=== PATIENT | male | born 1990 | race Two or more races ===

== ENCOUNTER 2016-08-14 03:39 | Emergency (ER) | payer BC, OTHER ==
[~2016-08-14 03:39] MED LIST: CLON0.5T3 PO; DOXY100T9 PO; EQUATE COUGH; HYDR-971 PO; IBUP200T43 PO; PRED20TA PO
[2016-08-14 03:51] VITALS: BP 153/74
[2016-08-14] MEDS ORDERED: ONDANSETRON ODT 4 MG TAB.RAPDIS PO ONE (04:00)
--- NOTE | 2016-08-14 04:08 | PHYS DOC ---
General Chief Complaint: ABDOMINAL PAIN Stated Complaint: PAIN IN LOWER ABDOMEN,NAUSEA Time Seen by MD: 03:42 Source: patient, old records Exam Limitations: no limitations Problems: History of Present Illness Initial Comments Pt is 25/M to ED c/o abdominal pain. Pt states that immediately prior to arrival pt was awakened with low abdominal pain described as moderate/cramping. Symptoms were relieved with one loose watery (diarrhea) stool. He decided to come to ED, on the way says he became nauseous and remains nauseous with belching. No emesis in ED or at home, no travel/bad food exposure. No fever/chills/myalgias, appetite intact. Pt states his appendix was removed at [facility] about 6 weeks ago. He's had his post-op appointments has been healing well no further f/u with surgery necessary. No prearrival treatment, no bloating, no blood in stool. Pt has 2 year history of abdominal pain with numerous ED visits [facility], [facility], [facility], [facility], [facility] known. Repeated negative workups, pt had been referred to GI and refused to go. ED VS: 97.9, 62, 20, 153/74, 100% RA Timing/Duration: 1/2 hour Severity: moderate Modifying Factors: worse with eating, improves with other Associated Symptoms: nausea/vomiting, other Allergies: Coded Allergies: amoxicillin (Unverified Allergy, Intermediate, rash, 03/31/16) rocephin ok clavulanic acid (Unverified Allergy, Intermediate, 02/24/14) Past Medical History Medical History: other (anxiety, GERD, noncompliance, tachycardia, leukocytosis , chronic abdominal pain) Surgical History: no surgical history, appendectomy Family History Significant Family History: no pertinent family hx Social History Smoker: cigarettes Alcohol: occasionally Drugs: none Review of Systems Constitutional: denies chills, denies diaphoresis, denies fever, denies malaise Respiratory: denies cough, denies shortness of breath, denies wheezing Cardiovascular: denies chest pain, denies palpitations Gastrointestinal: see HPI Genitourinary: denies dysuria, denies frequency, denies hematuria Musculoskeletal: denies back pain, denies joint swelling, denies neck pain Psychiatric/Neurological: denies headache, denies numbness, denies paresthesia Physical Exam General Appearance: WD/WN, no apparent distress Ear, Nose, Throat: hearing grossly normal, normal ENT inspection, normal pharynx Neck: non-tender, supple Respiratory: normal breath sounds, no respiratory distress Cardiovascular: normal peripheral pulses, regular rate, rhythm Gastrointestinal: normal bowel sounds, soft (ND, mild suprapubic TTP no r/g/ mass, healing scars c/w history) Rectal: deferred Back: no CVA tenderness, no vertebral tenderness Extremities: non-tender, normal inspection 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 Departure Time of Disposition: 04:53 Disposition: 01 HOME, SELF-CARE Diagnosis: gastroenteritis, hypokalemia Condition: GOOD Patient Instructions: Hypokalemia-Brief, Viral Gastroenteritis, [id number] Additional Instructions: Activity as tolerated. Clear liquids, advance to bland diet as tolerated. Aggressive hydration with gatorade, water. Eat one banana twice daily until follow up appointment. Rx: zofran odt, dicyclomine Follow up with your doctor in 3 days for recheck of symptoms and potassium. Return to ED with new or changing symptoms. ALYCIA MARTINEZ DO Aug 14, 2016 04:08
[2016-08-14 04:24] LABS: BILIRUBIN,URINE NEG (NEG); CLARITY,URINE CLEAR; COLOR,URINE YELLOW; GLUCOSE,URINE NEG (NEG); UROBILINOGEN,URINE 0.2 mg/dL (0.2 mg/dL)
[2016-08-14 04:25] LABS: BACTERIA,URINE 0 /HPF (0-FEW); NITRITE,URINE NEG (NEG); RBC,URINE OCC /HPF (0-2); WBC,URINE RARE /HPF (0-4)
[2016-08-14] MEDS ORDERED: SIMETHICONE 80 MG TAB.CHEW PO PRN (04:30)
[2016-08-14 04:45] LABS: BASO # 0.1 x10^3/uL (0.0-0.2); BASO % 1 % (0-3); EOS # 0.3 x10^3/uL (0.0-0.7); EOS % 2 % (0-3); HEMATOCRIT 44.9 % (39.0-53.0); HEMOGLOBIN 14.8 g/dL (13.0-17.5); LYMPH # 4.2 x10^3/uL (1.0-4.8); LYMPH % 35 % (24-48); MEAN CORPUSCULAR HEMOGLOBIN 28 pg (25-35); MEAN CORPUSCULAR HGB CONC 33 g/dL (31-37); MEAN CORPUSCULAR VOLUME 86 fL (79-100); MONO # 1.3 x10^3/uL (0.0-1.1); MONO % 11 % (0-9); NEUT % 51 % (31-73); PLATELET COUNT 276 x10^3/uL (140-400); RED BLOOD COUNT 5.22 x10^6/uL (4.30-5.70); RED CELL DISTRIBUTION WIDTH 13.4 % (11.5-14.5); WHITE BLOOD COUNT 11.8 x10^3/uL (4.0-11.0)
[2016-08-14 04:48] LABS: CALCIUM 8.5 mg/dL (8.5-10.1); POTASSIUM 3.3 mmol/L (3.5-5.1)
[2016-08-14] MEDS ORDERED: DICY20TA3 PO (04:57)
[2016-08-14] MEDS ORDERED: ONDA4TAB10 PO (04:57)
[2016-08-14] MEDS ORDERED: POTASSIUM CHLORIDE 20 MEQ TABLET.ER. PO ONE (05:00)
--- NOTE | 2016-08-14 07:15 | RAD ---
Abdomen radiograph History: Lower abdominal pain with diarrhea and nausea today. Comparison: 06/28/2016. Findings: AP supine and upright views of the abdomen. Bowel gas pattern is nonspecific, without evidence of obstruction. No convincing nephrolithiasis is seen. Suture material is seen in the right lower quadrant, compatible with appendectomy. Impression: Nonspecific bowel gas pattern.
== END 2016-08-14 05:10 | disposition home or self-care (01) ==
LOC: ER 03:39
DX: K52.9 Noninfective gastroenteritis and colitis, unspecified (principal); E87.6 Hypokalemia; F17.210 Nicotine dependence, cigarettes, uncomplicated; K21.9 Gastro-esophageal reflux disease without esophagitis; G89.29 Other chronic pain; Z88.1 Allergy status to other antibiotic agents
CPT/HCPCS: 36415; 74020; 80048; 81001; 85027; 99285; Q0162

== ENCOUNTER 2016-12-02 21:36 | Emergency (ER) | payer BC ==
[~2016-12-02] VITALS: Ht 175.3 cm; Wt 103.6 kg
[~2016-12-02 21:36] MED LIST changes: +DICY20TA3 PO; +ONDA4TAB10 PO
[2016-12-02 21:43] VITALS: BP 153/85
--- NOTE | 2016-12-02 23:37 | ED.ADGEN ---
Past History Past Medical History: Anxiety Additional Past Medical Histor: Tachycardia for 3 years Past Surgical History: Appendectomy Smoking: Cigarettes Alcohol Use: None Drug Use: None Adult General Chief Complaint Chief Complaint anxiety HPI HPI long hx of anxiety. started getting anxious tonight while watching TV. went outside to get air but couldn't calm down. He states he has had holter monitors before that were normal. he takes clonazepam. he did not take an extra one tonight. he is calmer now. Review of Systems Review of Systems Constitutional: Denies fever or chills [] Eyes: Denies change in visual acuity, redness, or eye pain [] HENT: Denies nasal congestion or sore throat [] Respiratory: Denies cough or shortness of breath [] Cardiovascular: No additional information not addressed in HPI [] GI: Denies abdominal pain, nausea, vomiting, bloody stools or diarrhea [] : Denies dysuria or hematuria [] Musculoskeletal: Denies back pain or joint pain [] Integument: Denies rash or skin lesions [] Neurologic: Denies headache, focal weakness or sensory changes [] Endocrine: Denies polyuria or polydipsia [] Current Medications Current Medications Current Medications Medications (Trade) Dose Ordered Sig/Lionel Start Time Stop Time Status Last Admin Dose Admin Clonazepam (KlonoPIN) 0.5 mg 1X ONCE 12/02/16 23:45 12/02/16 23:46 DC 12/02/16 23:45 0.5 MG Famotidine (Pepcid) 20 mg 1X ONCE 12/03/16 00:00 12/03/16 00:00 DC 12/02/16 23:48 20 MG Allergies Allergies Allergies Coded Allergies Type Severity Reaction Last Updated Verified amoxicillin Allergy Intermediate rash 03/31/16 No clavulanic acid Allergy Intermediate 02/24/14 No Physical Exam Physical Exam Constitutional: Well developed, well nourished, no acute distress, non-toxic appearance, not anxious now. [] HENT: Normocephalic, atraumatic, bilateral external ears normal, oropharynx moist, no oral exudates, nose normal. [] Eyes: PERRLA, EOMI, conjunctiva normal, no discharge. [] Neck: Normal range of motion, no tenderness, supple, no stridor. [] Cardiovascular:Heart rate regular rhythm, no murmur [] Lungs & Thorax: Bilateral breath sounds clear to auscultation [] Abdomen: Bowel sounds normal, soft, no tenderness, no masses, no pulsatile masses. [] Skin: Warm, dry, no erythema, no rash. [] Back: No tenderness, no CVA tenderness. [] Extremities: No tenderness, no cyanosis, no clubbing, ROM intact, no edema. [] Neurologic: Alert and oriented X 3, normal motor function, normal sensory function, no focal deficits noted. [] Psychologic: Affect normal, judgement normal, mood normal. [] Current Patient Data Vital Signs Vital Signs Date Time Temp Pulse Resp B/P (MAP) Pulse Ox O2 Delivery O2 Flow Rate FiO2 12/02/16 21:43 98.8 80 16 96 Room Air EKG EKG [] Radiology/Procedures Radiology/Procedures [] Course & Med Decision Making Course & Med Decision Making pt with significant, uncontrolled anxiety. he has not seen counselor to learn coping skills. I tried to express the importance of counseling. he is to call pcp to discuss other meds and go to guidance center for counseling Final Impression Final Impression anxiety[] Problems: Dragon Disclaimer Dragon Disclaimer This electronic medical record was generated, in whole or in part, using a voice recognition dictation system. ALEM PEREZ MD Dec 02, 2016 23:37
[2016-12-02] MEDS ORDERED: clonazePAM 1 MG TABLET PO ONE (23:45)
[2016-12-03] MEDS ORDERED: FAMOTIDINE 20 MG TABLET PO ONE
== END 2016-12-02 23:50 | disposition home or self-care (01) ==
LOC: ER 21:36
DX: F41.9 Anxiety disorder, unspecified (principal); F17.210 Nicotine dependence, cigarettes, uncomplicated; Z88.1 Allergy status to other antibiotic agents
CPT/HCPCS: 99284

== ENCOUNTER 2016-12-15 02:34 | Emergency (ER) | payer BC ==
[~2016-12-15] VITALS: Ht 175.3 cm; Wt 103.6 kg
[2016-12-15 02:56] VITALS: BP 142/83
--- NOTE | 2016-12-15 03:00 | PHYS DOC ---
Past History Past Medical History: Anxiety Additional Past Medical Histor: Tachycardia for 3 years Past Surgical History: Appendectomy Smoking: Cigarettes Alcohol Use: None Drug Use: None Adult General Chief Complaint Chief Complaint: NAUSEA/VOMITING/DIARRHEA HPI HPI Patient is a 26 year old male who presents with abdominal pain. He has had pain like this before he states. This episode awakened him from sleep approx one hour ago. Nausea but no vomiting. No ethanol use. No fever. Has been constipation; no blood in stool. Pain is "all over" and cramping. No travel. Review of Systems Review of Systems Constitutional: Denies fever or chills Eyes: Denies change in visual acuity, redness, or eye pain HENT: Denies nasal congestion or sore throat Respiratory: Denies cough or shortness of breath Cardiovascular: No chest pain GI: Denies abdominal pain, nausea, vomiting, bloody stools or diarrhea : Denies dysuria or hematuria Musculoskeletal: Denies back pain or joint pain Integument: Denies rash or skin lesions Neurologic: Denies headache, focal weakness or sensory changes Allergies Allergies Allergies Coded Allergies Type Severity Reaction Last Updated Verified amoxicillin Allergy Intermediate rash 03/31/16 No clavulanic acid Allergy Intermediate 02/24/14 No Physical Exam Physical Exam Constitutional: Well developed, well nourished, no acute distress, non-toxic appearance. HENT: Normocephalic, atraumatic, bilateral external ears normal, oropharynx moist, no oral exudates, nose normal. Eyes: PERRLA, EOMI, conjunctiva normal, no discharge. Neck: Normal range of motion, no tenderness, supple, no stridor. Cardiovascular:Heart rate regular rhythm, no murmur Lungs & Thorax: Bilateral breath sounds clear to auscultation Abdomen: Bowel sounds normal, soft, tenderness mid abdomen but no rebound or guarding, no masses, no pulsatile masses. Skin: Warm, dry, no erythema, no rash. Multiple tattoos. Back: No tenderness, no CVA tenderness. Extremities: No tenderness, no cyanosis, no clubbing, ROM intact, no edema. Neurologic: Alert and oriented X 3, normal motor function, normal sensory function, no focal deficits noted. Psychologic: Affect normal, judgement normal, mood normal. Current Patient Data Vital Signs Vital Signs Date Time Temp Pulse Resp B/P (MAP) Pulse Ox O2 Delivery O2 Flow Rate FiO2 8/7/17 02:56 97.8 66 20 99 Room Air Lab Results Laboratory Tests Test 12/15/16 03:10 White Blood Count 10.8 x10^3/uL Red Blood Count 5.10 x10^6/uL Hemoglobin 14.9 g/dL Hematocrit 44.5 % Mean Corpuscular Volume 87 fL Mean Corpuscular Hemoglobin 29 pg Mean Corpuscular Hemoglobin Concent 33 g/dL Red Cell Distribution Width 13.7 % Platelet Count 269 x10^3/uL Neutrophils (%) (Auto) 53 % Lymphocytes (%) (Auto) 35 % Monocytes (%) (Auto) 8 % Eosinophils (%) (Auto) 3 % Basophils (%) (Auto) 1 % Neutrophils # (Auto) 5.8 x10^3uL Lymphocytes # (Auto) 3.7 x10^3/uL Monocytes # (Auto) 0.9 x10^3/uL Eosinophils # (Auto) 0.3 x10^3/uL Basophils # (Auto) 0.1 x10^3/uL Sodium Level 142 mmol/L Potassium Level 4.4 mmol/L Chloride Level 107 mmol/L Carbon Dioxide Level 31 mmol/L Anion Gap 4 Blood Urea Nitrogen 12 mg/dL Creatinine 1.0 mg/dL Estimated GFR (Cockcroft-Gault) 90.3 BUN/Creatinine Ratio 12 Glucose Level 97 mg/dL Calcium Level 8.2 mg/dL Total Bilirubin 0.3 mg/dL Aspartate Amino Transf (AST/SGOT) 15 U/L Alanine Aminotransferase (ALT/SGPT) 24 U/L Alkaline Phosphatase 82 U/L Total Protein 6.7 g/dL Albumin 3.7 g/dL Albumin/Globulin Ratio 1.2 Amylase Level 41 U/L Lipase 112 U/L Current Medications Medications (Trade) Dose Ordered Sig/Lionel Route PRN Reason Start Time Stop Time Status Last Admin Dose Admin Ondansetron HCl (Zofran) 4 mg 1X ONCE IV 12/15/16 03:30 12/15/16 03:31 DC 12/15/16 03:13 Sodium Chloride 100 ml @ 200 mls/hr 1X ONCE IV 12/15/16 03:30 12/15/16 03:59 Cancel Sodium Chloride 1,000 ml @ 1,000 mls/hr Q1H IV 12/15/16 03:15 12/15/16 04:14 DC 12/15/16 03:13 Course & Med Decision Making Course & Med Decision Making Evaluated patient. Lab is normal. No evidence of acute surgical abdomen. Home w rx zofran and bentyl and referral for f/u Dragon Disclaimer Dragon Disclaimer This chart was dictated in whole or in part using Voice Recognition software in a busy, high-work load, and often noisy Emergency Department environment. It may contain unintended and wholly unrecognized errors or omissions. Departure Departure: Impression: Primary Impression: Abdominal pain Disposition: HOME, SELF-CARE Condition: GOOD Referrals: CHELSEA OLSON MD (PCP) Patient Instructions: Abdominal Pain Scripts Ondansetron (ZOFRAN ODT) 8 Mg Tab.rapdis 8 MG PO PRN Q6-8HRS Y for NAUSEA, #10 Prov: CHRISSIE CASTAÑEDA MD 12/15/16 Dicyclomine Hcl (BENTYL) 10 Mg Capsule 1 CAP PO TID, #20 CAP 1 Refill Prov: CHRISSIE CASTAÑEDA MD 12/15/16 CHRISSIE CASTAÑEDA MD Dec 15, 2016 03:00
[2016-12-15] MEDS ORDERED: IV NORMAL SALINE 1,000ML 1,000 ML IV SCH (03:15)
[2016-12-15] MEDS ORDERED: ONDANSETRON PF 4 MG/2 ML VIAL. IV ONE (03:30)
[2016-12-15] MEDS ORDERED: IV NORMAL SALINE 100ML 100 ML IV ONE (03:30)
[2016-12-15 03:34] LABS: BASO # 0.1 x10^3/uL (0.0-0.2); BASO % 1 % (0-3); EOS # 0.3 x10^3/uL (0.0-0.7); EOS % 3 % (0-3); HEMATOCRIT 44.5 % (39.0-53.0); HEMOGLOBIN 14.9 g/dL (13.0-17.5); LYMPH # 3.7 x10^3/uL (1.0-4.8); LYMPH % 35 % (24-48); MEAN CORPUSCULAR HEMOGLOBIN 29 pg (25-35); MEAN CORPUSCULAR HGB CONC 33 g/dL (31-37); MEAN CORPUSCULAR VOLUME 87 fL (79-100); MONO # 0.9 x10^3/uL (0.0-1.1); MONO % 8 % (0-9); NEUT # 5.8 x10^3uL (1.8-7.7); NEUT % 53 % (31-73); PLATELET COUNT 269 x10^3/uL (140-400); RED CELL DISTRIBUTION WIDTH 13.7 % (11.5-14.5); WHITE BLOOD COUNT 10.8 x10^3/uL (4.0-11.0)
[2016-12-15 03:44] LABS: ALBUMIN 3.7 g/dL (3.4-5.0); ALBUMIN/GLOBULIN RATIO 1.2 (1.0-1.7); CALCIUM 8.2 mg/dL (8.5-10.1); GFR 90.3; TOTAL BILIRUBIN 0.3 mg/dL (0.2-1.0); TOTAL PROTEIN 6.7 g/dL (6.4-8.2)
[2016-12-15 04:22] LABS: POTASSIUM 4.4 mmol/L (3.5-5.1)
[2016-12-15] MEDS ORDERED: DICY10CA53 PO (04:30)
[2016-12-15] MEDS ORDERED: ONDA8TAB12 PO (04:30)
== END 2016-12-15 04:38 | disposition home or self-care (01) ==
LOC: ER 02:34
DX: R10.9 Unspecified abdominal pain (principal); K59.00 Constipation, unspecified; R11.0 Nausea; F17.210 Nicotine dependence, cigarettes, uncomplicated; Z90.49 Acquired absence of other specified parts of digestive tract; Z88.1 Allergy status to other antibiotic agents
CPT/HCPCS: 36415; 80053; 82150; 83690; 85027; 96361; 96374; 99284; J2405; J7030

== ENCOUNTER 2016-12-21 07:32 | Emergency (ER) | payer BC ==
[~2016-12-21 07:32] MED LIST changes: +DICY10CA53 PO; +ONDA8TAB12 PO
[2016-12-21 07:41] VITALS: BP 143/86
--- NOTE | 2016-12-21 08:02 | PHYS DOC ---
General Chief Complaint: SKIN PROBLEM Stated Complaint: INSECT BITE Time Seen by MD: 07:43 Source: patient, old records Exam Limitations: no limitations Problems: History of Present Illness Initial Comments Pt is 26/M to ED c/o possible bug bite. Pt states today he noticed what he thought may have been an ingrown hair or a spider bite. Patient hasn't seen any spiders nor has he seen any ticks. Patient has had MRSA lesions in the past as well. Patient says he was undressing earlier and noticed a bump on his medial right thigh. It was itching slightly and tender when touched and he says there was some purulent discharge at the time which has since stopped. Throughout the day some mild redness has increased around the bump and he felt like he should be seen so he came to the facility for evaluation. Patient's symptoms are limited to the skin of his medial right thigh, he's had no fever chills or lethargy myalgias or arthralgias fatigue nausea or vomiting. No pre-arrival treatment symptoms are described as very mild and are only noticed when he bumped up against the skin lesion. He denies any cough wheeze lump in throat or dyspnea on exertion and states that his tetanus is up-to-date. Timing/Duration: 1-3 hours Severity: mild Modifying Factors: worse with movement, improves with rest Associated Symptoms: rash Allergies: Coded Allergies: amoxicillin (Unverified Allergy, Intermediate, rash, 03/31/16) rocephin ok clavulanic acid (Unverified Allergy, Intermediate, 02/24/14) Past Medical History Medical History: other Surgical History: no surgical history, appendectomy Psychosocial History: anxiety Family History Significant Family History: no pertinent family hx Social History Smoker: cigarettes Alcohol: occasionally Drugs: none Review of Systems Constitutional: denies chills, denies diaphoresis, denies fever, denies malaise EENTM: denies throat swelling, denies mouth swelling Respiratory: denies cough, denies shortness of breath, denies wheezing Cardiovascular: denies chest pain, denies palpitations, denies syncope Gastrointestinal: denies diarrhea, denies nausea, denies vomiting Musculoskeletal: denies back pain, denies joint pain, denies joint swelling, denies neck pain Skin: see HPI Psychiatric/Neurological: denies headache, denies numbness, denies paresthesia Physical Exam General Appearance: no apparent distress Neck: non-tender, supple Respiratory: normal breath sounds, no respiratory distress Cardiovascular: normal peripheral pulses, regular rate, rhythm Gastrointestinal: non tender, soft Extremities: other (at the medial aspect of the right thigh running along the lower border of the elastic band of his brief there is a 1 cm tender red bump with a scab to darkened center no discharge. The area is mildly tender and there is a surrounding halo of erythema approximately 1.5 cm. There is no induration there is no fluctuance there is no inguinal lymphadenopathy a few small what appear to be satellite lesions are evident adjacent. 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 I discussed the likelihood that it was an MRSA lesion although also discussed sometimes early spider bites can be difficult to distinguish. I discussed treatment as MRSA lesion with oral and topical antibiotics and close PCP follow- up. Wound dressing and care was discussed the patient was advised to stop smoking to promote wound healing and optimal health. He expressed agreement and understanding with this treatment plan. Departure Time of Disposition: 07:59 Disposition: 01 HOME, SELF-CARE Diagnosis: cellulitis right thigh, tobaccoism, Condition: GOOD Patient Instructions: MRSA Overview, Smoking Cessation, Tips For Success Additional Instructions: Stop smoking, seek medical assistance if necessary. Warm compresses 4x/day. OTC tylenol as needed. Rx: doxycycline, bactroban Follow up with your doctor in 3-5 days. Return to ED with new or changing symptoms. ALYCIA MARTINEZ DO Dec 21, 2016 08:01
[2016-12-21] MEDS ORDERED: DOXY100T PO (08:04)
[2016-12-21] MEDS ORDERED: MUPI15CR TP (08:04)
== END 2016-12-21 08:08 | disposition home or self-care (01) ==
LOC: ER 07:32
DX: L03.115 Cellulitis of right lower limb (principal); F17.210 Nicotine dependence, cigarettes, uncomplicated; Z88.1 Allergy status to other antibiotic agents
CPT/HCPCS: 99283

== ENCOUNTER 2017-01-25 19:16 | Emergency (ER) | payer BC ==
[~2017-01-25] VITALS: Ht 177.8 cm; Wt 99.9 kg
[~2017-01-25 19:16] MED LIST changes: +DOXY100T PO; +MUPI15CR TP
--- NOTE | 2017-01-25 20:06 | PHYS DOC ---
Past History Past Medical History: Anxiety Additional Past Medical Histor: Tachycardia for 3 years Past Surgical History: No Surgical History Smoking: Cigarettes Alcohol Use: Occasionally Drug Use: None Adult General Chief Complaint Chief Complaint: SORE THROAT [facility] HPI Patient is a pleasant 26 showed male who presents with sore throat, nonproductive cough and chest pain for last 2 weeks. Patient says the chest pain will last 1-2 hours and center chest after a coughing spell it does not radiate to his back, arms or shoulders, does not radiate any shortness of breath. Pain is worse when he takes a deep breath in. This describes as dull achy with sharp stabbing features as well. Patient has had a sore throat with no change in voice, some anterior neck pain but no localized swelling or stiffness. Patient has had runny nose with production of green and brown mucus. He denies any ear pain, ear drainage, or tinnitus. He denies any fevers, chills or other symptoms. He's had no sick contacts, no travel outside the country no recent antibiotics. Patient was advised by his primary care doctor, to the emergency room since he cannot get him in to the clinic for another week and half. Review of Systems Review of Systems Constitutional: Denies fever or chills [] Eyes: Denies change in visual acuity, redness, or eye pain [] HENT: He does complain of nasal congestion or sore throat Respiratory: He does complain of a cough Cardiovascular: No additional information not addressed in HPI [] GI: Denies abdominal pain, nausea, vomiting, bloody stools or diarrhea [] : Denies dysuria or hematuria [] Musculoskeletal: Denies back pain or joint pain [] Integument: Denies rash or skin lesions [] Neurologic: Denies headache, focal weakness or sensory changes [] Endocrine: Denies polyuria or polydipsia [] Allergies Allergies Allergies Coded Allergies Type Severity Reaction Last Updated Verified amoxicillin Allergy Intermediate rash 03/31/16 No clavulanic acid Allergy Intermediate 02/24/14 No Physical Exam Physical Exam Constitutional: Well developed, well nourished, no acute distress, non-toxic appearance. [] HENT: Normocephalic, atraumatic, bilateral external ears normal, oropharynx demonstrates tonsillar hypertrophy with marked exudates +2, Eyes: PERRLA, EOMI, conjunctiva normal, no discharge. [] Neck: Normal range of motion, no tenderness, supple, no stridor. She has some anterior cervical chain lymphadenopathy Cardiovascular:Heart rate regular rhythm, no murmur patient is some chest wall tenderness is reproducible and percussion. In the center of his chest service sternum. Lungs & Thorax: Bilateral breath sounds clear to auscultation [] Abdomen: Bowel sounds normal, soft, no tenderness, no masses, no pulsatile masses. [] Skin: Warm, dry, no erythema, no rash. [] Extremities: No tenderness,. [] Neurologic: Alert and oriented X 3, normal motor function, normal sensory function, no focal deficits noted. [] Psychologic: Seems somewhat anxious Current Patient Data Lab Results His rapid strep test is negative, EKG EKG []EKG timed 8:06 PM 01/25/2017 demonstrates normal sinus rhythm with a heart rate of 88 GA interval of 138 which is normal QRS width of 94 which is normal QTC was 47 which is normal this is an otherwise normal looking EKG with no asymmetry with changes consistent with acute coronary event or ischemia. He does have some nonspecific T-wave flattening only in lead [address] Zhang Radiology/Procedures Radiology/Procedures []Two-view chest x-ray read by me time to 8:13 PM 01/25/2017 demonstrates increased perihilar markings but no clear pulmonary M, no hyperinflation, no cardiomegaly, no pleural effusion or specific infiltrate. Course & Med Decision Making Course & Med Decision Making Pertinent Labs and Imaging studies reviewed. (See chart for details) she presents with sore throat, productive cough, and chest pain that is likely most the skull in nature. Patient's EKG and chest x-ray are really unremarkable. Given his duration of symptoms I'll place him on some azithromycin ankle cough suppressant was am going to treat his sore throat besides of Decadron. Patient been warned quit smoking a second to contribute to his symptoms. Patient asked to follow-up with his primary care doctor. Differential diagnosis for chest pain: Pericarditis, myocarditis, endocarditis, pneumothorax, pneumonia, aortic dissection, esophageal spasm, esophagitis, peptic ulcer disease, acute coronary syndrome, mediastinitis, Boerhaave syndrome , musculoskeletal chest wall pain, costochondritis, intercostal strain, rib fracture, pulmonary contusion, pneumonitis, pleural effusion, pericardial effusion, pericardial tamponode, and pleurisy. Was considered upon arrival given patient's age, risk factors and negative EKG and chest x-ray believe he is low risk and can follow-up with his primary care doctor. [] Dragon Disclaimer Dragon Disclaimer This chart was dictated in whole or in part using Voice Recognition software in a busy, high-work load, and often noisy Emergency Department environment. It may contain unintended and wholly unrecognized errors or omissions. Departure Departure: Impression: Primary Impression: Anxiety Additional Impressions: Pharyngitis Chest pain Disposition: HOME, SELF-CARE Condition: IMPROVED Referrals: CHELSEA OLSON MD (PCP) Patient Instructions: Chest Pain (Nonspecific), Chest Wall Pain, Viral and Bacterial Pharyngitis Additional Instructions: My discharge plan Follow up: In addition patient is asked to followup with their primary doctor, within a week for followup examination and to address patient's ongoing medical conditions. Patient is advised that in the Emergency Department primary complaints are addressed and only in light of known signs and symptoms. Patient should return immediately to the emergency department if new signs and symptoms develop or patient's condition worsens in any way. At time of discharge patient was in stable condition and had verbalized understanding of the discharge instructions. Scripts Benzonatate (TESSALON PERLE) 100 Mg Capsule 1 CAP PO TID, #21 CAP Prov: DANNY ZHANG MD 01/25/17 Guaifenesin/Dextromethorphan (MUCINEX DM ER 1,200-60 MG TAB) 1 Each Tbmp.12hr 1 TAB PO BID, #20 TAB 1 Refill Prov: DANNY ZHANG MD 01/25/17 Azithromycin (AZITHROMYCIN TABLET) 250 Mg Tablet 250 MG PO DAILY for ANTI-BIOTIC for 5 Days, #6 TAB 0 Refills Please take 2 times the first day Please take one tablet day 2 through 5. Prov: DANNY ZHANG MD 01/25/17 Albuterol Sulfate (PROVENTIL HFA INHALER) 6.7 Gm Hfa.aer.ad 1-2 PUFF IH PRN Q4HRS Y for WHEEZING for 7 Days, INHALER 0 Refills Please dispense inhaler with a spacer Prov: DANNY ZHANG MD 01/25/17 Problem Qualifiers DANNY ZHANG MD Jan 25, 2017 20:06
[2017-01-25] MEDS ORDERED: DEXAMETHASONE SOD PHOS 10 MG/ML VIAL PO ONE (20:15)
[2017-01-25] MEDS ORDERED: GUAI1TBM10 PO (20:23)
[2017-01-25] MEDS ORDERED: BENZ100C PO (20:23)
[2017-01-25] MEDS ORDERED: ALBU6.7H IH (20:23)
[2017-01-25] MEDS ORDERED: AZIT250T6 PO (20:23)
[2017-01-25 23:30] VITALS: BP 138/68
--- NOTE | 2017-01-26 08:19 | RAD ---
Chest, 2 views, 01/25/2017: History: Chest pain and fever The heart size and pulmonary vascularity are normal. No pulmonary infiltrates are seen. There is no evidence of pleural fluid. IMPRESSION: No acute cardiopulmonary abnormality is detected.
--- NOTE | 2017-01-27 19:01 | EKG ---
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
== END 2017-01-25 20:36 | disposition home or self-care (01) ==
LOC: ER 19:16
DX: J02.9 Acute pharyngitis, unspecified (principal); F41.9 Anxiety disorder, unspecified; R07.89 Other chest pain; F17.210 Nicotine dependence, cigarettes, uncomplicated; Z88.1 Allergy status to other antibiotic agents; Z88.8 Allergy status to other drugs, medicaments and biological substances
CPT/HCPCS: 71020; 87070; 87880; 93005; 99285; J1100

== ENCOUNTER 2017-04-14 00:04 | Emergency (ER) | payer BC ==
[~2017-04-14] VITALS: Ht 177.8 cm; Wt 99.9 kg
[~2017-04-14 00:04] MED LIST changes: +ALBU6.7H IH; +AZIT250T6 PO; +BENZ100C PO; +GUAI1TBM10 PO
[2017-04-14] MEDS ORDERED: FAMOTIDINE 20 MG/2 ML VIAL IVP ONE (00:15)
[2017-04-14] MEDS ORDERED: methylPREDNISolone SOD SUCC PF 125 MG/2 ML VIAL. IV ONE (00:15)
[2017-04-14] MEDS ORDERED: diphenhydrAMINE 50 MG/ML VIAL IV ONE (00:15)
[2017-04-14] MEDS ORDERED: ONDANSETRON PF 4 MG/2 ML VIAL. ONE (00:29)
--- NOTE | 2017-04-14 00:56 | PHYS DOC ---
General Chief Complaint: ALLERGIC REACTION Stated Complaint: ALLERGIC REACTION Time Seen by MD: 00:15 Source: patient Exam Limitations: no limitations Problems: History of Present Illness Initial Comments Age and is a 26-year-old male who comes to the ED complaining of possible allergic reaction. Patient states that yesterday he had a left axillary abscess I&D at [facility]. He states that he was prescribed Bactrim DS and took his first tablet this evening approximately one hour prior to arrival. He states shortly after taking it he began itching in his skin felt as if it were "pins and needles." He states his mouth and eyes became very dry and he became concerned, he looked on google and determined he was having an allergic reaction. He took a Klonopin prior to coming because he began to get anxious and on arrival denies any face or throat swelling no cough hoarseness or dyspnea on exertion no wheezing. He is obviously anxious and his heart rate is 102 bpm otherwise vital signs are stable. Timing/Duration: 1 hour Severity: mild Modifying Factors: worse with medication Associated Symptoms: rash, other Allergies: Coded Allergies: amoxicillin (Unverified Allergy, Intermediate, rash, 03/31/16) rocephin ok clavulanic acid (Unverified Allergy, Intermediate, 02/24/14) Penicillins (Verified Allergy, Unknown, 04/14/17) sulfamethoxazole (Verified Allergy, Unknown, 04/14/17) trimethoprim (Verified Allergy, Unknown, 04/14/17) Past Medical History Medical History: other Surgical History: no surgical history, appendectomy Psychosocial History: anxiety Family History Significant Family History: no pertinent family hx Social History Smoker: cigarettes Alcohol: occasionally Drugs: none Review of Systems Constitutional: denies chills, denies diaphoresis, denies fever, denies malaise EENTM: denies eye pain, denies ear pain, denies nose pain, denies throat pain, denies throat swelling, denies mouth swelling Respiratory: denies cough, denies shortness of breath, denies wheezing Cardiovascular: denies chest pain, denies palpitations, denies syncope Gastrointestinal: denies abdominal pain, nausea, denies vomiting Genitourinary: denies dysuria, denies frequency, denies hematuria Musculoskeletal: denies back pain, denies joint swelling, denies neck pain Skin: see HPI Psychiatric/Neurological: see HPI Physical Exam General Appearance: WD/WN, mild distress Eyes: bilateral eye normal inspection, bilateral eye PERRL, bilateral eye EOMI Ear, Nose, Throat: hearing grossly normal, normal ENT inspection, normal pharynx (no oropharyngeal swelling airway is patent) Neck: non-tender, supple Respiratory: normal breath sounds, no respiratory distress Cardiovascular: normal peripheral pulses, regular rate, rhythm Gastrointestinal: non tender, soft Back: no CVA tenderness, no vertebral tenderness Extremities: non-tender, normal inspection Neurologic/Psychiatric: surgical oncologist II-XII nml as tested, no motor/sensory deficits, alert, oriented x 3, other (anxious) Skin: normal color, warm/dry (no rash noted) Orders, Labs, Meds Although no obvious physical exam signs of allergic reaction empiric treatment: Solu-Medrol, Benadryl, and Pepcid intravenously. 0134: Patient rechecked, he is sleeping maintained normal vital signs. He has no new or progressive symptoms his airway remains patent without any soft tissue swelling and there is no obvious rash. When he is awakened he still complains of anxiety however he does fall right back asleep. I discussed discharge and further treatment with his significant other who is at bedside and will drive him home. Signs and symptoms to monitor as well as indications for urgent return to the department were discussed and I discussed over-the- counter and prescription medications. I discussed close follow-up with Dr. Lucia fuentes today and a work excuse. Patient and significant other expressed agreement and understanding with the treatment plan and he was advised to stop smoking. Departure Time of Disposition: 01:25 Disposition: HOME, SELF-CARE Diagnosis: allergic reaction Condition: IMPROVED Patient Instructions: Drug Allergy Additional Instructions: As discussed based upon the reported symptoms moving forward I would consider all sulfonamides contraindicated due to allergic or adverse reaction. Work excuse for April 14. No driving or operating machinery while sedated with medications. [id number] Pepcid and Benadryl while taking prednisone. Prescription: Prednisone Follow-up with Dr. Lucia fuentes today for recheck. Return to ED with new or changing symptoms. ALYCIA MARTINEZ DO Apr 14, 2017 00:56
[2017-04-14] MEDS ORDERED: PRED20TA PO (01:25)
[2017-04-14] MEDS ORDERED: predniSONE 20 MG TABLET PO ONE (01:30)
[2017-04-14 01:40] VITALS: BP 132/78
== END 2017-04-14 01:40 | disposition home or self-care (01) ==
LOC: ER 00:04
DX: T37.0X5A Adverse effect of sulfonamides, initial encounter (principal); F17.210 Nicotine dependence, cigarettes, uncomplicated; F41.9 Anxiety disorder, unspecified; Z88.1 Allergy status to other antibiotic agents; Z88.0 Allergy status to penicillin; Y92.89 Other specified places as the place of occurrence of the external cause
CPT/HCPCS: 96374; 96375; 99284; J1200; J2930; J7512; S0028

== ENCOUNTER 2017-04-14 13:49 | Emergency (ER) | payer BC ==
[~2017-04-14] VITALS: Ht 175.3 cm; Wt 102.1 kg
[~2017-04-14 13:49] MED LIST changes: -IBUP200T43 PO; +IBUP200T44 PO
[2017-04-14] MEDS ORDERED: IV NORMAL SALINE 1,000ML 1,000 ML IV ONE (14:30)
[2017-04-14 14:58] LABS: BASO % 0 % (0-3); EOS % 0 % (0-3); HEMATOCRIT 45.1 % (39.0-53.0); LYMPH # 0.9 x10^3/uL (1.0-4.8); LYMPH % 8 % (24-48); MEAN CORPUSCULAR HEMOGLOBIN 29 pg (25-35); MEAN CORPUSCULAR HGB CONC 33 g/dL (31-37); MEAN CORPUSCULAR VOLUME 88 fL (79-100); MONO # 0.4 x10^3/uL (0.0-1.1); MONO % 3 % (0-9); NEUT # 10.8 x10^3uL (1.8-7.7); NEUT % 89 % (31-73); PLATELET COUNT 329 x10^3/uL (140-400); RED BLOOD COUNT 5.13 x10^6/uL (4.30-5.70); RED CELL DISTRIBUTION WIDTH 13.9 % (11.5-14.5); WHITE BLOOD COUNT 12.2 x10^3/uL (4.0-11.0)
[2017-04-14 15:05] LABS: ALBUMIN 3.9 g/dL (3.4-5.0); CREATININE 1.2 mg/dL (0.7-1.3); GFR 73.2; POTASSIUM 3.9 mmol/L (3.5-5.1); TOTAL BILIRUBIN 0.2 mg/dL (0.2-1.0); TOTAL PROTEIN 7.7 g/dL (6.4-8.2)
[2017-04-14 15:28] LABS: BARBITURATES NEG (NEG); BENZODIAZEPINES NEG (NEG); CANNABINOIDS NEG (NEG); COCAINE NEG (NEG); METHADONE NEG (NEG); OPIATES NEG (NEG); PHENCYCLIDINE NEG (NEG)
[2017-04-14 15:31] LABS: AMPHETAMINE/METHAMPHETAMINE NEG (NEG)
--- NOTE | 2017-04-14 15:51 | PHYS DOC ---
Past History Past Medical History: Anxiety Additional Past Medical Histor: Tachycardia for 3 years Past Surgical History: Appendectomy Smoking: Cigarettes, Less than 1pk/day Alcohol Use: Occasionally Drug Use: None Adult General Chief Complaint Chief Complaint: RAPID HEART RATE HPI HPI 26-year-old male patient complaining of palpitation that started about an hour prior to arrival as a constant feeling in his left side of chest without chest pain, shortness of breath, dizziness, fever and chills. Patient states he feels a little bit nauseous. She states she had history of anxiety with palpitation but today his palpitation is different than his usual and complaining of some pain in left upper quadrant associated with the palpitation. Patient had left axillary abscess that was drained 2 days ago and was started on Bactrim and had an allergic reaction and was seen in this emergency room last night and treated with IV fluid and Solu-Medrol and activity was changed to doxycycline patient did not start his medication yet. Patient was in by his primary care physician today related to his abscess. Review of Systems Review of Systems Constitutional: Denies fever or chills [] Eyes: Denies change in visual acuity, redness, or eye pain [] HENT: Denies nasal congestion or sore throat [] Respiratory: Denies cough or shortness of breath [] Cardiovascular: No additional information not addressed in HPI [] GI: Denies abdominal pain, nausea, vomiting, bloody stools or diarrhea [] : Denies dysuria or hematuria [] Musculoskeletal: Denies back pain or joint pain [] Integument: Denies rash or skin lesions, [] Neurologic: Denies headache, focal weakness or sensory changes [] Endocrine: Denies polyuria or polydipsia [] All other systems were reviewed and found to be within normal limits, except as documented in this note. Current Medications Current Medications Current Medications Medications (Trade) Dose Ordered Sig/Lionel Start Time Stop Time Status Last Admin Dose Admin Ceftriaxone Sodium 1 gm/ Sodium Chloride 50 ml @ 100 mls/hr 1X ONCE 04/14/17 15:45 04/14/17 16:14 Sodium Chloride 1,000 ml @ 1,000 mls/hr 1X ONCE 04/14/17 14:30 04/14/17 15:30 DC 04/14/17 14:38 1,000 MLS/HR Allergies Allergies Allergies Coded Allergies Type Severity Reaction Last Updated Verified amoxicillin Allergy Intermediate rash 03/31/16 No clavulanic acid Allergy Intermediate 02/24/14 No Penicillins Allergy Unknown 04/14/17 Yes sulfamethoxazole Allergy Unknown 04/14/17 Yes trimethoprim Allergy Unknown 04/14/17 Yes Physical Exam Physical Exam Constitutional: Well developed, well nourished, mild distress, non-toxic appearance. [] HENT: Normocephalic, atraumatic, bilateral external ears normal, oropharynx moist, no oral exudates, nose normal. [] Eyes: PERRLA, EOMI, conjunctiva normal, no discharge. [] Neck: Normal range of motion, no tenderness, supple, no stridor. [] Cardiovascular: Sinus tachycardia, no murmur [] Lungs & Thorax: Bilateral breath sounds clear to auscultation [] Abdomen: Bowel sounds normal, soft, no tenderness, no masses, no pulsatile masses. [] Skin: Warm, dry, no erythema, no rash, left subaxillary area with area of mild erythema and hardness without fluctuation or draining pus Back: No tenderness, no CVA tenderness. [] Extremities: No tenderness, no cyanosis, no clubbing, ROM intact, no edema. [] Neurologic: Alert and oriented X 3, normal motor function, normal sensory function, no focal deficits noted. [] Psychologic: Affect normal, judgement normal, mood normal. [] Current Patient Data Vital Signs Vital Signs Date Time Temp Pulse Resp B/P (MAP) Pulse Ox O2 Delivery O2 Flow Rate FiO2 04/14/17 13:50 99.1 117 22 100 Room Air Lab Results Laboratory Tests Test 04/14/17 14:15 04/14/17 14:30 Urine Opiates Screen Neg (NEG) Urine Methadone Screen Neg (NEG) Urine Barbiturates Neg (NEG) Urine Phencyclidine Screen Neg (NEG) Urine Amphetamine/Methamphetamine Neg (NEG) Urine Benzodiazepines Screen Neg (NEG) Urine Cocaine Screen Neg (NEG) Urine Cannabinoids Screen Neg (NEG) Urine Ethyl Alcohol Neg (NEG) White Blood Count 12.2 x10^3/uL (4.0-11.0) H Red Blood Count 5.13 x10^6/uL (4.30-5.70) Hemoglobin 15.0 g/dL (13.0-17.5) Hematocrit 45.1 % (39.0-53.0) Mean Corpuscular Volume 88 fL (79-100) Mean Corpuscular Hemoglobin 29 pg (25-35) Mean Corpuscular Hemoglobin Concent 33 g/dL (31-37) Red Cell Distribution Width 13.9 % (11.5-14.5) Platelet Count 329 x10^3/uL (140-400) Neutrophils (%) (Auto) 89 % (31-73) H Lymphocytes (%) (Auto) 8 % (24-48) L Monocytes (%) (Auto) 3 % (0-9) Eosinophils (%) (Auto) 0 % (0-3) Basophils (%) (Auto) 0 % (0-3) Neutrophils # (Auto) 10.8 x10^3uL (1.8-7.7) H Lymphocytes # (Auto) 0.9 x10^3/uL (1.0-4.8) L Monocytes # (Auto) 0.4 x10^3/uL (0.0-1.1) Eosinophils # (Auto) 0.0 x10^3/uL (0.0-0.7) Basophils # (Auto) 0.0 x10^3/uL (0.0-0.2) Sodium Level 143 mmol/L (136-145) Potassium Level 3.9 mmol/L (3.5-5.1) Chloride Level 106 mmol/L (98-107) Carbon Dioxide Level 26 mmol/L (21-32) Anion Gap 11 (6-14) Blood Urea Nitrogen 14 mg/dL (8-26) Creatinine 1.2 mg/dL (0.7-1.3) Estimated GFR (Cockcroft-Gault) 73.2 BUN/Creatinine Ratio 12 (6-20) Glucose Level 202 mg/dL (70-99) H Lactic Acid Level 1.9 mmol/L (0.4-2.0) Calcium Level 9.0 mg/dL (8.5-10.1) Total Bilirubin 0.2 mg/dL (0.2-1.0) Aspartate Amino Transferase (AST) 15 U/L (15-37) Alanine Aminotransferase (ALT) 32 U/L (16-63) Alkaline Phosphatase 81 U/L (46-116) Troponin I Quantitative < 0.017 ng/mL (0-0.055) Total Protein 7.7 g/dL (6.4-8.2) Albumin 3.9 g/dL (3.4-5.0) Albumin/Globulin Ratio 1.0 (1.0-1.7) EKG EKG EKG interpreted by me. EKG at 1403 showed heart rate of 119 with sinus tachycardia, left atrial abnormality, no ST and T wave abnormality[] Radiology/Procedures Radiology/Procedures [] Course & Med Decision Making Course & Med Decision Making Pertinent Labs reviewed. (See chart for details) Evaluation of patient in ER showed 26-year-old male patient presented to ER with complaining of palpitations without chest pain. Patient was afebrile and had heart rate of 120s at arrival to ER that gradually improved with IV fluids to 90s. Patient had negative lactic acid with white count of 12,000 and had dose of Solu-Medrol last night in this emergency room. Patient had blood sugar of 202 without history of diabetes and instructed to record his blood sugar and follow up with his primary care physician. Patient had the drain abscess in the axillary area 2 days ago without any opening incision or draining pus with 2 x 4 cm area of fibrotic pattern is to follow-up with his primary care physician regarding the size of that area. Patient treated with 1 g of Rocephin and instructed to start his doxycycline not taking Medrol dose pack. Dragon Disclaimer Dragon Disclaimer This electronic medical record was generated, in whole or in part, using a voice recognition dictation system. Departure Departure: Impression: Primary Impression: Palpitation Additional Impressions: Hyperglycemia Tobacco abuse counseling Cutaneous abscess of axilla Disposition: HOME, SELF-CARE (At 1625) Condition: IMPROVED Referrals: CHELSEA OLSON MD (PCP) Follow-up with your primary care physician in 2-3 days for evaluation of abscess and elevation of blood sugar Patient Instructions: Palpitations Additional Instructions: Continue doxycycline and apply moist warm pad on abscess area Check her blood sugar and follow with your primary care physician in 2 or 3 days Problem Qualifiers MOR ANGELES MD Apr 14, 2017 15:51
[2017-04-14] MEDS ORDERED: cefTRIAXone SODIUM 1 GM VIAL IV ONE (16:03)
[2017-04-14] MEDS ORDERED: IV NORMAL SALINE 50ML 50 ML ONE (16:03)
[2017-04-14 16:45] VITALS: BP 121/55
--- NOTE | 2017-04-14 16:46 | EKG ---
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
== END 2017-04-14 17:01 | disposition home or self-care (01) ==
LOC: ER 13:49
DX: R00.2 Palpitations (principal); R73.9 Hyperglycemia, unspecified; L02.412 Cutaneous abscess of left axilla; F41.9 Anxiety disorder, unspecified; F17.210 Nicotine dependence, cigarettes, uncomplicated; Z71.6 Tobacco abuse counseling; Z88.0 Allergy status to penicillin; Z88.1 Allergy status to other antibiotic agents
CPT/HCPCS: 36415; 80053; 80307; 83605; 84484; 85025; 93005; 96361; 96365; 99285; J0696; G0479; J7030

== ENCOUNTER 2017-11-03 22:30 | Emergency (ER) | payer BC ==
[~2017-11-03] VITALS: Ht 175.3 cm; Wt 106.6 kg
[2017-11-03 22:30] VITALS: BP 121/55
[~2017-11-03 22:30] MED LIST changes: +CLON0.5T11 PO; -CLON0.5T3 PO
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
[2017-11-03] MEDS ORDERED: FLUORESCEIN 1MG EYE STRIP. ONE (22:44)
[2017-11-03] MEDS ORDERED: TETRACAINE 0.5% OPHTH SOLUTION 4ML BOTTLE. ONE (22:44)
[2017-11-03] MEDS ORDERED: HYDROcodon/IBUPROFEN 7.5/200MG 1 TAB TABLET PO ONE (23:15)
[2017-11-03] MEDS ORDERED: FLUORESCEIN 1MG EYE STRIP. OD ONE (23:15)
[2017-11-03] MEDS ORDERED: TETRACAINE 0.5% OPHTH SOLUTION 4ML BOTTLE. OD ONE (23:15)
[2017-11-03] MEDS ORDERED: CYCLOPENTOLATE 1% OPTH SOLUTION 2ML BOTTLE. OD ONE (23:15)
[2017-11-03] MEDS ORDERED: OXYC-323 PO (23:34)
[2017-11-03] MEDS ORDERED: KETOROLAC TROMETHAMINE 0.5% OPHTH SOLUTION 3ML BOTTLE. OD ONE (23:45)
== END 2017-11-03 23:55 | disposition home or self-care (01) ==
LOC: ER 22:30
DX: H10.9 Unspecified conjunctivitis (principal); F41.9 Anxiety disorder, unspecified; F17.210 Nicotine dependence, cigarettes, uncomplicated; Z88.1 Allergy status to other antibiotic agents; Z88.0 Allergy status to penicillin
CPT/HCPCS: 99284

== ENCOUNTER 2017-12-06 23:12 | Emergency (ER) | payer OTHER, BC ==
[~2017-12-06] VITALS: Ht 175.3 cm; Wt 110.2 kg
[~2017-12-06 23:12] MED LIST changes: +OXYC-323 PO
[2017-12-06] MEDS ORDERED: PRED20TA PO (23:28)
[2017-12-06] MEDS ORDERED: DIPH25CA58 PO (23:28)
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
[2017-12-06] MEDS ORDERED: DEXAMETHASONE 4 MG TABLET PO ONE (23:30)
[2017-12-06] MEDS ORDERED: diphenhydrAMINE HCL 25 MG CAPSULE PO ONE (23:30)
[2017-12-06 23:34] VITALS: BP 136/80
== END 2017-12-06 23:35 | disposition home or self-care (01) ==
LOC: ER 23:12
DX: L29.9 Pruritus, unspecified (principal); J45.909 Unspecified asthma, uncomplicated; F41.9 Anxiety disorder, unspecified; F17.210 Nicotine dependence, cigarettes, uncomplicated; Z88.1 Allergy status to other antibiotic agents; Z88.0 Allergy status to penicillin; Z88.2 Allergy status to sulfonamides; V47.5XXA Car driver injured in collision with fixed or stationary object in traffic accident, initial encounter; Y93.I9 Activity, other involving external motion; Y92.488 Other paved roadways as the place of occurrence of the external cause; Y99.8 Other external cause status
CPT/HCPCS: 99283

== ENCOUNTER 2017-12-25 15:29 | Emergency (ER) | payer BC, OTHER ==
[~2017-12-25] VITALS: Ht 175.3 cm; Wt 104.3 kg
[~2017-12-25 15:29] MED LIST changes: +DIPH25CA58 PO
--- NOTE | 2017-12-25 15:54 | PHYS DOC ---
Past History Past Medical History: Anxiety Additional Past Medical Histor: Tachycardia for 3 years Past Surgical History: Appendectomy Smoking: Cigarettes, Less than 1pk/day Alcohol Use: None Drug Use: None Adult General Chief Complaint Chief Complaint: ABDOMINAL PAIN [facility] HPI 27-year-old male patient complaining of nausea and dry heaves with eating spicy and greasy foods for the last 6 months and right upper quadrant intermittent aching pain for the last 2 months that getting worse for the last 1 week. Patient complaining of intermittent episodes of diarrhea and constipation and states he gained weight. Patient states he did not follow up with his primary care physician for this pain but he thinks he has gallbladder problem because his girlfriend had the same symptoms with diagnose of gallstone. Patient denies using drugs and alcohol. Review of Systems Review of Systems Constitutional: Denies fever or chills [] Eyes: Denies change in visual acuity, redness, or eye pain [] HENT: Denies nasal congestion or sore throat [] Respiratory: Denies cough or shortness of breath [] Cardiovascular: No additional information not addressed in HPI [] GI: Reports abdominal pain, nausea, constipation and diarrhea [] : Denies dysuria or hematuria [] Musculoskeletal: Denies back pain or joint pain [] Integument: Denies rash or skin lesions [] Neurologic: Denies headache, focal weakness or sensory changes [] Endocrine: Denies polyuria or polydipsia [] All other systems were reviewed and found to be within normal limits, except as documented in this note. Allergies Allergies Allergies Coded Allergies Type Severity Reaction Last Updated Verified doxycycline Allergy Severe Hives 11/03/17 Yes amoxicillin Allergy Intermediate rash 03/31/16 No clavulanic acid Allergy Intermediate 02/24/14 No Penicillins Allergy Unknown 04/14/17 Yes sulfamethoxazole Allergy Unknown 04/14/17 Yes trimethoprim Allergy Unknown 04/14/17 Yes Physical Exam Physical Exam Constitutional: Well developed, well nourished, no acute distress, non-toxic appearance. [] HENT: Normocephalic, atraumatic, oropharynx moist, no oral exudates, nose normal. [] Eyes: PERRLA, EOMI, conjunctiva normal, no discharge. [] Neck: Normal range of motion, no tenderness, supple, no stridor. [] Cardiovascular:Heart rate regular rhythm, no murmur [] Lungs & Thorax: Bilateral breath sounds clear to auscultation [] Abdomen: Bowel sounds normal, soft, no tenderness, no masses, no pulsatile masses. [] Skin: Warm, dry, no erythema, no rash. [] Back: No tenderness, no CVA tenderness. [] Extremities: No tenderness, no cyanosis, no clubbing, ROM intact, no edema. [] Neurologic: Alert and oriented X 3, normal motor function, normal sensory function, no focal deficits noted. [] Psychologic: Affect anxious, judgement normal, mood normal. [] Current Patient Data Vital Signs Vital Signs Date Time Temp Pulse Resp B/P (MAP) Pulse Ox O2 Delivery O2 Flow Rate FiO2 12/25/17 15:37 98.5 92 18 98 Room Air EKG EKG [] Radiology/Procedures Radiology/Procedures [] Course & Med Decision Making Course & Med Decision Making Pertinent Labs reviewed. (See chart for details) Evaluation of patient in ER showed 27-year-old patient with frequent emergency room visits and complaining of chronic abdominal pain and nausea. Patient had unremarkable physical exam except for anxiety. Labs was unremarkable except for white count of 12,000. Patient had history of leukocytosis with white count of 22,000 2014 that gradually improved. Patient instructed to follow-up with his primary care physician regarding chronic problem evaluation. [] Dragon Disclaimer Dragon Disclaimer This electronic medical record was generated, in whole or in part, using a voice recognition dictation system. Departure Departure: Impression: Primary Impression: Abdominal pain Additional Impressions: Leukocytosis Anxiety Disposition: HOME, SELF-CARE (at 1645) Condition: STABLE Referrals: CHELSEA OLSON MD (PCP) Patient Instructions: Abdominal Pain Additional Instructions: Take [id number] Zantac or Prilosec Follow-up with your primary care physician in 3-5 days Return to ER if not getting better Problem Qualifiers MOR ANGELES MD Dec 25, 2017 15:54
[2017-12-25 16:17] LABS: BASO % 0 % (0-3); EOS # 0.5 x10^3/uL (0.0-0.7); EOS % 4 % (0-3); HEMATOCRIT 43.1 % (39.0-53.0); HEMOGLOBIN 14.2 g/dL (13.0-17.5); LYMPH # 3.9 x10^3/uL (1.0-4.8); LYMPH % 32 % (24-48); MEAN CORPUSCULAR HEMOGLOBIN 29 pg (25-35); MEAN CORPUSCULAR HGB CONC 33 g/dL (31-37); MEAN CORPUSCULAR VOLUME 88 fL (79-100); MONO % 8 % (0-9); NEUT # 6.6 x10^3uL (1.8-7.7); NEUT % 55 % (31-73); PLATELET COUNT 311 x10^3/uL (140-400); RED BLOOD COUNT 4.91 x10^6/uL (4.30-5.70); RED CELL DISTRIBUTION WIDTH 13.3 % (11.5-14.5)
[2017-12-25 16:27] LABS: BILIRUBIN,URINE NEG (NEG); CLARITY,URINE HAZY; COLOR,URINE YELLOW; GLUCOSE,URINE NEG (NEG); NITRITE,URINE NEG (NEG); UROBILINOGEN,URINE 0.2 mg/dL (0.2 mg/dL)
[2017-12-25 16:28] LABS: BACTERIA,URINE 0 /HPF (0-FEW); RBC,URINE OCC /HPF (0-2); SQUAMOUS EPITHELIAL CELL,UR FEW /LPF; WBC,URINE OCC /HPF (0-4)
[2017-12-25 16:31] LABS: BARBITURATES NEG (NEG); BENZODIAZEPINES NEG (NEG); CANNABINOIDS NEG (NEG); COCAINE NEG (NEG); METHADONE NEG (NEG); OPIATES NEG (NEG); PHENCYCLIDINE NEG (NEG)
[2017-12-25 16:32] LABS: ALBUMIN 3.8 g/dL (3.4-5.0); ALBUMIN/GLOBULIN RATIO 1.2 (1.0-1.7); CALCIUM 8.5 mg/dL (8.5-10.1); CREATININE 1.1 mg/dL (0.7-1.3); GFR 80.3; POTASSIUM 3.9 mmol/L (3.5-5.1); TOTAL BILIRUBIN 0.2 mg/dL (0.2-1.0)
[2017-12-25 16:32] LABS: AMPHETAMINE/METHAMPHETAMINE NEG (NEG)
[2017-12-25 16:56] VITALS: BP 126/64
== END 2017-12-25 16:57 | disposition home or self-care (01) ==
LOC: ER 15:29
DX: R10.11 Right upper quadrant pain (principal); G89.29 Other chronic pain; D72.829 Elevated white blood cell count, unspecified; F41.9 Anxiety disorder, unspecified; F17.210 Nicotine dependence, cigarettes, uncomplicated; K59.00 Constipation, unspecified; Z90.89 Acquired absence of other organs; Z88.1 Allergy status to other antibiotic agents; Z88.0 Allergy status to penicillin
CPT/HCPCS: 36415; 80053; 80307; 81001; 83690; 85025; 99284; G0479

== ENCOUNTER 2018-03-08 20:45 | Emergency (ER) | payer BC ==
[~2018-03-08] VITALS: Ht 175.3 cm; Wt 113.0 kg
--- NOTE | 2018-03-08 20:47 | ED.ADGEN ---
Past History Past Medical History: Anxiety Additional Past Medical Histor: Tachycardia for 3 years Past Surgical History: Appendectomy Smoking: Cigarettes, Less than 1pk/day Alcohol Use: None Drug Use: None Adult General Chief Complaint Chief Complaint ".. I ve been cough up green and ovalles.. and now brown stuff.. and had this sinus stuff... my girl friend has it too.. I been sick for over a week now..." HPI HPI Patient is a 27 year old male who presents with above hx and complaints chest pain with productive cough. Pt. is been exposed to girlfriend has similar type complaints. Patient does smoke. No recent travel. No history of immunosuppression. Patient states his chest rocha with deep cough. Patient also complaining of wheezing. Has not had a flu vaccination. Patient does have a history of multiple allergies to medications. Patient has taken his Zithromax in the past. Review of Systems Review of Systems Constitutional: Subjective history of fever or chills [] Eyes: Denies change in visual acuity, redness, or eye pain [] HENT: History of nasal congestion or sore throat [] Respiratory: History of cough and wheezing[] Cardiovascular: No additional information not addressed in HPI [] GI: Denies abdominal pain, nausea, vomiting, bloody stools or diarrhea [] : Denies dysuria or hematuria [] Musculoskeletal: Denies back pain or joint pain [] Integument: Denies rash or skin lesions [] Neurologic: Denies headache, focal weakness or sensory changes [] Endocrine: Denies polyuria or polydipsia [] All other systems were reviewed and found to be within normal limits, except as documented in this note. Family History Family History Noncontributory Current Medications Current Medications Current Medications Medications (Trade) Dose Ordered Sig/Lionel Start Time Stop Time Status Last Admin Dose Admin Albuterol Sulfate (Ventolin Hfa Inhaler) 2 puff 1X ONCE 03/08/18 21:30 03/08/18 21:31 DC 03/08/18 21:26 2 PUFF Prednisone (Prednisone) 50 mg 1X ONCE 03/08/18 21:30 03/08/18 21:31 DC 03/08/18 21:26 50 MG Allergies Allergies Allergies Coded Allergies Type Severity Reaction Last Updated Verified doxycycline Allergy Severe Hives 11/03/17 Yes amoxicillin Allergy Intermediate rash 11/21/16 No clavulanic acid Allergy Intermediate 02/24/14 No Penicillins Allergy Unknown 04/14/17 Yes sulfamethoxazole Allergy Unknown 04/14/17 Yes trimethoprim Allergy Unknown 04/14/17 Yes Physical Exam Physical Exam Constitutional: Well developed, well nourished, moderately acute distress, non- toxic appearance. [] HENT: Normocephalic, atraumatic, bilateral external ears normal, oropharynx injected moist, injected pharynx no oral exudates, nose swollen turbinates and tender sinuses with rhinorrhea.[] Eyes: PERRLA, EOMI, conjunctiva normal, no discharge. [] Neck: Normal range of motion, no tenderness, supple, no stridor. [] Cardiovascular:Heart rate regular rhythm, no murmur [] Lungs & Thorax: Bilateral breath sounds equal apex with scattered wheezing throughout on auscultation [] Abdomen: Bowel sounds normal, soft, no tenderness, no masses, no pulsatile masses. [] Skin: Warm, dry, no erythema, no rash. [] Back: No tenderness, no CVA tenderness. [] Extremities: No tenderness, no cyanosis, no clubbing, ROM intact, no edema. No cording noted. Neurologic: Alert and oriented X 3, normal motor function, normal sensory function, no focal deficits noted. [] Psychologic: Affect anxious, judgement normal, mood normal. [] Current Patient Data Vital Signs Vital Signs Date Time Temp Pulse Resp B/P (MAP) Pulse Ox O2 Delivery O2 Flow Rate FiO2 03/08/18 22:15 78 18 138/70 (92) 98 Room Air 03/08/18 20:59 99.3 Lab Results Laboratory Tests Test 03/08/18 21:04 Influenza Type A (Rapid) Negative (NEGATIVE) Influenza Type B (Rapid) Negative (NEGATIVE) Group A Streptococcus Rapid Negative (NEGATIVE) EKG EKG [] Radiology/Procedures Radiology/Procedures [] Course & Med Decision Making Course & Med Decision Making Pertinent Labs and Imaging studies reviewed. (See chart for details) Must stop smoking. Take prednisone 50 and his Zithromax 250 daily for 5 days. Use MDI 2 puffs 4 times a day. Follow-up primary care. Take Tylenol and ibuprofen for discomfort. Return if any concerns. Get flu vaccination when over this acute episode. Return must follow-up. [] Final Impression Final Impression 1. Upper respiratory infection 2. Bronchitis [] Dragon Disclaimer Dragon Disclaimer This electronic medical record was generated, in whole or in part, using a voice recognition dictation system. SHABANA TINSLEY MD Mar 08, 2018 20:47
[2018-03-08] MEDS ORDERED: predniSONE 10 MG TABLET PO ONE (21:30)
[2018-03-08] MEDS ORDERED: ALBUTEROL SULFATE 8GM INHALER. INH ONE (21:30)
[2018-03-08 21:41] LABS: INFLUENZA A PATIENT NEGATIVE (NEGATIVE); INFLUENZA B PATIENT NEGATIVE (NEGATIVE)
[2018-03-08] MEDS ORDERED: AZIT250T PO (22:05)
[2018-03-08] MEDS ORDERED: PRED50TA PO (22:05)
[2018-03-08 22:15] VITALS: BP 138/70
== END 2018-03-08 22:16 | disposition home or self-care (01) ==
LOC: ER 20:45
DX: J06.9 Acute upper respiratory infection, unspecified (principal); J40 Bronchitis, not specified as acute or chronic; F41.9 Anxiety disorder, unspecified; F17.210 Nicotine dependence, cigarettes, uncomplicated; Z88.1 Allergy status to other antibiotic agents; Z88.0 Allergy status to penicillin; Z88.2 Allergy status to sulfonamides
CPT/HCPCS: 87070; 87804; 87880; 94640; 99284; J7512; J7613

== ENCOUNTER 2019-02-23 21:18 | Emergency (ER) | payer BC ==
[~2019-02-23] VITALS: Ht 175.3 cm; Wt 113.0 kg
[~2019-02-23 21:18] MED LIST changes: +ALBU2.5V8 IH; -ALBU6.7H IH; +AZIT250T PO; -CLON0.5T11 PO; +CLON0.5T4 PO; +DOXY-96 PO; -DOXY100T9 PO; +HYDR-3165 PO; -HYDR-971 PO; -OXYC-323 PO; +OXYC1TAB15 PO; +PRED50TA PO
[2019-02-23] MEDS ORDERED: IV NORMAL SALINE 1,000ML 1,000 ML IV ONE (21:45)
[2019-02-23 22:03] LABS: BARBITURATES NEG (NEG); BENZODIAZEPINES NEG (NEG); CANNABINOIDS NEG (NEG); COCAINE NEG (NEG); METHADONE NEG (NEG); OPIATES NEG (NEG); PHENCYCLIDINE NEG (NEG)
[2019-02-23 22:04] LABS: AMPHETAMINE/METHAMPHETAMINE NEG (NEG)
[2019-02-23 22:05] LABS: BASO # 0.1 x10^3/uL (0.0-0.2); BASO % 1 % (0-3); EOS # 0.5 x10^3/uL (0.0-0.7); EOS % 3 % (0-3); HEMATOCRIT 42.8 % (39.0-53.0); HEMOGLOBIN 14.1 g/dL (13.0-17.5); LYMPH # 4.8 x10^3/uL (1.0-4.8); LYMPH % 34 % (24-48); MEAN CORPUSCULAR HEMOGLOBIN 29 pg (25-35); MEAN CORPUSCULAR HGB CONC 33 g/dL (31-37); MEAN CORPUSCULAR VOLUME 88 fL (79-100); MONO # 1.2 x10^3/uL (0.0-1.1); MONO % 9 % (0-9); NEUT # 7.4 x10^3uL (1.8-7.7); NEUT % 53 % (31-73); PLATELET COUNT 321 x10^3/uL (140-400); RED BLOOD COUNT 4.86 x10^6/uL (4.30-5.70); RED CELL DISTRIBUTION WIDTH 13.5 % (11.5-14.5)
[2019-02-23 22:09] LABS: BILIRUBIN,URINE NEG (NEG); CLARITY,URINE CLEAR; COLOR,URINE YELLOW; GLUCOSE,URINE NEG (NEG); NITRITE,URINE NEG (NEG); RBC,URINE RARE /HPF (0-2); UROBILINOGEN,URINE 0.2 mg/dL (0.2 mg/dL); WBC,URINE RARE /HPF (0-4)
--- NOTE | 2019-02-23 22:11 | PHYS DOC ---
Past History Past Medical History: Anxiety, Other Additional Past Medical Histor: Tachycardia for 3 years Past Surgical History: Appendectomy Smoking: Cigarettes, Less than 1pk/day Alcohol Use: None Drug Use: None Adult General Chief Complaint Chief Complaint: ABDOMINAL PAIN [facility] HPI 28-year-old male presents with lower abdominal pain. The patient started to have a cramping abdominal pain around 5 AM when he was getting ready for work. He went to work and the pain went away most of the day. After he got home in the evening, the pain came back worse than before. It starts in the right lower quadrant radiates across his lower abdomen. He admits to having increased uri nary frequency, but denies dysuria. He denies urethral discharge. The pain is moderate in intensity. He denies fever or chills. He's had no nausea, vomiting, or diarrhea. No history of hernias, but the patient does lift heavy objects every day for work. Review of Systems Review of Systems Constitutional: Denies fever or chills [] Eyes: Denies change in visual acuity, redness, or eye pain [] HENT: Denies nasal congestion or sore throat [] Respiratory: Denies cough or shortness of breath [] Cardiovascular: No additional information not addressed in HPI [] GI: Lower abdominal pain. Denies nausea, vomiting, bloody stools or diarrhea [] : Increased urinary frequency[] Musculoskeletal: Denies back pain or joint pain [] Integument: Denies rash or skin lesions [] Neurologic: Denies headache, focal weakness or sensory changes [] Endocrine: Denies polyuria or polydipsia [] All other systems were reviewed and found to be within normal limits, except as documented in this note. Current Medications Current Medications Current Medications Medications (Trade) Dose Ordered Sig/Lionel Start Time Stop Time Status Last Admin Dose Admin Sodium Chloride 1,000 ml @ 1,000 mls/hr 1X ONCE 02/23/19 21:45 02/23/19 22:44 02/23/19 21:54 1,000 MLS/HR Allergies Allergies Allergies Coded Allergies Type Severity Reaction Last Updated Verified doxycycline Allergy Severe Hives 11/03/17 Yes amoxicillin Allergy Intermediate rash 03/31/16 No clavulanic acid Allergy Intermediate 02/24/14 No Penicillins Allergy Unknown 04/14/17 Yes sulfamethoxazole Allergy Unknown 04/14/17 Yes trimethoprim Allergy Unknown 04/14/17 Yes Physical Exam Physical Exam Constitutional: Well developed, well nourished, no acute distress, non-toxic appearance. [] HENT: Normocephalic, atraumatic, bilateral external ears normal, oropharynx moist, no oral exudates, nose normal. [] Eyes: PERRLA, EOMI, conjunctiva normal, no discharge. [] Neck: Normal range of motion, no tenderness, supple, no stridor. [] Cardiovascular:Heart rate regular rhythm, no murmur [] Lungs & Thorax: Bilateral breath sounds clear to auscultation [] Abdomen: Bowel sounds normal, soft, right lower quadrant tenderness, no masses, no pulsatile masses. [] Skin: Warm, dry, no erythema, no rash. [] Back: No tenderness, no CVA tenderness. [] Extremities: No tenderness, no cyanosis, no clubbing, ROM intact, no edema. [] Neurologic: Alert and oriented X 3, normal motor function, normal sensory function, no focal deficits noted. [] Psychologic: Affect normal, judgement normal, mood normal. [] Current Patient Data Vital Signs Vital Signs Date Time Temp Pulse Resp B/P (MAP) Pulse Ox O2 Delivery O2 Flow Rate FiO2 02/23/19 21:25 99.2 73 18 100 Room Air Lab Results Laboratory Tests Test 02/23/19 21:25 02/23/19 21:50 Urine Opiates Screen Neg (NEG) Urine Methadone Screen Neg (NEG) Urine Barbiturates Neg (NEG) Urine Phencyclidine Screen Neg (NEG) Urine Amphetamine/Methamphetamine Neg (NEG) Urine Benzodiazepines Screen Neg (NEG) Urine Cocaine Screen Neg (NEG) Urine Cannabinoids Screen Neg (NEG) Urine Ethyl Alcohol Neg (NEG) White Blood Count 14.0 x10^3/uL (4.0-11.0) H Red Blood Count 4.86 x10^6/uL (4.30-5.70) Hemoglobin 14.1 g/dL (13.0-17.5) Hematocrit 42.8 % (39.0-53.0) Mean Corpuscular Volume 88 fL (79-100) Mean Corpuscular Hemoglobin 29 pg (25-35) Mean Corpuscular Hemoglobin Concent 33 g/dL (31-37) Red Cell Distribution Width 13.5 % (11.5-14.5) Platelet Count 321 x10^3/uL (140-400) Neutrophils (%) (Auto) 53 % (31-73) Lymphocytes (%) (Auto) 34 % (24-48) Monocytes (%) (Auto) 9 % (0-9) Eosinophils (%) (Auto) 3 % (0-3) Basophils (%) (Auto) 1 % (0-3) Neutrophils # (Auto) 7.4 x10^3uL (1.8-7.7) Lymphocytes # (Auto) 4.8 x10^3/uL (1.0-4.8) Monocytes # (Auto) 1.2 x10^3/uL (0.0-1.1) H Eosinophils # (Auto) 0.5 x10^3/uL (0.0-0.7) Basophils # (Auto) 0.1 x10^3/uL (0.0-0.2) EKG EKG [] Radiology/Procedures Radiology/Procedures [] Impressions: CT abdomen and pelvis with contrast PQRS statement: CT scans at this facility use dose reduction including either automated exposure control, iterative reconstructions, and /or weight based radiation dosing via mA and kV modification when appropriate to reduce radiation dose to as low as reasonably achievable. HISTORY: Right lower quadrant abdominal pain, nausea, vomiting. History of appendectomy. COMPARISON: CT abdomen and pelvis July 29, 2014. TECHNIQUE: Helical multiplanar reconstructed CT imaging abdomen and pelvis was acquired with 100 mL Omnipaque 300 intravenous contrast. Abdomen findings: Liver, gallbladder, spleen, pancreas, kidneys and adrenal glands are unremarkable. No obstruction or inflammatory changes of the GI tract. Appendectomy. No abdominal fluid or adenopathy. Lung bases and bones are unremarkable. Pelvis findings: Bladder, prostate, rectum and bones are unremarkable. No fluid or adenopathy. IMPRESSION: No acute process. Appendectomy. Electronically signed by: Alejandro Monsalve MD (02/23/2019 11:13 PM) [facility] DICTATED AND SIGNED BY: ALEJANDRO MONSALVE MD DATE: 02/23/19 2315 CC: SILVESTRE BENAVIDES DO; CHELSEA OLSON MD ~ Course & Med Decision Making Course & Med Decision Making Pertinent Labs and Imaging studies reviewed. (See chart for details) The patient's labs are unremarkable except for slightly elevated white count of 14. His urinalysis is negative for infection. His urine drug screen is negative his CT of the abdomen and pelvis is unremarkable. I'm not sure what's causing patient's discomfort. He could be coming down with a viral illness. This could also be musculoskeletal even though he cannot remember a particular inciting injury. I have advised ibuprofen and rest to see if this improves. He is stable for discharge at this time. [] Dragon Disclaimer Dragon Disclaimer This electronic medical record was generated, in whole or in part, using a voice recognition dictation system. Departure Departure: Impression: Primary Impression: Abdominal pain Disposition: HOME, SELF-CARE Condition: STABLE Referrals: CHELSEA OLSON MD (PCP) Patient Instructions: Abdominal Pain, [id number] Problem Qualifiers Primary Impression: Abdominal pain Abdominal location: right lower quadrant Qualified Codes: R10.31 - Right lower quadrant pain SILVESTRE BENAVIDES DO Feb 23, 2019 22:11
[2019-02-23] MEDS ORDERED: KETOROLAC 30 MG/ML VIAL. IVP ONE (22:15)
[2019-02-23 22:21] LABS: ALBUMIN 3.8 g/dL (3.4-5.0); ALBUMIN/GLOBULIN RATIO 1.1 (1.0-1.7); CALCIUM 8.5 mg/dL (8.5-10.1); CREATININE 0.9 mg/dL (0.7-1.3); GFR 100.5; POTASSIUM 3.8 mmol/L (3.5-5.1); TOTAL BILIRUBIN 0.2 mg/dL (0.2-1.0); TOTAL PROTEIN 7.2 g/dL (6.4-8.2)
[2019-02-23 22:25] LABS: BACTERIA,URINE 0 /HPF (0-FEW)
[2019-02-23] MEDS ORDERED: IOHEXOL 300 MG/ML 75 ML VIAL. IV ONE (22:45)
[2019-02-23] MEDS: clonazePAM 0.5 MG TABLET PO STA (23:04)
[2019-02-23] MEDS ORDERED: clonazePAM 1 MG TABLET ONE (23:05)
--- NOTE | 2019-02-23 23:16 | RAD ---
CT abdomen and pelvis with contrast PQRS statement: CT scans at this facility use dose reduction including either automated exposure control, iterative reconstructions, and /or weight based radiation dosing via mA and kV modification when appropriate to reduce radiation dose to as low as reasonably achievable. HISTORY: Right lower quadrant abdominal pain, nausea, vomiting. History of appendectomy. COMPARISON: CT abdomen and pelvis July 29, 2014. TECHNIQUE: Helical multiplanar reconstructed CT imaging abdomen and pelvis was acquired with 100 mL Omnipaque 300 intravenous contrast. Abdomen findings: Liver, gallbladder, spleen, pancreas, kidneys and adrenal glands are unremarkable. No obstruction or inflammatory changes of the GI tract. Appendectomy. No abdominal fluid or adenopathy. Lung bases and bones are unremarkable. Pelvis findings: Bladder, prostate, rectum and bones are unremarkable. No fluid or adenopathy. IMPRESSION: No acute process. Appendectomy. Electronically signed by: Lee Monsalve MD (02/23/2019 11:13 PM) [facility]
[2019-02-23 23:25] VITALS: BP 130/67
[2019-02-23] MEDS ORDERED: clonazePAM 1 MG TABLET PO PRN (23:30)
[2019-02-23] MEDS ORDERED: clonazePAM 1 MG TABLET PO ONE (23:45)
== END 2019-02-23 23:56 | disposition home or self-care (01) ==
LOC: ER 21:18
DX: R10.31 Right lower quadrant pain (principal); R35.0 Frequency of micturition; F17.210 Nicotine dependence, cigarettes, uncomplicated; Z90.89 Acquired absence of other organs; Z88.1 Allergy status to other antibiotic agents; Z88.0 Allergy status to penicillin; Z88.2 Allergy status to sulfonamides
CPT/HCPCS: 36415; 74177; 80053; 80307; 81001; 83690; 85025; 96374; 99285; J1885; Q9967; J7030

== ENCOUNTER 2019-08-21 05:34 | Emergency (ER) | payer SELFPAY ==
[~2019-08-21] VITALS: Ht 175.3 cm; Wt 119.6 kg
--- NOTE | 2019-08-21 06:08 | PHYS DOC ---
Past History Past Medical History: Anxiety, GERD, Other Additional Past Medical Histor: Tachycardia for 3 years (SHABANA TINSLEY MD) Past Surgical History: Appendectomy (SHABANA TINSLEY MD) Smoking: Cigarettes, Less than 1pk/day Alcohol Use: Rarely Drug Use: None (SHABANA TINSLEY MD) General Adult EDM: Chief Complaint: NAUSEA/VOMITING/DIARRHEA HPI: HPI: ".. I woke up with this really bad chest . and upper abd. pain.... I ve had so many work up for it... and been in the emergency a lot of times.. maybe it some bad grilled meat I had yesterday.. but I feel really weak and shake y... "..." Nausea.. vomiting.. and diarrhea. " Patient is a 28 year old male who presents with, epigastric and chest pain, reflux, weakness, and arthralgia. Pain mainly in right upper quadrant and epigastric area. Patient reportedly has been in emergency department multiple occasions for similar type presentations. Patient denies any injury while working at [employer]. Patient denies any recent travel outside of the [facility]. Patient any specific ill contacts. Patient did get a flu vaccination this season. Patient normally follows with Dr. Olson. Patient last evaluated emergency department on 03/27/2019 for abdomen pain. Pt. has had multiple ED visits for variety of complaints. Patient does smoke. (SHABANA TINSLEY MD) Review of Systems: Review of Systems: Constitutional: Subjective complaints fever or chills Eyes: Denies change in visual acuity HENT: Denies nasal congestion or sore throat Respiratory: Denies cough or shortness of breath Cardiovascular: Complains of epigastric and chest pain GI: Complains of epigastric abdominal pain, nausea,. Denies vomiting, bloody stools or diarrhea denies tarry stools. : Denies dysuria Musculoskeletal: Complains of left flank back pain. Complains of generalized myalgia arthralgia and malaise Integument: Denies rash Neurologic: Denies headache, focal weakness or sensory changes Endocrine: Denies polyuria or polydipsia Lymphatic: Denies swollen glands Psychiatric: Denies depression or anxiety (SHABANA TINSLEY MD) Heart Score: HEART Score for Chest Pain: HEART Score for Chest Pain Response (Comments) Value ECG Nonspecific Repolarizatio 1 Age < 45 0 Risk Factors 1 or 2 Risk Factors 1 Total 2 Risk Factors: Risk Factors: DM, Current or recent (<one month) smoker, HTN, HLP, family history of CAD, obesity. Risk Scores: Score 0 - 3: 2.5% MACE over next 6 weeks - Discharge Home Score 4 - 6: 20.3% MACE over next 6 weeks - Admit for Clinical Observation Score 7 - 10: 72.7% MACE over next 6 weeks - Early Invasive Strategies (SHABANA TINSLEY MD) Family History: Family History: Noncontributory to current presentation (SHABANA TINSLEY MD) Current Medications: Current Meds: See nursing for home meds (SHABANA TINSLEY MD) Allergies: Allergies: Allergies Coded Allergies Type Severity Reaction Last Updated Verified doxycycline Allergy Severe Hives 11/03/17 Yes amoxicillin Allergy Intermediate rash 03/31/16 No clavulanic acid Allergy Intermediate 02/24/14 No Penicillins Allergy Unknown 04/14/17 Yes sulfamethoxazole Allergy Unknown 04/14/17 Yes trimethoprim Allergy Unknown 04/14/17 Yes (SHABANA TINSLEY MD) Physical Exam: PE: Constitutional: Moderate acute distress, non-toxic appearance. [] HENT: Normocephalic, atraumatic, bilateral external ears normal, oropharynx moist, no oral exudates, nose normal. [] Eyes: PERRLA, EOMI, conjunctiva normal, no discharge. [] Neck: Normal range of motion, no tenderness, supple, no stridor. [] Cardiovascular: Tachycardia heart rate regular rhythm, no murmur [] Lungs & Thorax: Bilateral breath sounds equal apex on auscultation [] Abdomen: Bowel sounds normal, soft, epigastric and right upper quadrant t enderness, no masses, no pulsatile masses. Rebound to right upper quadrant. Patient declines rectal exam at this time. No history of tarry stools. Morbidly obese. Skin: Warm, dry, no erythema, no rash. Multiple tattoos. Back: No tenderness, no CVA tenderness. [] Extremities: No tenderness, no cyanosis, no clubbing, ROM intact, no edema. [] No appreciable cording in the legs Neurologic: Alert and oriented X 3, normal motor function, normal sensory function, no focal deficits noted. [] Psychologic: Affect anxious, judgement normal, mood normal. [] (SHABANA TINSLEY MD) Current Patient Data: Vital Signs: Vital Signs Date Time Temp Pulse Resp B/P (MAP) Pulse Ox O2 Delivery O2 Flow Rate FiO2 08/21/19 05:49 98.1 95 18 154/83 (106) 98 Room Air (SHABANA TINSLEY MD) EKG: EKG: My interpretation EKG shows a sinus rhythm at 92 bpm. Does have some bimodal P waves. Some nonspecific anterior lateral changes. But no findings of acute S JAH with contralateral changes. [] (SHABANA TINSLEY MD) Radiology/Procedures: Radiology/Procedures: [] (SHABANA TINSLEY MD) Impressions: EXAM: Frontal view of the chest, AP views of the abdomen in upright and supine positions. CLINICAL INDICATION: Abdominal pain COMPARISON: None. FINDINGS and IMPRESSION: The heart is not enlarged. Mediastinal and hilar contours are normal. No focal parenchymal airspace opacity. No pleural effusion or pneumothorax. No abnormal small or large bowel dilatation. Moderate colonic stool content. No abnormal soft tissue mass effect. No suspicious calcifications are seen. No free intraperitoneal gas. Electronically signed by: Bayron Rushing MD (08/21/2019 6:30 AM) [facility] DICTATED AND SIGNED BY: BAYRON RUSHING MD DATE: 08/21/19 06 CC: SILVESTRE BENAVIDES DO; SHABANA TINSLEY MD; CHELSEA OLSON MD ~ (SILVESTRE BENAVIDES DO) Course & Med Decision Making: Course & Med Decision Making Pertinent Labs and Imaging studies reviewed. (See chart for details) Labs and x-rays pending at shift change. Patient endorsed to Dr. Benavides at shift change. He will make disposition of patient. Impression: 1. Abdomen Pain [] (SHABANA TINSLEY MD) Course & Med Decision Making The patient is acute abdominal series shows moderate stool burden, but no other significant findings. His CBC showed a slightly elevated white count, but this appears to be typical for the patient based on his previous records. The patient has been feeling anxious I ordered 1 mg of Ativan p.o. His labs are unremarkable. He has had no further vomiting in the ED. He is stable for discharge at this time. (SILVESTRE BENAVIDES DO) Dragon Disclaimer: Dragon Disclaimer: This electronic medical record was generated, in whole or in part, using a voice recognition dictation system. (SHABANA TINSLEY MD) Departure Departure: Impression: Primary Impression: Nausea & vomiting Qualified Codes: R11.2 - Nausea with vomiting, unspecified Disposition: 01 HOME, SELF-CARE Condition: STABLE Referrals: CHELSEA OLSON MD (PCP) Patient Instructions: Nausea and Vomiting, [id number] Dragon Disclaimer This chart was dictated in whole or in part using Voice Recognition software in a busy, high-work load, and often noisy Emergency Department environment. It may contain unintended and wholly unrecognized errors or omissions. (SHABANA TINSLEY MD) SHABANA TINSLEY MD Aug 21, 2019 06:08 SILVESTRE BENAVIDES DO Aug 21, 2019 06:54
[2019-08-21 06:28] LABS: BASO # 0.1 x10^3/uL (0.0-0.2); BASO % 1 % (0-3); EOS # 0.5 x10^3/uL (0.0-0.7); EOS % 4 % (0-3); HEMATOCRIT 43.9 % (39.0-53.0); HEMOGLOBIN 14.6 g/dL (13.0-17.5); LYMPH # 5.7 x10^3/uL (1.0-4.8); LYMPH % 42 % (24-48); MEAN CORPUSCULAR HEMOGLOBIN 29 pg (25-35); MEAN CORPUSCULAR HGB CONC 33 g/dL (31-37); MEAN CORPUSCULAR VOLUME 87 fL (79-100); MONO # 1.4 x10^3/uL (0.0-1.1); MONO % 10 % (0-9); NEUT # 6.1 x10^3uL (1.8-7.7); NEUT % 44 % (31-73); PLATELET COUNT 343 x10^3/uL (140-400); RED BLOOD COUNT 5.04 x10^6/uL (4.30-5.70); RED CELL DISTRIBUTION WIDTH 13.5 % (11.5-14.5); WHITE BLOOD COUNT 13.8 x10^3/uL (4.0-11.0)
[2019-08-21] MEDS ORDERED: SUCRALFATE 1 GM TABLET. PO ONE (06:30)
[2019-08-21] MEDS ORDERED: MAGNESIUM HYDROXIDE 2,400 MG/30 ML ORAL.SUSP. PO ONE (06:30)
[2019-08-21] MEDS ORDERED: ACETAMINOPHEN 500 MG TABLET PO ONE (06:30)
[2019-08-21] MEDS ORDERED: IV RINGERS SOLUTION,LACTATED 1,000 ML IV SCH (06:30)
[2019-08-21] MEDS ORDERED: FAMOTIDINE 20 MG/2 ML VIAL IVP ONE (06:30)
[2019-08-21 06:31] LABS: ANION GAP 11 (6-14); BLOOD UREA NITROGEN 15 mg/dL (8-26); CALCIUM 8.3 mg/dL (8.5-10.1); CARBON DIOXIDE 27 mmol/L (21-32); CHLORIDE 102 mmol/L (98-107); GLUCOSE 118 mg/dL (70-99); POTASSIUM 3.5 mmol/L (3.5-5.1); SODIUM 140 mmol/L (136-145)
--- NOTE | 2019-08-21 06:32 | RAD ---
EXAM: Frontal view of the chest, AP views of the abdomen in upright and supine positions. CLINICAL INDICATION: Abdominal pain COMPARISON: None. FINDINGS and IMPRESSION: The heart is not enlarged. Mediastinal and hilar contours are normal. No focal parenchymal airspace opacity. No pleural effusion or pneumothorax. No abnormal small or large bowel dilatation. Moderate colonic stool content. No abnormal soft tissue mass effect. No suspicious calcifications are seen. No free intraperitoneal gas. Electronically signed by: Bayron Gold MD (08/21/2019 6:30 AM) RONLAD
[2019-08-21 06:38] LABS: CLARITY,URINE CLEAR; COLOR,URINE YELLOW
[2019-08-21 06:39] LABS: BACTERIA,URINE 0 /HPF (0-FEW); BILIRUBIN,URINE NEG (NEG); GLUCOSE,URINE NEG (NEG); NITRITE,URINE NEG (NEG); RBC,URINE OCC /HPF (0-2); SQUAMOUS EPITHELIAL CELL,UR OCC /LPF; UROBILINOGEN,URINE 0.2 mg/dL (0.2 mg/dL); WBC,URINE OCC /HPF (0-4)
[2019-08-21 06:43] LABS: ALBUMIN 3.9 g/dL (3.4-5.0); ALK PHOS 96 U/L (46-116); ALT (SGPT) 29 U/L (16-63); AMYLASE 48 U/L (25-115); AST (SGOT) 17 U/L (15-37); LIPASE 126 U/L (73-393); MAGNESIUM 2.1 mg/dL (1.8-2.4); TOTAL BILIRUBIN 0.1 mg/dL (0.2-1.0); TOTAL PROTEIN 7.4 g/dL (6.4-8.2)
[2019-08-21 06:44] VITALS: BP 121/62
[2019-08-21 06:49] LABS: INFLUENZA A PATIENT NEGATIVE (NEGATIVE); INFLUENZA B PATIENT NEGATIVE (NEGATIVE)
[2019-08-21 06:51] LABS: DIRECT BILIRUBIN < 0.1 mg/dL (0.0-0.2)
[2019-08-21] MEDS ORDERED: LORazepam 1 MG TABLET PO ONE (07:00)
[2019-08-21 07:03] LABS: BARBITURATES NEG (NEG); BENZODIAZEPINES NEG (NEG); CANNABINOIDS POS (NEG); COCAINE NEG (NEG); METHADONE NEG (NEG); OPIATES NEG (NEG); PHENCYCLIDINE NEG (NEG)
[2019-08-21 07:04] LABS: AMPHETAMINE/METHAMPHETAMINE NEG (NEG)
[2019-08-21 10:54] LABS: THYROID STIM HORMONE (TSH) 0.886 uIU/mL (0.358-3.740)
--- NOTE | 2019-08-21 13:57 | EKG ---
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
== END 2019-08-21 07:32 | disposition home or self-care (01) ==
LOC: ER 05:34
DX: R10.13 Epigastric pain (principal); R11.2 Nausea with vomiting, unspecified; D72.829 Elevated white blood cell count, unspecified; F41.9 Anxiety disorder, unspecified; K21.9 Gastro-esophageal reflux disease without esophagitis; F17.210 Nicotine dependence, cigarettes, uncomplicated; Z90.89 Acquired absence of other organs; Z88.0 Allergy status to penicillin; Z88.1 Allergy status to other antibiotic agents
CPT/HCPCS: 36415; 74022; 80048; 80061; 80076; 80307; 81001; 82150; 82550; 83690; 83735; 83880; 84443; 84484; 85025; 85379; 85610; 85730; 86705; 86709; 86803; 87070; 87340; 87804; 87880; 93005; 96361; 96374; 99285; J3490; J7120

== ENCOUNTER 2019-10-15 21:50 | Emergency (ER) | payer OTHER ==
[~2019-10-15] VITALS: Ht 175.3 cm; Wt 115.8 kg
--- NOTE | 2019-10-15 22:00 | PHYS DOC ---
Past History Past Medical History: Anxiety, Bronchitis, GERD, Other Additional Past Medical Histor: Tachycardia for 3 years Past Surgical History: Appendectomy Smoking: Cigarettes, Less than 1pk/day Alcohol Use: Rarely Drug Use: None General Adult EDM: Chief Complaint: CHEST PAIN HPI: HPI: "..I ve been having chest pain constant the last three days... it just right here..it is worse with deep breath and cough... I get worried about it...and getting COVID...' I get anxiety.. and I feel odd at times..." Patient is a 28 year old male who presents with above hx and complaints of chest pain. Is a 1 cm area just left of sternal border at anterior inter rib space four. Pain is reproducible on palpation. Pain is reproducible deep breaths and cough. Patient denies any productive sputum. 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 Patient does not smoke tobacco but does vape. No history of trauma or injury. Patient does have travel weekly to [facility]. No specific ill contacts. Patient does not do flu vaccination. There is family history of pulmonary nodule with his mother and his father has diabetes and a stroke at age 62. Patient normally follows with Dr. Olson. Pt. does have hx of anxiety and episodes of tachycardia. Pt. does snore when he sleeps. Review of Systems: Review of Systems: Constitutional: Denies fever or chills Eyes: Denies change in visual acuity HENT: Denies nasal congestion or sore throat Respiratory: Denies cough or shortness of breath Cardiovascular: Complaints of chest wall pain GI: Denies abdominal pain, nausea, vomiting, bloody stools or diarrhea : Denies dysuria Musculoskeletal: Denies back pain or joint pain Integument: Denies rash Neurologic: Denies headache, focal weakness or sensory changes Endocrine: Denies polyuria or polydipsia Lymphatic: Denies swollen glands Psychiatric: Denies depression or anxiety Heart Score: HEART Score for Chest Pain: HEART Score for Chest Pain Response (Comments) Value History Slighlty/Non-Suspicious 0 ECG Normal 0 Age < 45 0 Risk Factors 1 or 2 Risk Factors 1 Troponin < Normal Limit 0 Total 1 Risk Factors: Risk Factors: DM, Current or recent (<one month) smoker, HTN, HLP, family history of CAD, obesity. Risk Scores: Score 0 - 3: 2.5% MACE over next 6 weeks - Discharge Home Score 4 - 6: 20.3% MACE over next 6 weeks - Admit for Clinical Observation Score 7 - 10: 72.7% MACE over next 6 weeks - Early Invasive Strategies Family History: Family History: Diabetes with father and CVA age 62, mother has a pulmonary nodule Current Medications: Current Meds: See nursing for home meds Allergies: Allergies: Allergies Coded Allergies Type Severity Reaction Last Updated Verified doxycycline Allergy Severe Hives 11/03/17 Yes amoxicillin Allergy Intermediate rash 03/31/16 No clavulanic acid Allergy Intermediate 02/24/14 No Penicillins Allergy Unknown 04/14/17 Yes sulfamethoxazole Allergy Unknown 04/14/17 Yes trimethoprim Allergy Unknown 04/14/17 Yes Physical Exam: PE: Constitutional: , no acute distress, non-toxic appearance. [] HENT: Normocephalic, atraumatic, bilateral external ears normal, oropharynx moist, no oral exudates, nose normal. [] [place]. Eyes: PERRLA, EOMI, conjunctiva normal, no discharge. [] Neck: Normal range of motion, no tenderness, supple, no stridor. [] Neck size more than 17 inches circumference Cardiovascular:Heart rate regular rhythm, no murmur [] Lungs & Thorax: Bilateral breath sounds equal at apex with few scattered wheezes on auscultation []. Point chest wall tenderness at left sternal border Abdomen: Bowel sounds normal, soft, no tenderness, no masses, no pulsatile masses. Obese. Old surgery scars-appendectomy Skin: Warm, dry, no erythema, no rash. Multiple tattoos. Back: No tenderness, no CVA tenderness. [] Extremities: No tenderness, no cyanosis, no clubbing, ROM intact, no edema. No cording appreciated in the legs Neurologic: Alert and oriented X 3, normal motor function, normal sensory function, no focal deficits noted. [] Psychologic: Affect anxious, judgement normal, mood normal. [] EKG: EKG: My interpretation EKG shows a sinus rhythm at 80 bpm. No findings acute STEMI or other morphology [] Radiology/Procedures: Radiology/Procedures: [][address] [address] IMAGING REPORT Signed PATIENT: NACHO JEROME ACCOUNT: [id number] : 1990 LOCATION: ER AGE: 28 SEX: M EXAM STATUS: REG ER ORD. PHYSICIAN: SHABANA TINSLEY MD REASON: CHEST PAIN X 3 DAYS, WORSE X 1 HOUR. PROCEDURE: CHEST PA & LATERAL Exam: Chest 2 views INDICATION: Chest pain for 3 days TECHNIQUE: Frontal and lateral views the chest Comparisons: 01/25/2017 FINDINGS: The cardiomediastinal silhouette and pulmonary vessels are within normal limits. The lung and pleural spaces are clear. IMPRESSION: No acute cardiopulmonary process. Electronically signed by: Shar Hernandez MD (10/15/2019 10:44 PM) [id number] DICTATED AND SIGNED BY: SHAR HERNANDEZ MD DATE: 10/15/19 2244 CC: SHABANA TINSLEY MD; CHELSEA OLSON MD ~ Course & Med Decision Making: Course & Med Decision Making Pertinent Labs and Imaging studies reviewed. (See chart for details) Patient is to not smoke or vape. Patient take Tylenol and ibuprofen for pain. Patient follow-up primary care. Patient return if any concerns. Consider outpatient stress testing if continued discomfort. 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 Pt. to consider out pt. sleep apnea. [] Impression: 1,Chest Wall Pain 2.Hx. Anxiety Disorder 3. Mild Leukocytosis- 15.4- Viral Syndrome Graham 10 4. Elevation CK= 355 5. Normal Trop 0.017, Normal D-dimer 0.19 Dragon Disclaimer: Dragon Disclaimer: This electronic medical record was generated, in whole or in part, using a voice recognition dictation system. Departure Departure: Disposition: HOME/RESIDENCE PRIOR TO ADM Condition: STABLE Referrals: CHELSEA OLSON MD (PCP) Justification of Admission: Justification of Admission: Justification of Admission Dx: N/A Dragon Disclaimer This chart was dictated in whole or in part using Voice Recognition software in a busy, high-work load, and often noisy Emergency Department environment. It may contain unintended and wholly unrecognized errors or omissions. Dragon Disclaimer This chart was dictated in whole or in part using Voice Recognition software in a busy, high-work load, and often noisy Emergency Department environment. It may contain unintended and wholly unrecognized errors or omissions. SHABANA TINSLEY MD Oct 15, 2019 22:00
[2019-10-15] MEDS ORDERED: KETOROLAC 60 MG/2 ML VIAL. IM ONE (22:30)
[2019-10-15] MEDS ORDERED: IV RINGERS SOLUTION,LACTATED 1,000 ML IV SCH (22:30)
[2019-10-15] MEDS ORDERED: ASPIRIN CHEWABLE 81 MG TABLET. PO ONE (22:30)
[2019-10-15 22:42] LABS: BASO # 0.1 x10^3/uL (0.0-0.2); BASO % 1 % (0-3); EOS # 0.2 x10^3/uL (0.0-0.7); EOS % 1 % (0-3); HEMATOCRIT 41.6 % (39.0-53.0); HEMOGLOBIN 13.7 g/dL (13.0-17.5); LYMPH # 4.6 x10^3/uL (1.0-4.8); LYMPH % 31 % (24-48); MEAN CORPUSCULAR HEMOGLOBIN 29 pg (25-35); MEAN CORPUSCULAR HGB CONC 33 g/dL (31-37); MEAN CORPUSCULAR VOLUME 89 fL (79-100); MONO # 1.5 x10^3/uL (0.0-1.1); MONO % 10 % (0-9); NEUT # 8.6 x10^3uL (1.8-7.7); NEUT % 57 % (31-73); PLATELET COUNT 294 x10^3/uL (140-400); RED CELL DISTRIBUTION WIDTH 13.6 % (11.5-14.5)
[2019-10-15 22:47] LABS: BILIRUBIN,URINE NEG (NEG); CLARITY,URINE CLEAR; COLOR,URINE YELLOW; GLUCOSE,URINE NEG (NEG)
--- NOTE | 2019-10-15 22:47 | RAD ---
Exam: Chest 2 views INDICATION: Chest pain for 3 days TECHNIQUE: Frontal and lateral views the chest Comparisons: 01/25/2017 FINDINGS: The cardiomediastinal silhouette and pulmonary vessels are within normal limits. The lung and pleural spaces are clear. IMPRESSION: No acute cardiopulmonary process. Electronically signed by: Shar López MD (10/15/2019 10:44 PM) [id number]
[2019-10-15 22:48] LABS: NITRITE,URINE NEG (NEG); UROBILINOGEN,URINE 0.2 mg/dL (0.2 mg/dL)
[2019-10-15 22:49] LABS: BARBITURATES NEG (NEG); BENZODIAZEPINES NEG (NEG); CANNABINOIDS NEG (NEG); COCAINE NEG (NEG); METHADONE NEG (NEG); OPIATES NEG (NEG); PHENCYCLIDINE NEG (NEG)
[2019-10-15 22:50] LABS: CALCIUM 8.6 mg/dL (8.5-10.1); CREATININE 1.1 mg/dL (0.7-1.3); GFR 79.7; POTASSIUM 3.6 mmol/L (3.5-5.1)
[2019-10-15 22:50] LABS: WBC,URINE 0 /HPF (0-4)
[2019-10-15 22:51] LABS: BACTERIA,URINE FEW /HPF (0-FEW); SQUAMOUS EPITHELIAL CELL,UR FEW /LPF
[2019-10-15 23:03] LABS: DIRECT BILIRUBIN 0.1 mg/dL (0.0-0.2); MAGNESIUM 2.1 mg/dL (1.8-2.4); TOTAL BILIRUBIN 0.3 mg/dL (0.2-1.0); TOTAL PROTEIN 7.5 g/dL (6.4-8.2)
[2019-10-15 23:11] LABS: AMPHETAMINE/METHAMPHETAMINE NEG (NEG)
[2019-10-16 02:30] VITALS: BP 135/51
[2019-10-16 10:47] LABS: THYROID STIM HORMONE (TSH) 1.57 uIU/mL (0.358-3.740)
--- NOTE | 2019-10-17 07:19 | EKG ---
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
== END 2019-10-16 02:35 | disposition home or self-care (01) ==
LOC: ER 21:50
DX: R07.89 Other chest pain (principal); F41.9 Anxiety disorder, unspecified; D72.829 Elevated white blood cell count, unspecified; B34.9 Viral infection, unspecified; R79.89 Other specified abnormal findings of blood chemistry; R79.1 Abnormal coagulation profile; K21.9 Gastro-esophageal reflux disease without esophagitis; F17.210 Nicotine dependence, cigarettes, uncomplicated; Z88.1 Allergy status to other antibiotic agents; Z88.2 Allergy status to sulfonamides; Z88.8 Allergy status to other drugs, medicaments and biological substances
CPT/HCPCS: 36415; 71046; 80048; 80061; 80076; 80307; 81001; 82550; 83690; 83735; 83880; 84443; 84484; 85025; 85379; 85610; 85730; 93005; 96372; 99285; J1885; J7120

== ENCOUNTER 2020-01-23 19:43 | Emergency (ER) | payer OTHER ==
[~2020-01-23] VITALS: Ht 175.3 cm; Wt 115.8 kg
[2020-01-23 19:55] VITALS: BP 155/90
[2020-01-23] MEDS ORDERED: FLUT9.9S NS (20:42)
[2020-01-23] MEDS ORDERED: FEXO180T81 PO (20:42)
--- NOTE | 2020-01-23 20:43 | PHYS DOC ---
Past History Past Medical History: Anxiety, Bronchitis, GERD, Other Additional Past Medical Histor: Tachycardia for 3 years Past Surgical History: Appendectomy Smoking: Cigarettes, Less than 1pk/day Alcohol Use: None Drug Use: None General Adult EDM: Chief Complaint: COUGH HPI: HPI: The history was obtained from the patient. Patient is a 29-year-old male with PMH anxiety who presents with a chief complaint of congestion. Patient states he has had intermittent nasal congestion over the past year. He states he is had intermittent sneezing as well. He notes recently has had worsening congestion with a mild sore throat. Denies cough. States he checked his temper ature earlier today because he felt warm and noted to be 100.1. He has not tried medicine prior to arrival for his fever. He states he has tried Griselda with minimal relief. He notes today they noticed in his bedroom that he had mold surrounding his air conditioner. He is concerned regarding his mold exposure. Denies any chest pain or shortness of breath. Denies objective fev ers. Denies known exposure to coronavirus. Denies syncope. No other complaints. Review of Systems: Review of Systems: Constitutional: Denies fever or chills Eyes: Denies change in visual acuity HENT: Positive for nasal congestion and sore throat Respiratory: Denies cough or shortness of breath Cardiovascular: Denies chest pain or edema GI: Denies abdominal pain, nausea, vomiting, bloody stools or diarrhea : Denies dysuria Musculoskeletal: Denies back pain or joint pain Integument: Denies rash Neurologic: Denies headache, focal weakness or sensory changes Endocrine: Denies polyuria or polydipsia Lymphatic: Denies swollen glands Psychiatric: Denies depression or anxiety Heart Score: Risk Factors: Risk Factors: DM, Current or recent (<one month) smoker, HTN, HLP, family history of CAD, obesity. Risk Scores: Score 0 - 3: 2.5% MACE over next 6 weeks - Discharge Home Score 4 - 6: 20.3% MACE over next 6 weeks - Admit for Clinical Observation Score 7 - 10: 72.7% MACE over next 6 weeks - Early Invasive Strategies Allergies: Allergies: Allergies Coded Allergies Type Severity Reaction Last Updated Verified doxycycline Allergy Severe Hives 11/03/17 Yes amoxicillin Allergy Intermediate rash 03/31/16 No clavulanic acid Allergy Intermediate 02/24/14 No Penicillins Allergy Unknown 04/14/17 Yes sulfamethoxazole Allergy Unknown 04/14/17 Yes trimethoprim Allergy Unknown 04/14/17 Yes Physical Exam: PE: Constitutional: Well developed, well nourished, no acute distress, non-toxic appearance. [] HENT: Normocephalic, atraumatic, bilateral external ears normal, oropharynx moist, no oral exudates, nose normal. [] Eyes: PERRLA, EOMI, conjunctiva normal, no discharge. [] Neck: Normal range of motion, no tenderness, supple, no stridor. [] Cardiovascular:Heart rate regular rhythm, no murmur [] Lungs & Thorax: Bilateral breath sounds clear to auscultation [] Abdomen: Bowel sounds normal, soft, no tenderness, no masses, no pulsatile masses. [] Skin: Warm, dry, no erythema, no rash. [] Back: No tenderness, no CVA tenderness. [] Extremities: No tenderness, no cyanosis, no clubbing, ROM intact, no edema. [] Neurologic: Alert and oriented X 3, normal motor function, normal sensory function, no focal deficits noted. [] Psychologic: Affect normal, judgement normal, mood normal. [] EKG: EKG: [] Radiology/Procedures: Radiology/Procedures: [] Course & Med Decision Making: Course & Med Decision Making Pertinent Labs and Imaging studies reviewed. (See chart for details) [] Patient is well-appearing 29-year-old male who presents with chief complaint of congestion over the past year and sore throat with sneezing. Initial vital signs unremarkable. COVID swab obtained and pending. Patient is declining chest x-ray. His lungs are clear overall I feel this is reasonable. He is well-appearing and appropriate for discharge home. He will be discharged home with Griselda and Flonase. Return precautions discussed and understood. Instructed to follow-up with his primary care physician. Stable for discharge home. COVID-19 CRITERIA: The patient was evaluated during the global COVID-19 pandemic, and that diagnosis was suspected/considered upon their initial presentation. Their evaluation, treatment and testing was consistent with current guidelines for patients who present with complaints or symptoms that may be related to COVID-19. Dragon Disclaimer: Dragon Disclaimer: This electronic medical record was generated, in whole or in part, using a voice recognition dictation system. Departure Departure: Impression: Primary Impression: Nasal congestion Additional Impression: Sore throat Disposition: 01 HOME/RESIDENCE PRIOR TO ADM Condition: STABLE Referrals: CHELSEA OLSON MD (PCP) Additional Instructions: You have been tested for or diagnosed with COVID-19. It is an infection caused by a new type of coronavirus. COVID-19 will cause cold-like or mild flu symptoms in most. It can cause more severe symptoms like problems breathing in some. There is no treatment for COVID-19. The body will clear the infection over time. Self-care will help to ease discomfort. Steps to Take: Self-Care Rest as needed. Healthy habits may help you feel better. Steps include: Choose healthy foods including fruits and vegetables. Drink water throughout the day. Get plenty of sleep each night. If you smoke, try to quit. It may ease breathing. Avoid alcohol. Keep Others Healthy The virus can spread to others. Droplets are released every time you sneeze or cough. The droplets can get into the mouth, nose, or eyes of people near you and lead to infection. To lower the chances of spreading COVID-19 to others: Stay at home until your doctor has said it is safe to leave. If you tested positive this will mean staying isolated until both of the following are true: At least 7 days have passed since the start of illness. You are free of fever for at least 72 hours without the use of medicine. During this time: - Avoid public areas, events, or transportation. Do not return to work or school until your doctor has said it is safe to do so. - Call ahead if you need to go to a medical center. Let them know you may have COVID-19. It will help them guide you where to go. They may also ask you to wear a facemask when you come to the office. - If you call for emergency medical services, let them know you may have COVID- 19. While at home: - Try to avoid close contact with others. Stay about 6 feet away. - If possible, spend most of your time in a separate room from others. - Use a face mask if you will be in close contact with others such as sharing a room or vehicle. - Have someone wipe down common surfaces in the home. Use household general [employer] farm every day on areas like doorknobs, counters, or sinks. - Cough or sneeze into a tissue. Throw the tissue away right after use. If a tissue is not available, cough or sneeze into your elbow. - Wash your hands often. Wash them after sneezing or coughing. Use soap and water and wash for at least 20 seconds. Alcohol based hand spinneret cleaner can be used if soap and water is not available. - Do not prepare food for others. Avoid sharing personal items like forks, spoons, or toothbrushes. - Avoid close contact with pets while you are sick. There is no evidence of the virus passing to pets. This is a safety step until more is known about this virus. Isolation can be frustrating. Social interaction can help. Keep in touch with friends and family through phone and tech options. You can still interact with others in your home, just keep a safe distance of about 6 feet. Follow-up: Your doctors office will check in with you to see if there are any changes in your health. You may be asked to keep track of symptoms to share with them. They will also let you know when you are clear to be in public again. Problems to Look Out For: Contact your doctor if your recovery is not going as you expect. Get emergency care if you have problems such as: - Trouble breathing - Nonstop chest pain or pressure - Changes in awareness, confusion, or problems waking - Lips or face have bluish color - Worsening of symptoms If you think you have an emergency, call for emergency medical services right away. As taken from [facility] Fluticasone Propionate (Flonase Allergy Relief) 9.9 Ml [place].susp 2 SPRAYS NS DAILY for congestion for 30 Days, #1 BOTTLE Prov: BARRON BARRIGA DO 01/23/20 Fexofenadine Hcl (GRISELDA ALLERGY) 180 Mg Tablet 1 TAB PO DAILY for allergy symptoms for 14 Days, #14 TAB 0 Refills Prov: BARRON BARRIGA DO 01/23/20 Justification of Admission: Justification of Admission: Justification of Admission Dx: N/A BARRON BARRIGA DO Jan 23, 2020 20:42
--- NOTE | 2020-01-26 08:03 | NUR ---
IP: notified patient of COVID result, questions answered.
== END 2020-01-23 21:05 | disposition home or self-care (01) ==
LOC: ER 19:43
DX: R09.81 Nasal congestion (principal); J02.9 Acute pharyngitis, unspecified; K21.9 Gastro-esophageal reflux disease without esophagitis; F17.210 Nicotine dependence, cigarettes, uncomplicated; Z20.828 Contact with and (suspected) exposure to other viral communicable diseases; Z88.1 Allergy status to other antibiotic agents; Z88.0 Allergy status to penicillin; Z88.2 Allergy status to sulfonamides
CPT/HCPCS: 99283; U0003

== ENCOUNTER 2020-06-17 06:27 | Emergency (ER) | payer OTHER ==
[~2020-06-17] VITALS: Ht 175.3 cm; Wt 115.8 kg
[~2020-06-17 06:27] MED LIST changes: +FEXO180T81 PO; +FLUT9.9S NS
[2020-06-17] MEDS ORDERED: KETOROLAC 15 MG/ML VIAL. IVP ONE (06:45)
--- NOTE | 2020-06-17 06:45 | PHYS DOC ---
Past History Past Medical History: Anxiety, Bronchitis, GERD, Other Additional Past Medical Histor: Tachycardia for 3 years Past Surgical History: Appendectomy Smoking: Cigarettes, Less than 1pk/day Alcohol Use: None Drug Use: None General Adult EDM: Chief Complaint: ABDOMINAL PAIN HPI: HPI: Patient is a 20-year-old male coming in for 2-3 hours of right upper quadrant phan pain. Says the pain woke him from sleep. Patient "made" himself have 2 bowel movements did not improve the pain. No vomiting or diarrhea, no constipation. Not had this pain before. Described as a pressure-like it comes and goes. Denies he has tried has helped. Has a history of appendectomy 4 years ago. Has family history of gallbladder problems. Denies any changes with urination such as blood or frequency. Past medical history of anxiety and is taking clonazepam. No other past surgical history. No known sick contacts. Last ate [place] food about 12 hours prior to arrival. Review of Systems: Review of Systems: All other systems within normal limits except for as noted in the HPI Allergies: Allergies: Allergies Coded Allergies Type Severity Reaction Last Updated Verified doxycycline Allergy Severe Hives 11/03/17 Yes amoxicillin Allergy Intermediate rash 03/31/16 No clavulanic acid Allergy Intermediate 02/24/14 No Penicillins Allergy Unknown 04/14/17 Yes sulfamethoxazole Allergy Unknown 04/14/17 Yes trimethoprim Allergy Unknown 04/14/17 Yes Physical Exam: PE: Constitutional: Well developed, well nourished, no acute distress, non-toxic ap pearance. [] HENT: Normocephalic, atraumatic, bilateral external ears normal, nose normal. [] Eyes: PERRLA, conjunctiva normal, no discharge. [] Neck: No rigidity, supple, no stridor. [] Cardiovascular: Regular rate and rhythm, brisk cap refill [] Lungs & Thorax: Non labored symmetric respirations, no tachypnea or respiratory distress [] Abdomen: Soft, nondistended, positive Bulter sign, no guarding or rebound. Skin: Warm, dry, no erythema, no rash. [] Back: Unremarkable Extremities: No deformities, range of motion grossly intact, no lower extremity edema [] Neurologic: Alert and oriented X 3, no focal deficits noted. [] Psychologic: Affect normal, judgement normal, mood normal. [] EKG: EKG: [] Radiology/Procedures: Radiology/Procedures: PATIENT: NACHO JEROME ACCOUNT: [id number] : 1990 LOCATION: ER AGE: 29 SEX: M EXAM STATUS: REG ER ORD. PHYSICIAN: DANY SMITH MD REASON: RUQ pain PROCEDURE: CT ABD PELV W/ IV CONTRST ONLY Exam: CT abdomen/pelvis with intravenous contrast Indication: Right upper quadrant abdominal pain Comparison: CT abdomen pelvis 02/23/2019 Technique: Helical CT imaging performed of the abdomen and pelvis after the intravenous administration of intravenous contrast. Sagittal and coronal reformats were obtained. One or more of the following individualized dose reduction techniques were utilized for this examination: 1. Automated exposure control 2. Adjustment of the mA and/or kV according to patient size 3. Use of iterative reconstruction technique. Findings: Lower chest: Lung bases are clear. Heart is normal in size. Liver: Normal. . Gallbladder/Biliary Tree: Normal.No radiopaque cholelithiasis Pancreas: Normal. Spleen: Normal. Adrenal Glands: Normal. Kidneys/Ureters/Bladder: Normal. Reproductive Organs: Normal. Stomach, small bowel, and colon: Stomach, small bowel, colon are normal. The appendix is not well visualized. Vasculature: Abdominal aorta and inferior vena cava are normal. Lymph Nodes: No lymphadenopathy. Peritoneum and retroperitoneum: No free fluid or free air Bones: No acute abnormality. Impression: No acute abnormality in the abdomen or pelvis.[] Heart Score: Risk Factors: Risk Factors: DM, Current or recent (<one month) smoker, HTN, HLP, family history of CAD, obesity. Risk Scores: Score 0 - 3: 2.5% MACE over next 6 weeks - Discharge Home Score 4 - 6: 20.3% MACE over next 6 weeks - Admit for Clinical Observation Score 7 - 10: 72.7% MACE over next 6 weeks - Early Invasive Strategies Course & Med Decision Making: Course & Med Decision Making Pertinent Labs and Imaging studies reviewed. (See chart for details) [] Dragon Disclaimer: Dragon Disclaimer: This electronic medical record was generated, in whole or in part, using a voice recognition dictation system. Departure Departure: Impression: Primary Impression: Abdominal pain Disposition: 01 DC HOME SELF CARE/HOMELESS Condition: STABLE Referrals: CHELSEA OLSON MD (PCP) Patient Instructions: Diet for Gastroesophageal Reflux Disease, Adult DANY SMITH MD Jun 17, 2020 06:45
[2020-06-17] MEDS ORDERED: ONDANSETRON PF 4 MG/2 ML VIAL. ONE (06:56)
[2020-06-17] MEDS ORDERED: ONDANSETRON PF 4 MG/2 ML VIAL. IVP ONE (07:00)
[2020-06-17 07:03] LABS: BASO % 0 % (0-3); EOS # 0.2 x10^3/uL (0.0-0.7); EOS % 2 % (0-3); HEMATOCRIT 43.2 % (39.0-53.0); HEMOGLOBIN 14.1 g/dL (13.0-17.5); LYMPH # 3.3 x10^3/uL (1.0-4.8); LYMPH % 33 % (24-48); MEAN CORPUSCULAR HEMOGLOBIN 28 pg (25-35); MEAN CORPUSCULAR HGB CONC 33 g/dL (31-37); MEAN CORPUSCULAR VOLUME 87 fL (79-100); MONO # 0.9 x10^3/uL (0.0-1.1); MONO % 9 % (0-9); NEUT # 5.6 x10^3uL (1.8-7.7); NEUT % 55 % (31-73); PLATELET COUNT 331 x10^3/uL (140-400); RED BLOOD COUNT 4.97 x10^6/uL (4.30-5.70); RED CELL DISTRIBUTION WIDTH 13.4 % (11.5-14.5); WHITE BLOOD COUNT 10.1 x10^3/uL (4.0-11.0)
[2020-06-17 07:09] LABS: CALCIUM 8.3 mg/dL (8.5-10.1); GFR 88.3; POTASSIUM 3.9 mmol/L (3.5-5.1)
[2020-06-17 07:15] LABS: ALBUMIN 3.8 g/dL (3.4-5.0); ALBUMIN/GLOBULIN RATIO 1.1 (1.0-1.7); TOTAL BILIRUBIN 0.4 mg/dL (0.2-1.0); TOTAL PROTEIN 7.4 g/dL (6.4-8.2)
[2020-06-17 07:38] LABS: CLARITY,URINE CLEAR; COLOR,URINE YELLOW
[2020-06-17 07:39] LABS: BACTERIA,URINE 0 /HPF (0-FEW); BILIRUBIN,URINE NEG (NEG); GLUCOSE,URINE NEG (NEG); NITRITE,URINE NEG (NEG); SQUAMOUS EPITHELIAL CELL,UR OCC /LPF; UROBILINOGEN,URINE 0.2 mg/dL (0.2 mg/dL)
[2020-06-17] MEDS ORDERED: IOHEXOL 300 MG/ML 75 ML VIAL. IV ONE (08:00)
--- NOTE | 2020-06-17 08:23 | RAD ---
Exam: CT abdomen/pelvis with intravenous contrast Indication: Right upper quadrant abdominal pain Comparison: CT abdomen pelvis 02/23/2019 Technique: Helical CT imaging performed of the abdomen and pelvis after the intravenous administratio n of intravenous contrast. Sagittal and coronal reformats were obtained. One or more of the following individualized dose reduction techniques were utilized for this examinat ion: 1. Automated exposure control 2. Adjustment of the mA and/or kV according to patient size 3. Use of iterative reconstruction technique. Findings: Lower chest: Lung bases are clear. Heart is normal in size. Liver: Normal. . Gallbladder/Biliary Tree: Normal.No radiopaque cholelithiasis Pancreas: Normal. Spleen: Normal. Adrenal Glands: Normal. Kidneys/Ureters/Bladder: Normal. Reproductive Organs: Normal. Stomach, small bowel, and colon: Stomach, small bowel, colon are normal. The appendix is not well vis ualized. Vasculature: Abdominal aorta and inferior vena cava are normal. Lymph Nodes: No lymphadenopathy. Peritoneum and retroperitoneum: No free fluid or free air Bones: No acute abnormality. Impression: No acute abnormality in the abdomen or pelvis. Electronically signed by: Selina Fox MD (06/17/2020 8:20 AM) [id number]
== END 2020-06-17 08:43 | disposition home or self-care (01) ==
LOC: ER 06:27
DX: R10.11 Right upper quadrant pain (principal); K21.9 Gastro-esophageal reflux disease without esophagitis; F17.210 Nicotine dependence, cigarettes, uncomplicated; Z90.89 Acquired absence of other organs; Z88.1 Allergy status to other antibiotic agents; Z88.0 Allergy status to penicillin; Z88.2 Allergy status to sulfonamides
CPT/HCPCS: 36415; 74177; 80053; 81001; 83690; 85025; 96374; 96375; 99284; J1885; J2405; Q9967

== ENCOUNTER 2020-07-13 01:44 | Emergency (ER) | payer OTHER ==
[~2020-07-13] VITALS: Ht 175.3 cm; Wt 115.8 kg
--- NOTE | 2020-07-13 01:46 | PHYS DOC ---
Past History Past Medical History: Anxiety, Bronchitis, GERD, Other Additional Past Medical Histor: Tachycardia for 3 years Past Surgical History: Appendectomy Smoking: Cigarettes, Less than 1pk/day Alcohol Use: None Drug Use: None General Adult HPI: HPI: ". I dropped a battery on my Lt. foot.. it hurts really bad...." Patient is a 29 year old male who presents with above hx and complaints of contusion injury to Lt. foot. Pt. complaints localized more Lt. lst toe. . Patient did drive himself here. Patient distal capillary refill refill less than 2 seconds. Does have swelling, erythema and pain in left first toe. Patient states his pain is severe he rates it 9 out of 10. Movement and weightb earing exacerbates pain. Patient denies any recent travel or severe ill contacts. Patient denies any immunosuppression. Patient does have a past medical history of anxiety, bronchitis, and obesity. Review of Systems: Review of Systems: Constitutional: Denies fever or chills Eyes: Denies change in visual acuity HENT: Denies nasal congestion or sore throat Respiratory: Denies cough or shortness of breath Cardiovascular: Denies chest pain or edema GI: Denies abdominal pain, nausea, vomiting, bloody stools or diarrhea : Denies dysuria Musculoskeletal: Complaints of left first toe and foot injury Integument: Denies rash Neurologic: Denies headache, focal weakness or sensory changes Endocrine: Denies polyuria or polydipsia Lymphatic: Denies swollen glands Psychiatric: Denies depression or anxiety Family History: Family History: Noncontributory to presentation Current Medications: Current Meds: See nursing for home meds Allergies: Allergies: Allergies Coded Allergies Type Severity Reaction Last Updated Verified doxycycline Allergy Severe Hives 11/03/17 Yes amoxicillin Allergy Intermediate rash 03/31/16 No clavulanic acid Allergy Intermediate 02/24/14 No Penicillins Allergy Unknown 04/14/17 Yes sulfamethoxazole Allergy Unknown 04/14/17 Yes trimethoprim Allergy Unknown 04/14/17 Yes Physical Exam: PE: Constitutional: in acute distress, non-toxic appearance. [] HENT: Normocephalic, atraumatic, bilateral external ears normal, oropharynx moist, no oral exudates, nose normal. [] Eyes: PERRLA, EOMI, conjunctiva normal, no discharge. [] Neck: Normal range of motion, no tenderness, supple, no stridor. [] Cardiovascular:Heart rate regular rhythm, no murmur [] Lungs & Thorax: Bilateral breath sounds equal apex with scattered wheezes on auscultation [] Abdomen: Bowel sounds normal, soft, no tenderness, no masses, no pulsatile masses. [] Skin: Warm, dry, no erythema, no rash. [] Back: No tenderness, no CVA tenderness. [] Extremities: No tenderness, no cyanosis, no clubbing, ROM intact, no edema. Except findings in left first toe as per HPI PI. Neurologic: Alert and oriented X 3, normal motor function, normal sensory function, no focal deficits noted. [] Psychologic: Affect normal, judgement normal, mood normal. [] EKG: EKG: [] Radiology/Procedures: Radiology/Procedures: [][id number] IMAGING REPORT Signed PATIENT: NACHO JEROME ACCOUNT: [id number] : 1990 LOCATION: ER AGE: 29 SEX: M EXAM STATUS: DEP ER ORD. PHYSICIAN: SHABANA TINSLEY MD REASON: pain, drop battery PROCEDURE: FOOT LEFT 3V EXAM: LEFT FOOT 3 VIEWS. HISTORY: Pain after crush injury COMPARISON: None. FINDINGS: Three views of the left foot are obtained. No fractures are identified. Alignment is normal. Joint spaces are maintained. IMPRESSION: 1. No fracture. Electronically signed by: Sina Stokes MD (07/13/2020 4:21 AM) [facility] DICTATED AND SIGNED BY: EPHRAIM STOKES MD DATE: 07/13/20 0420 CC: SHABANA TINSLEY MD; [facility] Heart Score: Risk Factors: Risk Factors: DM, Current or recent (<one month) smoker, HTN, HLP, family history of CAD, obesity. Risk Scores: Score 0 - 3: 2.5% MACE over next 6 weeks - Discharge Home Score 4 - 6: 20.3% MACE over next 6 weeks - Admit for Clinical Observation Score 7 - 10: 72.7% MACE over next 6 weeks - Early Invasive Strategies Course & Med Decision Making: Course & Med Decision Making Pertinent Labs and Imaging studies reviewed. (See chart for details) Patient use ice packs as needed. Patient elevate foot. Patient follow-up primary care. Patient take Tylenol and ibuprofen for pain. If continued pain consider libby-ray in 2 weeks. Return if any concerns. For marked pain may take Vicoprofen up to every 6 hours. Impression: 1. Crush injury first toe left [] Dragon Disclaimer: Dragon Disclaimer: This electronic medical record was generated, in whole or in part, using a voice recognition dictation system. Departure Departure: Referrals: CHELSEA OLSON MD (PCP) Scripts Hydrocodone/Ibuprofen (HYDROCODONE-IBUPROFEN 7.5-200 ) 1 Each Tablet 1 TAB PO PRN Q6HRS PRN for PAIN, #30 TAB 0 Refills Prov: SHABANA TINSLEY MD 07/13/20 Rosey Disclaimer This chart was dictated in whole or in part using Voice Recognition software in a busy, high-work load, and often noisy Emergency Department environment. It may contain unintended and wholly unrecognized errors or omissions. SHABANA TINSLEY MD Jul 13, 2020 01:46
[2020-07-13 01:56] VITALS: BP 138/83
[2020-07-13] MEDS ORDERED: KETOROLAC 60 MG/2 ML VIAL. IM ONE (02:00)
[2020-07-13] MEDS ORDERED: KETOROLAC 30 MG/ML VIAL. ONE (02:10)
[2020-07-13] MEDS ORDERED: MAGNESIUM HYDROXIDE 2,400 MG/30 ML ORAL.SUSP. PO ONE (03:00)
[2020-07-13] MEDS ORDERED: HYDR-1179 PO (03:09)
--- NOTE | 2020-07-13 04:23 | RAD ---
EXAM: LEFT FOOT 3 VIEWS. HISTORY: Pain after crush injury COMPARISON: None. FINDINGS: Three views of the left foot are obtained. No fractures are identified. Alignment is normal. Joint spaces are maintained. IMPRESSION: 1. No fracture. Electronically signed by: Sina Stokes MD (07/13/2020 4:21 AM) [facility]
== END 2020-07-13 03:39 | disposition home or self-care (01) ==
LOC: ER 01:44
DX: S90.112A Contusion of left great toe without damage to nail, initial encounter (principal); R60.0 Localized edema; L53.9 Erythematous condition, unspecified; F41.9 Anxiety disorder, unspecified; K21.9 Gastro-esophageal reflux disease without esophagitis; J42 Unspecified chronic bronchitis; F17.210 Nicotine dependence, cigarettes, uncomplicated; Z90.89 Acquired absence of other organs; Z88.1 Allergy status to other antibiotic agents; Z88.0 Allergy status to penicillin; Z88.2 Allergy status to sulfonamides; Z88.8 Allergy status to other drugs, medicaments and biological substances; X58.XXXA Exposure to other specified factors, initial encounter; Y93.89 Activity, other specified; Y92.89 Other specified places as the place of occurrence of the external cause; Y99.8 Other external cause status
CPT/HCPCS: 73630; 96372; 99283; J1885; 99282

== ENCOUNTER 2020-07-15 20:50 | Emergency (ER) | payer OTHER ==
[~2020-07-15] VITALS: Ht 175.3 cm; Wt 115.8 kg
[~2020-07-15 20:50] MED LIST changes: +HYDR-1179 PO
[2020-07-15 21:02] VITALS: BP 134/89
--- NOTE | 2020-07-15 21:16 | PHYS DOC ---
Past History Past Medical History: Anxiety, Bronchitis, GERD, Other Additional Past Medical Histor: Tachycardia for 3 years (RATNA THAKUR APRN) Past Surgical History: Appendectomy (RATNA THAKUR APRN) Smoking: Cigarettes, Less than 1pk/day Alcohol Use: None Drug Use: None (RATNA THAKUR APRN) Adult General Chief Complaint Chief Complaint: FOOT INJURY PAIN HPI HPI Patient is a 29-year-old male presents emergency department complaining of blood underneath his left great toe with pressure feeling. Patient states he was seen here last Thursday after he dropped a battery on his left great toe, had an x-ray done that was read negative, was sent home with a prescription for Vicoprofen. Patient states that he noticed blood collecting underneath his great toenail and a lot of pressure with pain now a 9/10 on a 1-10 pain scale. Patient denies any other physical complaints or physical injuries. Patient denies any recent fever or chills, patient denies chest pain, shortness of breath, nausea, vomiting, diarrhea, numbness or tingling to his extremities, chest congestion or nasal congestion, denies rashes to his skin. (RATNA THAKUR APRN) Review of Systems Review of Systems 14 body systems of review of systems have been reviewed. See HPI for pertinent positives and negative responses, otherwise all other systems are negative, nonpertinent or noncontributory. (RATNA THAKUR APRN) Allergies Allergies Allergies Coded Allergies Type Severity Reaction Last Updated Verified doxycycline Allergy Severe Hives 07/13/20 Yes amoxicillin Allergy Intermediate rash 07/13/20 No clavulanic acid Allergy Intermediate 07/13/20 No Penicillins Allergy Unknown 07/13/20 Yes sulfamethoxazole Allergy Unknown 07/13/20 Yes trimethoprim Allergy Unknown 07/13/20 Yes (RATNA THAKUR APRN) Physical Exam Physical Exam Constitutional: Well developed, well nourished, no acute distress, non-toxic appearance. HENT: Normocephalic, atraumatic, bilateral external ears normal, oropharynx moist, no oral exudates, nose normal. Eyes: PERRLA, EOMI, conjunctiva normal, no discharge. Neck: Normal range of motion, no tenderness, supple, no stridor. Cardiovascular:Heart rate regular rhythm, no murmur, heart sounds S1-S2 aus cultation Lungs & Thorax: Bilateral breath sounds clear to auscultation all lung ackerman Abdomen: Bowel sounds normal, soft, no tenderness, no masses, no pulsatile masses. Skin: Warm, dry, no erythema, no rash. Back: No tenderness, no CVA tenderness. Extremities: No tenderness, no cyanosis, no clubbing, ROM intact, no edema. Except for left great toenail, has darkened blood collection underneath without purulent drainage or bloody drainage. Erythema around nailbed, most distal cap refill less than 2 seconds per patient able to tolerate passive range of motion of the great toe, however patient does say it does hurt to move it because of the pressure. Neurologic: Alert and oriented X 3, normal motor function, normal sensory function, no focal deficits noted. Psychologic: Affect normal, judgement normal, mood normal. (RATNA THAKUR APRN) Current Patient Data Vital Signs Vital Signs Date Time Temp Pulse Resp B/P (MAP) Pulse Ox O2 Delivery O2 Flow Rate FiO2 07/15/20 21:02 97.8 98 16 134/89 (104) 98 Room Air (RATNA THAKUR APRN) EKG EKG [] (RATNA THAKUR APRN) Radiology/Procedures Radiology/Procedures [] (RATNA THAKUR APRN) Heart Score C/O Chest Pain: No Risk Factors: Risk Factors: DM, Current or recent (<one month) smoker, HTN, HLP, family history of CAD, obesity. Risk Scores: Risk Factors: DM, Current or recent (<one month) smoker, HTN, HLP, family his tory of CAD, obesity. (RATNA THAKUR APRN) Course & Med Decision Making Course & Med Decision Making Pertinent Labs and Imaging studies reviewed. (See chart for details) 29-year-old male, vital signs reviewed, presents emergency department concerning of blood underneath his left great toenail with pressure. Physical examination was consistent with subungual hematoma. Discussed with patient need to obtain an access for blood to drain through top of toenail, either using drill, needle, or pen cautery. Patient gave verbal understanding of need for this procedure. Procedure note: Prepped left great toenail with Betadine solution. Used pen cautery to burn hole in center of left great toenail. Approximately 3 cc of dark blood drained from access hole. Patient tolerated procedure well. Considered antibiotic treatment for patient, however patient allergic to many broad-spectrum antibiotics. Will prescribe mupirocin ointment, discussed with patient soaking foot in warm soapy water 3 times a day, strict follow-up with his primary care physician tomorrow. Patient gave verbal understanding of discharge home instructions, follow-up tomorrow with primary care physician, soak foot in soapy water 3 times a day, use of mupirocin ointment prescription, return ER precautions or concerns, discharged home. (RATNA THAKUR APRN) Course & Med Decision Making Did not see or evaluate patient. Agree with YOU[employer]RECTIONS OFFICER's work-up and disposition per note. (NUHA GARCIA MD) Dragon Disclaimer Dragon Disclaimer This electronic medical record was generated, in whole or in part, using a voice recognition dictation system. (RATNA THAKUR APRN) Departure Departure: Impression: Primary Impression: Subungual hematoma of great toe of left foot Disposition: 01 DC HOME SELF CARE/HOMELESS Condition: GOOD Referrals: CHELSEA OLSON MD (PCP) Additional Instructions: Please use antibiotic ointment as we discussed, please soak your toe in soapy warm water as we discussed, follow-up with Dr. Olson tomorrow. Return to the emergency department for worsening symptoms or other concerns. EMERGENCY DEPARTMENT GENERAL DISCHARGE INSTRUCTIONS Thank you for coming to [facility] (ED) today and trusting us with you care. We trust that you had a positivie experience in our Emergency Department. If you wish to speak to the department management, you may call the director at [phone]. YOUR FOLLOW UP INSTRUCTIONS ARE FOLLOWS: 1. Do you have a private Doctor? If you do not have a private doctor, please ask for a resource list of physicians or clinics that may be able to assist you with follow up care. 2. The Emergency Physician has interpreted your x-rays. The X-Ray specialist will also review them. If there is a change in the findings, you will be notified in 48 hours when at all possible. 3. A lab test or culture has been done, your results will be reviewed and you will be notified if you need a change in treatment. ADDITIONAL INSTRUCTIONS AND INFORMATION: 1. Your care today has been supervised by a physician who is specially trained in emergency care. Many problems require more than one evaluation for a complete diagnosis and treatment. We recommend that you schedule your follow up appointment as recommended to ensure complete treatment of you illness or injury. If you are unable to obtain follow up care and continue to have a problem, or if your condition worsens, we recommend that you return to the ED. 2. We are not able to safely determine your condition over the phone nor are we able to give sound medical advice over the phone. For these safety reasons, if you call for medical advice we will ask you to come to the ED for further evaluation. 3. If you have any questions regarding these discharge instructions please call the ED at [phone]. SAFETY INFORMATION: In the interest of safety, wellness, and injury prevention; we encourage you to wear your sealbelt, if you smoke; quite smoking, and we encourage family to use a protective helmet for bicycling and other sporting events that present an increased risk for head injury. IF YOUR SYMPTOMS WORSEN OR NEW SYMPTOMS DEVELOP, OR YOU HAVE CONCERNS ABOUT YOUR CONDITION; OR IF YOUR CONDITION WORSENS WHILE YOU ARE WAITING FOR YOUR FOLLOW UP APPOINTMENT; EITHER CONTACT YOUR PRIMARY CARE DOCTOR, THE PHYSICIAN WHOSE NAME AND NUMBER YOU WERE GIVEN, OR RETURN TO THE ED IMMEDIATELY. Scripts Mupirocin (MUPIROCIN) 22 Gm Oint...g. 1 ESTEBAN TP TID for TOE INFECTION, #22 GM 0 Refills Prov: RATNA THAKUR APRN 07/15/20 Problem Qualifiers Primary Impression: Subungual hematoma of great toe of left foot Encounter type: initial encounter Qualified Codes: S90.212A - Contusion of left great toe with damage to nail, initial encounter RATNA THAKUR APRN Jul 15, 2020 21:16 NUHA GARCIA MD Jul 16, 2020 00:12
[2020-07-15] MEDS ORDERED: MUPI22OI2 TP (21:43)
== END 2020-07-15 21:48 | disposition home or self-care (01) ==
LOC: ER 20:50
DX: S90.212A Contusion of left great toe with damage to nail, initial encounter (principal); F41.9 Anxiety disorder, unspecified; K21.9 Gastro-esophageal reflux disease without esophagitis; F17.210 Nicotine dependence, cigarettes, uncomplicated; Z88.1 Allergy status to other antibiotic agents; Z88.0 Allergy status to penicillin; Z88.2 Allergy status to sulfonamides; W20.8XXA Other cause of strike by thrown, projected or falling object, initial encounter; Y93.89 Activity, other specified; Y92.89 Other specified places as the place of occurrence of the external cause; Y99.8 Other external cause status
CPT/HCPCS: 11730; 99283

== ENCOUNTER 2020-09-01 01:13 | Emergency (ER) | payer OTHER ==
[~2020-09-01] VITALS: Ht 175.3 cm; Wt 122.4 kg
[~2020-09-01 01:13] MED LIST changes: +MUPI22OI2 TP
[2020-09-01] MEDS ORDERED: OMEP20TA8 PO (01:43)
--- NOTE | 2020-09-01 01:43 | PHYS DOC ---
Past History Past Medical History: Anxiety, Bronchitis, GERD, Other Additional Past Medical Histor: Tachycardia for 3 years Past Surgical History: Appendectomy Smoking: Cigarettes, Less than 1pk/day Alcohol Use: None Drug Use: None Adult General Chief Complaint Chief Complaint: ABDOMINAL PAIN HPI HPI Patient is a 29-year-old male who presents with a chief complaint of heartburn. States he has been having heartburn over the last 3 to 4 weeks or so. States it is worse after he eats heavy or spicy foods and can feel it moving up from his stomach to his mouth. States that it leaves a bitter taste in his mouth. States it is worse at night when he lays down as well. States he does take Tums occasionally which does seem to help but has not been taking them consistently or daily. 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 States he does not drink any coffee or caffeinated beverages but does occasionally have alcohol. Does state that he has a really poor diet eating spicy foods, heavy foods and things with tomato sauce which really seem to set him off. Denies any recent travel, traumas, fevers, chest pain, shortness of breath, other abdominal pain, dysuria, hematuria, blood in the stool, nausea or vomiting. Review of Systems Review of Systems Review of systems otherwise unremarkable except noted in HPI Allergies Allergies Allergies Coded Allergies Type Severity Reaction Last Updated Verified doxycycline Allergy Severe Hives 07/13/20 Yes amoxicillin Allergy Intermediate rash 07/13/20 No clavulanic acid Allergy Intermediate 07/13/20 No Penicillins Allergy Unknown 07/13/20 Yes sulfamethoxazole Allergy Unknown 07/13/20 Yes trimethoprim Allergy Unknown 07/13/20 Yes Physical Exam Physical Exam Constitutional: Well developed, well nourished, no acute distress, non-toxic appearance. [] HENT: Normocephalic, atraumatic, bilateral external ears normal, oropharynx moist, no oral exudates, nose normal. [] Eyes: conjunctiva normal, no discharge. [] Neck: Normal range of motion, no tenderness, supple, no stridor. [] Cardiovascular:Heart rate regular rhythm, no murmur [] Lungs & Thorax: Bilateral breath sounds clear to auscultation [] Abdomen: soft, no tenderness, no masses, no pulsatile masses. [] Skin: Warm, dry, no erythema, no rash. [] Back: no CVA tenderness. [] Extremities: No tenderness, no cyanosis, no clubbing, ROM intact, no edema. [] Neurologic: Alert and oriented X 3, normal motor function, normal sensory func tion, no focal deficits noted. [] Psychologic: Affect normal, judgement normal, mood normal. [] EKG EKG [] Radiology/Procedures Radiology/Procedures [] Heart Score C/O Chest Pain: No Risk Factors: Risk Factors: DM, Current or recent (<one month) smoker, HTN, HLP, family history of CAD, obesity. Risk Scores: Risk Factors: DM, Current or recent (<one month) smoker, HTN, HLP, family history of CAD, obesity. Course & Med Decision Making Course & Med Decision Making Patient is a 29-year-old male who presents with a month of heartburn Vital signs notable for hypertension. Physical exam noted above. Given GI cocktail which did seem to help his symptoms. Discussed all findings with patient and discussed the need to get his heartburn/GERD under control. Advised on several strategies at home including beginning an [id number] PPI as well as Tums 3 times a day with meals. Advised on diet changes as well and given education. Advised to follow-up with primary care physician as soon as he can to discuss this matter and set up continued evaluation and treatment including an EGD. Gave strict return precautions to the ED. Patient grateful, verbalized understanding and agreed with plan of discharge. [] Dragon Disclaimer Dragon Disclaimer This electronic medical record was generated, in whole or in part, using a voice recognition dictation system. Departure Departure: Impression: Primary Impression: GERD (gastroesophageal reflux disease) Additional Impression: Heartburn Disposition: 01 HOME / SELF CARE / HOMELESS Condition: GOOD Referrals: CHELSEA OLSON MD (PCP) Patient Instructions: Diet for Gastroesophageal Reflux Disease, Adult, Gastroesophageal Reflux Disease, Adult, Gastroesophageal Reflux Scan Additional Instructions: Please read all of the information carefully especially the part about diet. Please change your diet accordingly as discussed and given in your education as soon as possible. Please begin an [id number] antiheartburn medicine such as omeprazole daily. Please also begin a Tums regimen daily with meals as indicated on the bottle. Please call your primary care physician first thing Thursday morning to discuss your ED visit and need for further evaluation and treatment of your GERD/heartburn including imaging such as an EGD, and continued diet and lifestyle management. Please come back to the ED with new or co ncerning symptoms. Scripts Omeprazole (OMEPRAZOLE) 20 Mg Tablet.dr 1 TAB PO DAILY for GERD for 30 Days, #30 TAB 1 Refill Prov: NUHA GARCIA MD 09/01/20 Problem Qualifiers NUHA GARCIA MD Sep 01, 2020 01:43
[2020-09-01] MEDS ORDERED: LIDO:MAALOX 1:1 20 ML SINGLE DOSE. PO ONE (02:00)
[2020-09-01] MEDS ORDERED: ONDANSETRON ODT 4 MG TAB.RAPDIS ONE (02:17)
[2020-09-01 02:20] VITALS: BP 159/97
[2020-09-01] MEDS ORDERED: ONDANSETRON ODT 4 MG TAB.RAPDIS PO ONE (02:30)
== END 2020-09-01 02:25 | disposition home or self-care (01) ==
LOC: ER 01:13
DX: K21.9 Gastro-esophageal reflux disease without esophagitis (principal); R12 Heartburn; F17.210 Nicotine dependence, cigarettes, uncomplicated; Z90.89 Acquired absence of other organs; Z88.0 Allergy status to penicillin; Z88.1 Allergy status to other antibiotic agents; Z88.2 Allergy status to sulfonamides; Z88.8 Allergy status to other drugs, medicaments and biological substances
CPT/HCPCS: 99283; Q0162

== ENCOUNTER 2020-09-04 11:02 | Emergency (ER) | payer OTHER ==
[~2020-09-04] VITALS: Ht 175.3 cm; Wt 122.4 kg
[~2020-09-04 11:02] MED LIST changes: +OMEP20TA8 PO
[2020-09-04 13:36] VITALS: BP 115/96
== END 2020-09-04 14:11 | disposition home or self-care (01) ==
LOC: ER 11:02
DX: F41.1 Generalized anxiety disorder (principal); R00.2 Palpitations; R20.0 Anesthesia of skin; F41.9 Anxiety disorder, unspecified; K21.9 Gastro-esophageal reflux disease without esophagitis; F17.210 Nicotine dependence, cigarettes, uncomplicated; Z88.1 Allergy status to other antibiotic agents; Z88.0 Allergy status to penicillin
CPT/HCPCS: 36415; 80048; 84484; 85025; 93005; 96361; 96374; 99283; J2060; J7030

== ENCOUNTER 2021-01-13 21:07 | Emergency (ER) | payer OTHER ==
[~2021-01-13] VITALS: Ht 177.8 cm; Wt 91.0 kg
[2021-01-13 21:18] VITALS: BP 145/88
[2021-01-13] MEDS ORDERED: CYCLOBENZAPRINE 10 MG TABLET. PO ONE (21:30)
[2021-01-13] MEDS ORDERED: HYDROcodone/APAP 5/325MG 1 TAB TABLET PO ONE (21:30)
[2021-01-13] MEDS ORDERED: CYCL-331 PO (21:31)
[2021-01-13] MEDS ORDERED: IBUP600T16 PO (21:31)
--- NOTE | 2021-01-13 21:33 | PHYS DOC ---
Past History Past Medical History: Anxiety, Bronchitis, GERD, Other Additional Past Medical Histor: Tachycardia for 3 years (RATNA THAKUR APRN) Past Surgical History: Appendectomy (RATNA THAKUR APRN) Smoking: Cigarettes, Less than 1pk/day Alcohol Use: None Drug Use: None (RATNA THAKUR APRN) Adult General Chief Complaint Chief Complaint: BACK PAIN - NO INJURY HPI HPI Patient is a 30-year-old male who presents to the emergency department chief complaint of wanting a COVID-19 test. Patient reports he sneezed yesterday and is concerned he might have the Covid virus. Patient also complains of mid back pain after sneezing. Patient reports it is worse if he is bending sideways otherwise reports a 7 out of 10 pain. Patient denies any numbness or tingling, chest congestion, chest pains, nasal congestion. Patient denies nausea, vomiting, diarrhea. Patient denies any other physical complaints or physical concerns. Patient reports completing the COVID-19 virus vaccination series on 2020, Moderna type. (RATNA THAKUR APRN) Review of Systems Review of Systems 14 body systems of review of systems have been reviewed. See HPI for pertinent positives and negative responses, otherwise all other systems are negative, nonpertinent or noncontributory. Constitutional: Negative except as outlined in HPI above. Skin: Negative except as outlined in HPI above. Eyes: Negative except as outlined in HPI above. HENT: Negative except as outlined in HPI above. Respiratory: Negative except as outlined in HPI above. Cardiovascular: Negative except as outlined in HPI above. GI: Negative except as outlined in HPI above. : Negative except as outlined in HPI above. Musculoskeletal: Negative except as outlined in HPI above. Integument: Negative except as outlined in HPI above. Neurologic: Negative except as outlined in HPI above. Endocrine: Negative except as outlined in HPI above. Lymphatic: Negative except as outlined in HPI above. Psychiatric: Negative except as outlined in HPI above. (RATNA THAKUR APRN) Allergies Allergies Allergies Coded Allergies Type Severity Reaction Last Updated Verified doxycycline Allergy Severe Hives 07/13/20 Yes amoxicillin Allergy Intermediate rash 07/13/20 No clavulanic acid Allergy Intermediate 07/13/20 No Penicillins Allergy Unknown 07/13/20 Yes sulfamethoxazole Allergy Unknown 07/13/20 Yes trimethoprim Allergy Unknown 07/13/20 Yes (RATNA THAKUR APRN) Physical Exam Physical Exam Constitutional: Well developed, well nourished, no acute distress, non-toxic appearance. 30-year-old male in no apparent distress. HENT: Normocephalic, atraumatic. Eyes: Conjunctiva normal, no discharge. Neck: Normal range of motion, no stridor. Cardiovascular: No cyanosis appreciated, distal cap refill less than 2 seconds. Lungs & Thorax: Patient is in no respiratory distress, no audible adventitious lung sounds appreciated. Lung sounds clear to auscultate all lung ackerman. Normal work of breathing. Abdomen: Nontender, no abnormalities noted. Skin: Warm, dry, no erythema, no rash. Back: No tenderness, no deformities. Extremities: No tenderness, no cyanosis, no clubbing, ROM intact, no edema. Neurologic: Alert and oriented X 3, normal motor function, normal sensory function, no focal deficits noted. Psychologic: Affect normal, judgement normal, mood normal. (RATNA THAKUR APRN) Current Patient Data Vital Signs Vital Signs Date Time Temp Pulse Resp B/P (MAP) Pulse Ox O2 Delivery O2 Flow Rate FiO2 01/13/21 21:18 99.0 102 16 145/88 100 Room Air (RANTA THAKUR APRN) EKG EKG [] (RATNA THAKUR APRN) Radiology/Procedures Radiology/Procedures [] (RATNA THAKUR APRN) Heart Score C/O Chest Pain: No Risk Factors: Risk Factors: DM, Current or recent (<one month) smoker, HTN, HLP, family history of CAD, obesity. Risk Scores: Risk Factors: DM, Current or recent (<one month) smoker, HTN, HLP, family history of CAD, obesity. (RATNA THAKUR APRN) Course & Med Decision Making Course & Med Decision Making Pertinent Labs and Imaging studies reviewed. (See chart for details) 30-year-old male, vital signs reviewed, presents emergency department requesting a COVID-19 virus test. Patient states he sneezed yesterday and now has some back pain. Physical examination insistent with paraspinal muscular back pain most likely exacerbated by sneezing spell yesterday. Ordered oral pain medication, muscle relaxer. Discussed findings with patient, will discharge to home, patient is amenable to ED discharge planning. Discussed with the patient all findings and diagnostic testing as well as the need to follow-up with their primary care provider for further evaluation and treatment or return to the ED if any new or worsening symptoms. Strict return precautions were also discussed at length, the patient voiced understanding and agreement with the discharge planning. The patient was nontoxic in appearance, in no apparent distress, and hemodynamically stable at the time of disposition. Patient reports he will go to [facility] tomorrow and obtain a rapid Covid test. (RATNA THAKUR APRN) Course & Med Decision Making Did not see or evaluate patient. Did not discussed patient with ASSISTANT PROFESSOR. Agree with ASSISTANT PROFESSOR's work-up and disposition per note. (NUHA GARCIA MD) Dragon Disclaimer Dragon Disclaimer This electronic medical record was generated, in whole or in part, using a voice recognition dictation system. (RATNA THAKUR APRN) Departure Departure: Impression: Primary Impression: Back pain Disposition: HOME / SELF CARE / HOMELESS Condition: GOOD Referrals: CHELSEA OLSON MD (PCP) Patient Instructions: Back Pain, Adult Additional Instructions: You were seen today in the emergency department for back pain after a sneezing spell you had yesterday. You were treated today with oral pain medication and a muscle relaxer. Please follow-up with your primary care physician for ongoing sneezing spells and back pains. Thank you for visiting our Emergency Department . It was a pleasure taking care of you today in the emergency department and we appreciate you trusting us with your care. If any additional problems come up don't hesitate to return to visit us. Please follow up with your primary care provider so they can plan additional care if needed and know about the problem that you had. If symptoms worsen come back to the Emergency Department. Any concerning symptoms that start such as chest pain, shortness of air, weakness or numbness on one side of the body, running high fevers or any other concerning symptoms return to the ER. Scripts Ibuprofen (IBUPROFEN) 600 Mg Tablet 600 MG PO Q6-8HRS PRN for PAIN, #30 TAB 0 Refills Prov: RATNA THAKUR APRN 01/13/21 Cyclobenzaprine Hcl (CYCLOBENZAPRINE HCL) 10 Mg Tablet 1 TAB PO TID PRN PRN for PAIN, #12 TAB 0 Refills Prov: RATNA THAKUR APRN 01/13/21 Problem Qualifiers Primary Impression: Back pain Back pain location: thoracic back pain Chronicity: acute Back pain laterality: bilateral Qualified Codes: M54.6 - Pain in thoracic spine RATNA THAKUR APRN Jan 13, 2021 21:33 NUHA GARCIA MD Jan 13, 2021 23:36
== END 2021-01-13 21:45 | disposition home or self-care (01) ==
LOC: ER 21:08
DX: M54.6 Pain in thoracic spine (principal); K21.9 Gastro-esophageal reflux disease without esophagitis; F17.210 Nicotine dependence, cigarettes, uncomplicated; Z88.1 Allergy status to other antibiotic agents; Z88.0 Allergy status to penicillin; Z88.2 Allergy status to sulfonamides
CPT/HCPCS: 99283

== ENCOUNTER 2021-01-22 21:38 | Emergency (ER) | payer OTHER ==
[~2021-01-22] VITALS: Ht 177.8 cm; Wt 91.0 kg
[2021-01-22 21:38] VITALS: BP 137/76
[~2021-01-22 21:38] MED LIST changes: +CYCL-331 PO; +IBUP600T16 PO
--- NOTE | 2021-01-22 22:16 | PHYS DOC ---
Past History Past Medical History: Anxiety, Bronchitis, GERD, Other Additional Past Medical Histor: Tachycardia for 3 years Past Surgical History: Appendectomy Smoking: Cigarettes, Less than 1pk/day Alcohol Use: None Drug Use: None General Adult EDM: Chief Complaint: COUGH HPI: HPI: 30-year-old male presents with cough, congestion, body aches. He went to see his primary care physician today and was negative for influenza. They did a rapid Covid which was negative. His PCR Covid is not back yet. He came in tonight because he keeps coughing and makes his throat hurt. He states that he has some chest discomfort but admits that is because he keeps coughing. He has been taking zdxj-owi-fogxzks medications for cough. He denies fever or chills. He has been checking his blood pressure and oxygen level every hour at home. His oxygen saturation has been greater than 97% all day. His blood pressure has been normal. He has no other specific complaints. Review of Systems: Review of Systems: Constitutional: Denies fever or chills. Body aches, fatigue. Eyes: Denies change in visual acuity HENT: Denies nasal congestion or sore throat Respiratory: Cough without shortness of breath Cardiovascular: Denies chest pain or edema GI: Denies abdominal pain, nausea, vomiting, bloody stools or diarrhea : Denies dysuria Musculoskeletal: Denies back pain or joint pain Integument: Denies rash Neurologic: Denies headache, focal weakness or sensory changes Endocrine: Denies polyuria or polydipsia Lymphatic: Denies swollen glands Psychiatric: Denies depression or anxiety Current Medications: Current Meds: Current Medications Medications (Trade) Dose Ordered Sig/Lionel Start Time Stop Time Status Last Admin Dose Admin Multi-Ingredient Mouthwash/Gargle (Gi Cocktail) 20 ml 1X ONCE 01/22/21 22:15 01/22/21 22:16 UNV Allergies: Allergies: Allergies Coded Allergies Type Severity Reaction Last Updated Verified doxycycline Allergy Severe Hives 07/13/20 Yes amoxicillin Allergy Intermediate rash 07/13/20 No clavulanic acid Allergy Intermediate 07/13/20 No Penicillins Allergy Unknown 07/13/20 Yes sulfamethoxazole Allergy Unknown 07/13/20 Yes trimethoprim Allergy Unknown 07/13/20 Yes Physical Exam: PE: Constitutional: Well developed, well nourished, no acute distress, non-toxic appearance. [] HENT: Normocephalic, atraumatic, bilateral external ears normal, oropharynx moist, no oral exudates, nose normal. [] Eyes: PERRLA, EOMI, conjunctiva normal, no discharge. [] Neck: Normal range of motion, no tenderness, supple, no stridor. [] Cardiovascular:Heart rate regular rhythm, no murmur [] Lungs & Thorax: Coughing. Bilateral breath sounds clear to auscultation [] Abdomen: Bowel sounds normal, soft, no tenderness, no masses, no pulsatile masses. [] Skin: Warm, dry, no erythema, no rash. [] Back: No tenderness, no CVA tenderness. [] Extremities: No tenderness, no cyanosis, no clubbing, ROM intact, no edema. [] Neurologic: Alert and oriented X 3, normal motor function, normal sensory function, no focal deficits noted. [] Psychologic: Affect normal, judgement normal, mood normal. [] EKG: EKG: Sinus rhythm, rate 92, normal axis, no ST elevation or depression. [] Radiology/Procedures: Radiology/Procedures: [] Heart Score: C/O Chest Pain: Yes HEART Score for Chest Pain: HEART Score for Chest Pain Response (Comments) Value History Slighlty/Non-Suspicious 0 ECG Normal 0 Age < 45 0 Risk Factors 1 or 2 Risk Factors 1 Troponin < Normal Limit 0 Total 1 Risk Factors: Risk Factors: DM, Current or recent (<one month) smoker, HTN, HLP, family history of CAD, obesity. Risk Scores: Score 0 - 3: 2.5% MACE over next 6 weeks - Discharge Home Score 4 - 6: 20.3% MACE over next 6 weeks - Admit for Clinical Observation Score 7 - 10: 72.7% MACE over next 6 weeks - Early Invasive Strategies Course & Med Decision Making: Course & Med Decision Making Pertinent Labs and Imaging studies reviewed. (See chart for details) I am not sure why the patient is in the emergency room. He already knows what his diagnosis is which is COVID-19 or another viral illness. He is already taking the expected medications. I will give him a GI cocktail to help soothe his throat pain. Chest x-ray is unremarkable. He was vaccinated against COVID- 19 so it is less likely he will have severe disease. I explained this to the patient but told him warning signs to look out for. He already checks his blood pressure and oxygen saturation regularly. He is stable for discharge at this time. [] [place] Disclaimer: Rosey Disclaimer: This electronic medical record was generated, in whole or in part, using a voice recognition dictation system. Departure Departure: Impression: Primary Impression: Sore throat Additional Impression: Viral URI with cough Disposition: HOME / SELF CARE / HOMELESS Condition: STABLE Referrals: CHELSEA OLSON MD (PCP) Patient Instructions: Upper Respiratory Infection, Adult, Vrna-qo-Ehpi SILVESTRE BENAVIDES DO Jan 22, 2021 22:16
[2021-01-22] MEDS ORDERED: LIDO:MAALOX 1:1 20 ML SINGLE DOSE. PO ONE (22:45)
--- NOTE | 2021-01-22 23:58 | RAD ---
EXAMINATION: Chest radiograph. VIEWS: Single AP view of the chest COMPARISON: 10/15/2019 INDICATION:30 years, Male, COVID, sore throat, cough, congestion. FINDINGS: Normal cardiomediastinal silhouette. No focal consolidation. No pleural effusion or pneumothorax. No acute osseous process. IMPRESSION: No acute cardiopulmonary process. Electronically signed by: Wilder Maza DO (01/22/2021 11:55 PM) [facility]
--- NOTE | 2021-01-23 07:27 | EKG ---
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
== END 2021-01-22 22:37 | disposition home or self-care (01) ==
LOC: ER 21:38
DX: J02.8 Acute pharyngitis due to other specified organisms (principal); R07.89 Other chest pain; K21.9 Gastro-esophageal reflux disease without esophagitis; F17.210 Nicotine dependence, cigarettes, uncomplicated; Z88.1 Allergy status to other antibiotic agents; Z88.0 Allergy status to penicillin; Z88.2 Allergy status to sulfonamides
CPT/HCPCS: 71045; 99283

== ENCOUNTER 2021-01-30 09:44 | Emergency (ER) | payer OTHER ==
[~2021-01-30] VITALS: Ht 177.8 cm; Wt 120.0 kg
[2021-01-30 10:02] VITALS: BP 129/72
[2021-01-30] MEDS ORDERED: IBUPROFEN 600 MG TABLET. PO ONE (10:30)
--- NOTE | 2021-01-30 10:40 | PHYS DOC ---
Past History Past Medical History: Anxiety, Bronchitis, GERD, Other Additional Past Medical Histor: Tachycardia for 3 years (BLAZE HERNÁNDEZ APRN) Past Surgical History: Appendectomy (BLAZE HERNÁNDEZ APRN) Smoking: Cigarettes, Less than 1pk/day Alcohol Use: None Drug Use: None (BLAZE HERNÁNDEZ APRN) General Adult EDM: Chief Complaint: COUGH HPI: HPI: Patient is a 30-year-old male who presents with cough and sore throat for 2 weeks. Patient states "I have been seen by my PCP who gave me an antibiotic and have also been to the ER 3 times for the same symptoms". "I feel like I am not getting any better". "I got my second shot for Covid at the end of December and since then I have had a tickle in my throat and cough". "They also gave me prednisone which I am extremely allergic to and it made my heart race". "I came in today because when I coughed I coughed so hard that I threw up" patient is currently on an antibiotic and has been taking 800 mg ibuprofen 1 time daily. Patient reports a history of anxiety and panic attacks. Denies fever. Denies chest pain or shortness of breath. denies nausea/vomiting/diarrhea. (BLAZE HERNÁNDEZ APRN) Review of Systems: Review of Systems: Constitutional: Denies fever or chills Eyes: Denies change in visual acuity HENT: Reports nasal congestion and sore throat Respiratory: Reports cough. Denies shortness of breath Cardiovascular: Denies chest pain or edema GI: Denies abdominal pain, nausea, vomiting, bloody stools or diarrhea : Denies dysuria Musculoskeletal: Denies back pain or joint pain Integument: Denies rash Neurologic: Denies headache, focal weakness or sensory changes Endocrine: Denies polyuria or polydipsia Lymphatic: Denies swollen glands Psychiatric: Reports history of depression anxiety (BLAZE HERNÁNDEZ APRN) Allergies: Allergies: Allergies Coded Allergies Type Severity Reaction Last Updated Verified doxycycline Allergy Severe Hives 07/13/20 Yes amoxicillin Allergy Intermediate rash 07/13/20 No clavulanic acid Allergy Intermediate 07/13/20 No Penicillins Allergy Unknown 07/13/20 Yes sulfamethoxazole Allergy Unknown 07/13/20 Yes trimethoprim Allergy Unknown 07/13/20 Yes (BLAZE HERNÁNDEZ APRN) Physical Exam: PE: Constitutional: Well developed, well nourished, no acute distress, non-toxic appearance. [] HENT: Normocephalic, atraumatic, bilateral external ears normal, oropharynx moist, no oral exudates, nose normal. [] Eyes: PERRLA, EOMI, conjunctiva normal, no discharge. [] Neck: Normal range of motion, no tenderness, supple, no stridor. [] Cardiovascular:Heart rate regular rhythm, no murmur [] Lungs & Thorax: Bilateral breath sounds clear to auscultation [] Abdomen: Bowel sounds normal, soft, no tenderness, no masses, no pulsatile masses. [] Skin: Warm, dry, no erythema, no rash. [] Back: No tenderness, no CVA tenderness. [] Extremities: No tenderness, no cyanosis, no clubbing, ROM intact, no edema. [] Neurologic: Alert and oriented X 3, normal motor function, normal sensory function, no focal deficits noted. [] Psychologic: Affect normal, judgement normal, mood normal. [] (BLAZE HERNÁNDEZ APRN) Current Patient Data: Vital Signs: Vital Signs Date Time Temp Pulse Resp B/P (MAP) Pulse Ox O2 Delivery O2 Flow Rate FiO2 01/30/21 10:02 98.6 88 16 129/72 (91) 99 (BLAZE HERNÁNDEZ APRN) EKG: EKG: [] (BLAZE HERNÁNDEZ APRN) Radiology/Procedures: Radiology/Procedures: []XR CHEST 1V CLINICAL INDICATIONS: Reason: COUGH / Spl. Instructions: / History: COMPARISON: January 22, 2021. Findings: No acute lung infiltrate or pleural effusion or pulmonary edema or lung mass or pneumothorax is seen. The heart size, pulmonary vasculature, mediastinum and both maurilio are unremarkable. IMPRESSION: No acute radiographic abnormality is seen. Electronically signed by: Bonilla Obrien MD (01/30/2021 10:37 AM) [id number] (BLAZE HERNÁNDEZ APRN) Heart Score: C/O Chest Pain: No Risk Factors: Risk Factors: DM, Current or recent (<one month) smoker, HTN, HLP, family history of CAD, obesity. Risk Scores: Score 0 - 3: 2.5% MACE over next 6 weeks - Discharge Home Score 4 - 6: 20.3% MACE over next 6 weeks - Admit for Clinical Observation Score 7 - 10: 72.7% MACE over next 6 weeks - Early Invasive Strategies (BLAZE HERNÁNDEZ APRN) Course & Med Decision Making: Course & Med Decision Making Pertinent Labs and Imaging studies reviewed. (See chart for details) [] 30-year-old male presents with cough and sore throat for 2 weeks. Patient is currently taking cefdinir and 800 mg ibuprofen 1 time daily. Patient is refusing steroids because he feels he has an allergy to them. Discussed with patient that cough may take a little longer to resolve and he most likely has a viral infection. Patient is requesting a chest x-ray which was unremarkable. Patient given 600 mg ibuprofen. Lung sounds clear throughout. No oral exudates noted. Patient's throat does appear irritated due to drainage and cough. Patient was tested for strep throat, Covid, flu 3 days ago on last visit to the emergency room. Patient given instructions for at-home treatment. Suggested warm salt water gargles. Throat lozenges. 600 mg ibuprofen every 8 hours to help with sore throat. Patient instructed to follow-up with PCP if symptoms do not resolve. Continue taking antibiotic as directed. (BLAZE HERNÁNDEZ APRN) Course & Med Decision Making I have reviewed and was available for consultation in the emergency department for this patient that was seen by midlevel provider. Agree with plan. Graham Raphael DO (GRAHAM RAPHAEL DO) Rosey Disclaimer: Rosey Disclaimer: This electronic medical record was generated, in whole or in part, using a voice recognition dictation system. (BLAZE HERNÁNDEZ APRN) Departure Departure: Impression: Primary Impression: Cough Additional Impression: Sore throat Disposition: HOME / SELF CARE / HOMELESS Condition: STABLE Referrals: CHELSEA OLSON MD (PCP) Patient Instructions: Cough, Adult, Dvai-az-Vhdt Additional Instructions: You were seen in the emergency room for a cough and sore throat. Your chest x- ray was unremarkable. You were also given 600 mg ibuprofen. as we discussed cough may take some time to resolve. Continue taking your antibiotic as directed by your PCP. Warm salt water gargles will help with your sore throat. Cough drops can also help with the tickle in your throat along with your cough. Take 600 mg ibuprofen every 8 hours to help with pain. Also important to stop smoking cigarettes which can be contributing to the cough as well. Please call your PCP make a follow-up appointment if symptoms do not resolve. Return to the emergency room if you have worsening symptoms or concerns. EMERGENCY DEPARTMENT GENERAL DISCHARGE INSTRUCTIONS Thank you for coming to [facility] (ED) today and trusting us with you care. We trust that you had a positivie experience in our Emergency Department. If you wish to speak to the department management, you may call the director at [phone]. YOUR FOLLOW UP INSTRUCTIONS ARE FOLLOWS: 1. Do you have a private Doctor? If you do not have a private doctor, please ask for a resource list of physicians or clinics that may be able to assist you with fol low up care. 2. The Emergency Physician has interpreted your x-rays. The X-Ray specialist will also review them. If there is a change in the findings, you will be notified in 48 hours when at all possible. 3. A lab test or culture has been done, your results will be reviewed and you will be notified if you need a change in treatment. ADDITIONAL INSTRUCTIONS AND INFORMATION: 1. Your care today has been supervised by a physician who is specially trained in emergency care. Many problems require more than one evaluation for a complete diagnosis and treatment. We recommend that you schedule your follow up appointment as r ecommended to ensure complete treatment of you illness or injury. If you are unable to obtain follow up care and continue to have a problem, or if your condition worsens, we recommend that you return to the ED. 2. We are not able to safely determine your condition over the phone nor are we able to give sound medical advice over the phone. For these safety reasons, if you call for medical advice we will ask you to come to the ED for further evaluation. 3. If you have any questions regarding these discharge instructions please call the ED at [phone]. SAFETY INFORMATION: In the interest of safety, wellness, and injury prevention; we encourage you to wear your sealbelt, if you smoke; quite smoking, and we encourage family to use a protective helmet for bicycling and other sporting events that present an increased risk for head injury. IF YOUR SYMPTOMS WORSEN OR NEW SYMPTOMS DEVELOP, OR YOU HAVE CONCERNS ABOUT YOUR CONDITION; OR IF YOUR CONDITION WORSENS WHILE YOU ARE WAITING FOR YOUR FOLLOW UP APPOINTMENT; EITHER CONTACT YOUR PRIMARY CARE DOCTOR, THE PHYSICIAN WHOSE NAME AND NUMBER YOU WERE GIVEN, OR RETURN TO THE ED IMMEDIATELY. BLAZE HERNÁNDEZ APRN Jan 30, 2021 10:40 GRAHAM RAPHAEL DO Jan 30, 2021 16:28
== END 2021-01-30 11:30 | disposition home or self-care (01) ==
LOC: ER 09:44
DX: J02.9 Acute pharyngitis, unspecified (principal); R09.81 Nasal congestion; R05 Cough; K21.9 Gastro-esophageal reflux disease without esophagitis; F17.210 Nicotine dependence, cigarettes, uncomplicated; F41.9 Anxiety disorder, unspecified; Z90.89 Acquired absence of other organs; Z88.1 Allergy status to other antibiotic agents; Z88.0 Allergy status to penicillin; Z88.2 Allergy status to sulfonamides
CPT/HCPCS: 71045; 99283

== ENCOUNTER 2021-02-03 20:56 | Emergency (ER) | payer OTHER ==
[~2021-02-03] VITALS: Ht 177.8 cm; Wt 116.0 kg
[2021-02-03 21:03] VITALS: BP 136/89
--- NOTE | 2021-02-03 21:25 | PHYS DOC ---
Past History Past Medical History: Anxiety, Bronchitis, GERD, Other Additional Past Medical Histor: Tachycardia for 3 years Past Surgical History: Appendectomy Smoking: Cigarettes, Less than 1pk/day Alcohol Use: None Drug Use: None General Adult EDM: Chief Complaint: Neck Pain HPI: HPI: ".. I ve been having some upper neck pain.. it sending shocks down my arm on the Lt. .. I ever think my Lt. leg is weak.. ".." I got bad anxiety..and when I ever get any strange symptoms .. I get anxious.. because my dad had an ischemic stroke....I have started smoking again.. " Patient is a 30 year old male who presents with above hx and complains of neck pain, Lt. arm and possible Lt. leg weakness. Patient states tonight he is having pain coming off his upper neck down his arm. Patient states this is happened before patient states he has had previous neck injury and back injury while working at [employer]. States he currently has a lawsuit with his previous employer. Patient states he did have a previous MRI of the neck at that time felt that surgery was not an approximate in the treatment plan.. Patient states symptoms started about 3 hours ago but has become more worried through the night. And felt he should come and get checked out. Patient denies any recent neck trauma. Has had previous neck problems and neck injury. Patient denies any problems with defecation or urination. Patient denies any fever or chills. Patient denies any history of IV drug use. Patient denies any history of cancer. Patient's discomfort appears to localize and to the trapezius and radiates down arm as an cervical neuropathy. Currently patient is symptom-free. Patient does advise a restarted smoking. Patient does have past mesh history of panic disorder and anxiety. Patient has history of GERD and bro nchitis. Patient has history of per periodic proximal super ventricular tachycardia. Patient normally follows with Dr. Olson. Patient has completed Moderna vaccination in August 2020. Patient was recently evaluated in the emergency department for bronchitis on 01/30. Review of Systems: Review of Systems: Constitutional: Denies fever or chills Eyes: Denies change in visual acuity HENT: Denies nasal congestion or sore throat. Complains of neck pain Respiratory: Denies cough or shortness of breath Cardiovascular: Denies chest pain or edema GI: Denies abdominal pain, nausea, vomiting, bloody stools or diarrhea : Denies dysuria Musculoskeletal: Denies back pain or joint pain Integument: Denies rash Neurologic: Denies headache, focal weakness or sensory changes Endocrine: Denies polyuria or polydipsia Lymphatic: Denies swollen glands Psychiatric: Hx. panic disorder and anxiety Family History: Family History: Father had a ischemic comic stroke in 2019 Current Medications: Current Meds: See nursing for home meds Allergies: Allergies: Allergies Coded Allergies Type Severity Reaction Last Updated Verified doxycycline Allergy Severe Hives 02/03/21 Yes Penicillins Allergy Intermediate 02/03/21 Yes amoxicillin Allergy Intermediate rash 02/03/21 No clavulanic acid Allergy Intermediate 02/03/21 No sulfamethoxazole Allergy Intermediate 02/03/21 Yes trimethoprim Allergy Intermediate 02/03/21 Yes Physical Exam: PE: Constitutional: Well developed, well nourished, no acute distress, non-toxic appearance. [] HENT: Normocephalic, atraumatic, bilateral external ears normal, oropharynx moist, no oral exudates, nose normal. Eyes: PERRLA, EOMI, conjunctiva normal, no discharge. [] Neck: Normal range of motion, mild left trapezius tenderness, supple, no stridor. [] No midline cervical tenderness Cardiovascular: Tachycardia heart rate regular rhythm, no murmur [] bedside monitor shows a sinus tachycardia with a ventricular rate of 100 to 110. Lungs & Thorax: Bilateral breath sounds equal apex with scattered wheezes on auscultation [] Abdomen: Bowel sounds normal, soft, no tenderness, no masses, no pulsatile masses. [] Surgical scars. Skin: Warm, dry, no erythema, no rash. [] Back: No tenderness, no CVA tenderness. [] Extremities: No tenderness, no cyanosis, no clubbing, ROM intact, no edema. [] Neurologic: Alert and oriented X 3, normal motor function, normal sensory function, no focal deficits noted. DTRs +2 patella and brachial. No drift. Cane Flume Watcher equal. Right-hand dominant. Ambulatory without problems. [] Psychologic: Affect anxious, judgement normal, mood normal. [] Current Patient Data: Vital Signs: Vital Signs Date Time Temp Pulse Resp B/P (MAP) Pulse Ox O2 Delivery O2 Flow Rate FiO2 02/03/21 21:03 99.9 111 18 136/89 (105 98 Room Air EKG: EKG: My interpretation EKG shows a sinus tachycardia 112 bpm. Other than tachycardia no acute pathology appreciated. [] Radiology/Procedures: Radiology/Procedures: [][address] [address] IMAGING REPORT Signed PATIENT: NACHO JEROME ACCOUNT: [id number] : 1990 LOCATION: ER AGE: 30 SEX: M EXAM STATUS: REG ER ORD. PHYSICIAN: SHABANA TINSLEY MD REASON: headache/neck pain x3 hours. left sided numbness PROCEDURE: CT HEAD AND CERVICAL SPINE WO EXAM: CT head and cervical spine without contrast INDICATION: Left-sided numbness. Had neck pain. COMPARISON: None TECHNIQUE: Axial CT imaging through the head and cervical spine without intr avenous contrast. Sagittal and coronal reformats were obtained. One or more of the following individualized dose reduction techniques were utilized for this examination: 1. Automated exposure control 2. Adjustment of the mA and/or kV according to patient size 3. Use of iterative reconstruction technique. FINDINGS: CT head: The ventricles and sulci are normal. [place]-white matter differentiation is maintained. There is no intracranial hemorrhage, acute infarct, or mass lesion. Basal cisterns are clear. No acute fracture. Old right medial orbital wall fracture. Globes are intact. Paranasal sinuses and mastoid air cells are clear. CT cervical spine: No acute fracture. Alignment is normal. There is straightening of lordosis. The craniocervical junction and atlantoaxial interval are maintained. Disc spaces and facet joints are normal. Prevertebral soft tissue is normal. IMPRESSION: 1. No acute intracranial abnormality. 2. No acute osseous abnormality of the cervical spine. Electronically signed by: Selina Fox MD (02/03/2021 10:43 PM) [facility] DICTATED AND SIGNED BY: SELINA FOX MD DATE: 02/03/212237 CC: SHABANA TINSLEY MD; CHELSEA OLSON MD ~MTH0 0 Heart Score: C/O Chest Pain: N/A HEART Score for Chest Pain: HEART Score for Chest Pain Response (Comments) Value History Slighlty/Non-Suspicious 0 ECG Normal 0 Age < 45 0 Risk Factors 1 or 2 Risk Factors 1 Total 1 Risk Factors: Risk Factors: DM, Current or recent (<one month) smoker, HTN, HLP, family history of CAD, obesity. Risk Scores: Score 0 - 3: 2.5% MACE over next 6 weeks - Discharge Home Score 4 - 6: 20.3% MACE over next 6 weeks - Admit for Clinical Observation Score 7 - 10: 72.7% MACE over next 6 weeks - Early Invasive Strategies Course & Med Decision Making: Course & Med Decision Making Pertinent Labs and Imaging studies reviewed. (See chart for details) Patient's symptoms resolved in the ER. Patient encouraged to stop smoking. Patient encouraged to follow-up with Dr. Olson. Patient have Dr. Olson review ED work-up. Patient consider repeat MRI. Recommend keep a record of previous MRI results as well as CT results today. Patient consider taking a daily half aspirin. Consider outpatient stress testing because of history of previous episodes of proximal supraventricular tachycardia. Patient return if any concerns. Take Tylenol and ibuprofen for pain. Impression: 1, Upper neck paint that radiates into Lt shoulder.-Cervical neuropathy 2. Tobacco use 3. History of supervision ventricular proximal tachycardia 4. History of cervical and low back injury while working at [employer] 5. History of anxiety and panic disorder [] Dragon Disclaimer: Dragon Disclaimer: This electronic medical record was generated, in whole or in part, using a voice recognition dictation system. Departure Departure: Referrals: CHELSEA OLSON MD (PCP) [place] Disclaimer This chart was dictated in whole or in part using Voice Recognition software in a busy, high-work load, and often noisy Emergency Department environment. It may contain unintended and wholly unrecognized errors or omissions. Dragon Disclaimer This chart was dictated in whole or in part using Voice Recognition software in a busy, high-work load, and often noisy Emergency Department environment. It may contain unintended and wholly unrecognized errors or omissions. SHABANA TINSLEY MD Feb 03, 2021 21:25
--- NOTE | 2021-02-03 21:32 | EKG ---
[address] [address] Test Date: 2021-02-03 Test Time: 21:16:30 Pat Name: NACHO JEROME Department: Room: Gender: M Mock Up Assembler: ANNA : 1990 Requested By: SHABANA TINSLEY Order Number: [id number] Reading MD: Measurements Intervals [place] Rate: 112 P: 5 ME: 110 QRS: 64 QRSD: 88 T: 40 QT: 326 QTc: 447 Interpretive Statements SINUS TACHYCARDIA OTHERWISE NORMAL ECG RI6.02 No previous ECG available for comparison
--- NOTE | 2021-02-03 22:45 | RAD ---
EXAM: CT head and cervical spine without contrast INDICATION: Left-sided numbness. Had neck pain. COMPARISON: None TECHNIQUE: Axial CT imaging through the head and cervical spine without intravenous contrast. Sagitta l and coronal reformats were obtained. One or more of the following individualized dose reduction techniques were utilized for this examinat ion: 1. Automated exposure control 2. Adjustment of the mA and/or kV according to patient size 3. Use of iterative reconstruction technique. FINDINGS: CT head: The ventricles and sulci are normal. [place]-white matter differentiation is maintained. There is no in tracranial hemorrhage, acute infarct, or mass lesion. Basal cisterns are clear. No acute fracture. Ol d right medial orbital wall fracture. Globes are intact. Paranasal sinuses and mastoid air cells are clear. CT cervical spine: No acute fracture. Alignment is normal. There is straightening of lordosis. The craniocervical juncti on and atlantoaxial interval are maintained. Disc spaces and facet joints are normal. Prevertebral so ft tissue is normal. IMPRESSION: 1. No acute intracranial abnormality. 2. No acute osseous abnormality of the cervical spine. Electronically signed by: Selina Fox MD (02/03/2021 10:43 PM) [facility]
[2021-02-03] MEDS ORDERED: ASPIRIN 325 MG TABLET PO ONE (23:30)
== END 2021-02-03 23:26 | disposition home or self-care (01) ==
LOC: ER 20:56
DX: G54.2 Cervical root disorders, not elsewhere classified (principal); F41.9 Anxiety disorder, unspecified; K21.9 Gastro-esophageal reflux disease without esophagitis; F17.210 Nicotine dependence, cigarettes, uncomplicated; Z88.1 Allergy status to other antibiotic agents; Z88.0 Allergy status to penicillin; Z88.2 Allergy status to sulfonamides
CPT/HCPCS: 70450; 72125; 93005; 99284-25

== ENCOUNTER 2021-02-10 06:39 | Emergency (ER) | payer OTHER ==
[~2021-02-10] VITALS: Ht 177.8 cm; Wt 116.0 kg
[2021-02-10] MEDS ORDERED: LIDO:MAALOX 1:1 20 ML SINGLE DOSE. PO ONE (07:00)
[2021-02-10] MEDS ORDERED: PANTOPRAZOLE IV 40 MG VIAL. IVP ONE (07:00)
[2021-02-10] MEDS ORDERED: FAMOTIDINE 20 MG/2 ML VIAL IVP ONE (07:00)
[2021-02-10] MEDS ORDERED: IV NORMAL SALINE 1,000ML 1,000 ML IV ONE (07:00)
--- NOTE | 2021-02-10 07:32 | RAD ---
AP chest x-ray HISTORY: Chest pain. COMPARISON: Chest x-ray January 2021 FINDINGS: Heart size normal. Mediastinal silhouette is normal. No pneumothorax, pulmonary opacities o r pleural effusions. The bones are unremarkable. IMPRESSION: No acute process. Electronically signed by: Lee Monsalve MD (02/10/2021 7:29 AM) [id number]
[2021-02-10 07:35] LABS: BASO # 0.1 x10^3/uL (0.0-0.2); BASO % 1 % (0-3); EOS # 0.2 x10^3/uL (0.0-0.7); EOS % 2 % (0-3); HEMATOCRIT 44.1 % (39.0-53.0); HEMOGLOBIN 14.6 g/dL (13.0-17.5); LYMPH # 3.8 x10^3/uL (1.0-4.8); LYMPH % 32 % (24-48); MEAN CORPUSCULAR HEMOGLOBIN 29 pg (25-35); MEAN CORPUSCULAR HGB CONC 33 g/dL (31-37); MEAN CORPUSCULAR VOLUME 87 fL (79-100); MONO # 0.9 x10^3/uL (0.0-1.1); MONO % 8 % (0-9); NEUT # 6.9 x10^3uL (1.8-7.7); NEUT % 57 % (31-73); PLATELET COUNT 352 x10^3/uL (140-400); RED BLOOD COUNT 5.09 x10^6/uL (4.30-5.70); RED CELL DISTRIBUTION WIDTH 13.7 % (11.5-14.5)
[2021-02-10 07:43] LABS: CALCIUM 8.5 mg/dL (8.5-10.1); GFR 87.7; POTASSIUM 3.8 mmol/L (3.5-5.1)
[2021-02-10 07:48] LABS: ALBUMIN 3.8 g/dL (3.4-5.0); ALBUMIN/GLOBULIN RATIO 1.1 (1.0-1.7); TOTAL BILIRUBIN 0.4 mg/dL (0.2-1.0); TOTAL PROTEIN 7.3 g/dL (6.4-8.2)
[2021-02-10 08:15] VITALS: BP 135/84
--- NOTE | 2021-02-10 08:15 | PHYS DOC ---
Past History Past Medical History: Anxiety, Bronchitis, GERD, Other Additional Past Medical Histor: Tachycardia for 3 years Past Surgical History: Appendectomy Smoking: Cigarettes, Less than 1pk/day Alcohol Use: None Drug Use: None General Adult EDM: Chief Complaint: HEARTBURN/GI DISTRESS HPI: HPI: 30-year-old male presents with chest pain. The patient had chest pains last night around 7 PM. This was after eating [place] food. After couple hours, the pain calm down so he did not come the emergency room. He woke up at 530 this morning with similar pain. He describes it as a cramping sensation. He tried Mylanta at home without relief. Patient has no cardiac history. He has a history of GERD and has not been taking his medications. He denies shortness of breath or diaphoresis. He has no other complaints this time. Review of Systems: Review of Systems: Constitutional: Denies fever or chills Eyes: Denies change in visual acuity HENT: Denies nasal congestion or sore throat Respiratory: Denies cough or shortness of breath Cardiovascular: Chest pain GI: Denies abdominal pain, nausea, vomiting, bloody stools or diarrhea : Denies dysuria Musculoskeletal: Denies back pain or joint pain Integument: Denies rash Neurologic: Denies headache, focal weakness or sensory changes Endocrine: Denies polyuria or polydipsia Lymphatic: Denies swollen glands Psychiatric: Denies depression or anxiety Current Medications: Current Meds: Current Medications Medications (Trade) Dose Ordered Sig/Lionel Start Time Stop Time Status Last Admin Dose Admin Famotidine (Pepcid Vial) 20 mg 1X ONCE 02/10/21 07:00 02/10/21 07:01 DC 02/10/21 07:14 20 MG Multi-Ingredient Mouthwash/Gargle (Gi Cocktail) 20 ml 1X ONCE 02/10/21 07:00 02/10/21 07:01 DC 02/10/21 07:14 20 ML Pantoprazole Sodium (Protonix Vial) 40 mg 1X ONCE 02/10/21 07:00 02/10/21 07:01 DC 02/10/21 07:14 40 MG Sodium Chloride 1,000 ml @ 1,000 mls/hr 1X ONCE 02/10/21 07:00 02/10/21 07:59 DC 02/10/21 07:14 1,000 MLS/HR Allergies: Allergies: Allergies Coded Allergies Type Severity Reaction Last Updated Verified doxycycline Allergy Severe Hives 02/03/21 Yes Penicillins Allergy Intermediate 02/03/21 Yes amoxicillin Allergy Intermediate rash 02/03/21 No clavulanic acid Allergy Intermediate 02/03/21 No sulfamethoxazole Allergy Intermediate 02/03/21 Yes trimethoprim Allergy Intermediate 02/03/21 Yes Physical Exam: PE: Constitutional: Well developed, well nourished, obese, no acute distress, non- toxic appearance. [] HENT: Normocephalic, atraumatic, bilateral external ears normal, oropharynx moist, no oral exudates, nose normal. [] Eyes: PERRLA, EOMI, conjunctiva normal, no discharge. [] Neck: Normal range of motion, no tenderness, supple, no stridor. [] Cardiovascular: Heart rate 89, regular rhythm, no murmur [] Lungs & Thorax: Bilateral breath sounds clear to auscultation [] Abdomen: Bowel sounds normal, soft, no tenderness, no masses, no pulsatile masses. [] Skin: Warm, dry, no erythema, no rash. [] Back: No tenderness, no CVA tenderness. [] Extremities: No tenderness, no cyanosis, no clubbing, ROM intact, no edema. [] Neurologic: Alert and oriented X 3, normal motor function, normal sensory function, no focal deficits noted. [] Psychologic: Affect normal, judgement normal, mood normal. [] Current Patient Data: Labs: Laboratory Tests Test 02/10/21 07:05 White Blood Count 12.0 x10^3/uL (4.0-11.0) H Red Blood Count 5.09 x10^6/uL (4.30-5.70) Hemoglobin 14.6 g/dL (13.0-17.5) Hematocrit 44.1 % (39.0-53.0) Mean Corpuscular Volume 87 fL (79-100) Mean Corpuscular Hemoglobin 29 pg (25-35) Mean Corpuscular Hemoglobin Concent 33 g/dL (31-37) Red Cell Distribution Width 13.7 % (11.5-14.5) Platelet Count 352 x10^3/uL (140-400) Neutrophils (%) (Auto) 57 % (31-73) Lymphocytes (%) (Auto) 32 % (24-48) Monocytes (%) (Auto) 8 % (0-9) Eosinophils (%) (Auto) 2 % (0-3) Basophils (%) (Auto) 1 % (0-3) Neutrophils # (Auto) 6.9 x10^3uL (1.8-7.7) Lymphocytes # (Auto) 3.8 x10^3/uL (1.0-4.8) Monocytes # (Auto) 0.9 x10^3/uL (0.0-1.1) Eosinophils # (Auto) 0.2 x10^3/uL (0.0-0.7) Basophils # (Auto) 0.1 x10^3/uL (0.0-0.2) Sodium Level 141 mmol/L (136-145) Potassium Level 3.8 mmol/L (3.5-5.1) Chloride Level 105 mmol/L (98-107) Carbon Dioxide Level 29 mmol/L (21-32) Anion Gap 7 (6-14) Blood Urea Nitrogen 14 mg/dL (8-26) Creatinine 1.0 mg/dL (0.7-1.3) Estimated GFR (Cockcroft-Gault) 87.7 BUN/Creatinine Ratio 14 (6-20) Glucose Level 107 mg/dL (70-99) H Calcium Level 8.5 mg/dL (8.5-10.1) Total Bilirubin 0.4 mg/dL (0.2-1.0) Aspartate Amino Transferase (AST) 17 U/L (15-37) Alanine Aminotransferase (ALT) 27 U/L (16-63) Alkaline Phosphatase 82 U/L (46-116) Troponin I Quantitative < 0.017 ng/mL (0-0.055) Total Protein 7.3 g/dL (6.4-8.2) Albumin 3.8 g/dL (3.4-5.0) Albumin/Globulin Ratio 1.1 (1.0-1.7) EKG: EKG: Sinus rhythm, rate 89, normal axis, no ST elevation or depression. [] Radiology/Procedures: Radiology/Procedures: [] Impressions: AP chest x-ray HISTORY: Chest pain. COMPARISON: Chest x-ray January 2021 FINDINGS: Heart size normal. Mediastinal silhouette is normal. No pneumothorax, pulmonary opacities or pleural effusions. The bones are unremarkable. IMPRESSION: No acute process. Electronically signed by: Alejandro Monsalve MD (02/10/2021 7:29 AM) [id number] DICTATED AND SIGNED BY: ALEJANDRO MONSALVE MD DATE: 02/10/21 07 CC: SILVESTRE BENAVIDES DO; CHELSEA OLSON MD ~MTH0 0 Heart Score: C/O Chest Pain: Yes HEART Score for Chest Pain: HEART Score for Chest Pain Response (Comments) Value History Slighlty/Non-Suspicious 0 ECG Normal 0 Age < 45 0 Risk Factors 1 or 2 Risk Factors 1 Troponin < Normal Limit 0 Total 1 Risk Factors: Risk Factors: DM, Current or recent (<one month) smoker, HTN, HLP, family history of CAD, obesity. Risk Scores: Score 0 - 3: 2.5% MACE over next 6 weeks - Discharge Home Score 4 - 6: 20.3% MACE over next 6 weeks - Admit for Clinical Observation Score 7 - 10: 72.7% MACE over next 6 weeks - Early Invasive Strategies Course & Med Decision Making: Course & Med Decision Making Pertinent Labs and Imaging studies reviewed. (See chart for details) The patient's EKG is unremarkable. His labs are unremarkable. His x-ray is unremarkable. For his discomfort, I given him Pepcid, Protonix, GI cocktail. This does not appear to be cardiopulmonary in nature. He is stable for discharge at this time. [] Dragon Disclaimer: Dragon Disclaimer: This electronic medical record was generated, in whole or in part, using a voice recognition dictation system. Departure Departure: Impression: Primary Impression: Chronic GERD Disposition: HOME / SELF CARE / HOMELESS Condition: STABLE Referrals: CHELSEA OLSON MD (PCP) Patient Instructions: Gastroesophageal Reflux Disease, Adult, [id number] SILVESTRE BENAVIDES DO Feb 10, 2021 08:15
--- NOTE | 2021-02-10 20:34 | EKG ---
[address] [address] Test Date: 2021-02-10 Test Time: 07:13:02 Pat Name: NACHO JEROME Department: Room: Gender: M Putaway Driver: RICARDO : 1990 Requested By: SILVESTRE BENAVIDES Order Number: [id number] Reading MD: Jaswant Katz Measurements Intervals [place] Rate: 89 P: 60 CO: 138 QRS: 68 QRSD: 90 T: 31 QT: 358 QTc: 437 Interpretive Statements SINUS RHYTHM LEFT ATRIAL ABNORMALITY Electronically Signed On 02-14-2021 12:49:43 CDT by Jaswant Katz
== END 2021-02-10 08:24 | disposition home or self-care (01) ==
LOC: ER 06:39
DX: K21.9 Gastro-esophageal reflux disease without esophagitis (principal); F17.210 Nicotine dependence, cigarettes, uncomplicated; Z88.0 Allergy status to penicillin; Z88.1 Allergy status to other antibiotic agents
CPT/HCPCS: 36415; 71045; 80053; 84484; 85025; 93005; 96361; 96374; 96375; 99284; C9113; J3490; J7030

== ENCOUNTER 2021-03-10 03:47 | Emergency (ER) | payer OTHER ==
[~2021-03-10] VITALS: Ht 177.8 cm; Wt 117.5 kg
[~2021-03-10 03:47] MED LIST changes: -CYCL-331 PO; +CYCL10TA19 PO; +DICY20TA PO; -DICY20TA3 PO
[2021-03-10 03:57] VITALS: BP 134/75
--- NOTE | 2021-03-10 04:59 | PHYS DOC ---
Past History Past Medical History: Anxiety, Bronchitis, GERD, Other Additional Past Medical Histor: Tachycardia Past Surgical History: Appendectomy Smoking: Cigarettes, Less than 1pk/day Alcohol Use: None Drug Use: None Adult General Chief Complaint Chief Complaint: NAUSEA/VOMITING/DIARRHEA HPI HPI Patient is an otherwise healthy 30-year-old male who presents to the emergency department with 3 episodes of nonbloody nonbilious emesis after drinking about 9 alcoholic drinks earlier this afternoon. States he quit drinking at about 11 PM when he started feeling nauseous. States that over the course of the day he had about 6 beers and 3 mixed drinks. States he had a little bit to eat but not much. Denies any other drug use. Denies any recent traumas, travels, illnesses, fevers, chest pain, shortness of breath, dysuria, hematuria, diarrhea or blood in the stool. States he thinks he just overdid it a little bit. Review of Systems Review of Systems Review of systems otherwise unremarkable except noted in HPI Allergies Allergies Allergies Coded Allergies Type Severity Reaction Last Updated Verified doxycycline Allergy Severe Hives 02/03/21 Yes Penicillins Allergy Intermediate 02/03/21 Yes amoxicillin Allergy Intermediate rash 02/03/21 No clavulanic acid Allergy Intermediate 02/03/21 No sulfamethoxazole Allergy Intermediate 02/03/21 Yes trimethoprim Allergy Intermediate 02/03/21 Yes Physical Exam Physical Exam Constitutional: Well developed, well nourished, no acute distress, non-toxic appearance. [] HENT: Normocephalic, atraumatic, oropharynx moist, no oral exudates, Eyes: conjunctiva normal, no discharge. [] Neck: Normal range of motion, no tenderness, supple, no stridor. [] Cardiovascular:Heart rate regular rhythm, no murmur [] Lungs & Thorax: Bilateral breath sounds clear to auscultation [] Abdomen: soft, no tenderness, no masses, no pulsatile masses. [] Skin: Warm, dry, no erythema, no rash. [] Back: no CVA tenderness. [] Extremities: No tenderness, ROM intact, no edema. [] Neurologic: Alert and oriented X 3, no focal deficits noted. [] Psychologic: Affect normal, judgement normal, mood normal. Current Patient Data Vital Signs Vital Signs Date Time Temp Pulse Resp B/P (MAP) Pulse Ox O2 Delivery O2 Flow Rate FiO2 03/10/21 03:57 98.6 106 18 134/75 (94) 98 Room Air EKG EKG [] Radiology/Procedures Radiology/Procedures [] Heart Score C/O Chest Pain: No Risk Factors: Risk Factors: DM, Current or recent (<one month) smoker, HTN, HLP, family history of CAD, obesity. Risk Scores: Risk Factors: DM, Current or recent (<one month) smoker, HTN, HLP, family history of CAD, obesity. Course & Med Decision Making Course & Med Decision Making Patient is a 30-year-old male who presents with nausea and vomiting after ingesting approximately 9 alcoholic drinks over several hours Initial vital signs notable for tachycardia which resolved in the ED have to rest. Patient denied need for pain medicine or nausea medicine. After approximately 1 hour in the emergency department patient stated he was feeling better, nausea resolved and was p.o. challenged successfully with water and crackers. Discussed all findings with patient and advised to try to avoid binge drinking as that can cause health problems including some of the symptoms that he had here today. Advised to try to eat food in between drinks and try to only have approximately 1 drink an hour. Advised tried to not go over 2 drinks a day. Advised to follow-up with primary care physician. Gave return precautions to the ED. Patient grateful, verbalized understanding and agreed with plan of discharge. [] Dragon Disclaimer Dragon Disclaimer This electronic medical record was generated, in whole or in part, using a voice recognition dictation system. Departure Departure: Disposition: HOME / SELF CARE / HOMELESS Condition: GOOD Referrals: CHELSEA OLSON MD (PCP) Patient Instructions: Alcohol Intoxication, Nausea and Vomiting Additional Instructions: Thank you for coming into the emergency department tonight and allowing us to take care of you. Please read the attached information carefully. As we discussed please try to cease binge drinking and limit your alcohol intake and be sure to take in plenty of nutrition and fluids while you are drinking. Please try to limit your drinking to 2 a day and try not to drink every day. Please follow-up with your primary care physician when you can to set up a follow-up visit. Please come back with new or concerning symptoms as we discussed. NUHA GARCIA MD Mar 10, 2021 04:59
== END 2021-03-10 05:11 | disposition home or self-care (01) ==
LOC: ER 03:47
DX: R11.2 Nausea with vomiting, unspecified (principal); F41.9 Anxiety disorder, unspecified; K21.9 Gastro-esophageal reflux disease without esophagitis; F17.210 Nicotine dependence, cigarettes, uncomplicated; Z90.89 Acquired absence of other organs; Z88.1 Allergy status to other antibiotic agents; Z88.0 Allergy status to penicillin; Z88.2 Allergy status to sulfonamides
CPT/HCPCS: 99281

== ENCOUNTER 2021-03-29 16:27 | Observation (INO) | payer OTHER ==
[~2021-03-29] VITALS: Ht 177.8 cm; Wt 119.3 kg
--- NOTE | 2021-03-29 16:53 | EKG ---
[address] [address] Test Date: 2021-03-29 Test Time: 16:46:25 Pat Name: NACHO JEROME Department: Room: Gender: M Compliance Review Specialist: DELANEY : 1990 Requested By: SILVESTRE BENAVIDES Order Number: [id number] Reading MD: Jaswant Katz Measurements Intervals [place] Rate: 121 P: 39 NC: 132 QRS: 80 QRSD: 90 T: 43 QT: 322 QTc: 460 Interpretive Statements SINUS TACHYCARDIA Electronically Signed On 03-31-2021 7:20:32 WIRELESS ENGINEER by Jaswant Katz
--- NOTE | 2021-03-29 17:01 | PHYS DOC ---
Past History Past Medical History: Anxiety, Bronchitis, GERD, Other Additional Past Medical Histor: Tachycardia (SILVESTRE BENAVIDES DO) Past Surgical History: Appendectomy (SILVESTRE BENAVIDES DO) Smoking: Cigarettes, Less than 1pk/day Alcohol Use: Rarely Drug Use: None (SILVESTRE BENAVIDES DO) General Adult EDM: Chief Complaint: Palpitations HPI: HPI: 30-year-old male presents emergency room with palpitations. The patient was feeling a little anxious earlier today so he took a 1 mg clonazepam. 2 hours later he was taking a shower he began to feel hot and flushed and like he had a rapid heartbeat. He tried to lay down and get it to go away but it did not. He decided come in for evaluation. He states being evaluated for this multiple times in the past. He is scheduled for an echocardiogram next week. He has done an event monitor that was inconclusive. He has no official cardiac diagnosis. He does have as needed clonazepam for anxiety. He denies fever or chills. He had an episode of epigastric pain but that has resolved at this time. (SILVESTRE BENAVIDES DO) Review of Systems: Review of Systems: Constitutional: Denies fever or chills Eyes: Denies change in visual acuity HENT: Denies nasal congestion or sore throat Respiratory: Denies cough or shortness of breath Cardiovascular: Palpitations GI: Denies abdominal pain, nausea, vomiting, bloody stools or diarrhea : Denies dysuria Musculoskeletal: Denies back pain or joint pain Integument: Denies rash Neurologic: Denies headache, focal weakness or sensory changes Endocrine: Denies polyuria or polydipsia Lymphatic: Denies swollen glands Psychiatric: anxiety (SILVESTRE BENAVIDES DO) Allergies: Allergies: Allergies Coded Allergies Type Severity Reaction Last Updated Verified doxycycline Allergy Severe Hives 03/29/21 Yes Penicillins Allergy Intermediate 03/29/21 Yes amoxicillin Allergy Intermediate rash 03/29/21 No clavulanic acid Allergy Intermediate 03/29/21 No sulfamethoxazole Allergy Intermediate 03/29/21 Yes trimethoprim Allergy Intermediate 03/29/21 Yes (SILVESTRE BENAVIDES DO) Physical Exam: PE: Constitutional: Well developed, well nourished, obese, no acute distress, non- toxic appearance. [] HENT: Normocephalic, atraumatic, bilateral external ears normal, oropharynx moist, no oral exudates, nose normal. [] Eyes: PERRLA, EOMI, conjunctiva normal, no discharge. [] Neck: Normal range of motion, no tenderness, supple, no stridor. [] Cardiovascular: Heart rate 121, regular rhythm, no murmur [] Lungs & Thorax: Bilateral breath sounds clear to auscultation [] Abdomen: Bowel sounds normal, soft, no tenderness, no masses, no pulsatile masses. [] Skin: Warm, dry, no erythema, no rash. [] Back: No tenderness, no CVA tenderness. [] Extremities: No tenderness, no cyanosis, no clubbing, ROM intact, no edema. [] Neurologic: Alert and oriented X 3, normal motor function, normal sensory funct ion, no focal deficits noted. [] Psychologic: Affect normal, judgement normal, mood normal. [] (SILVESTRE BENAVIDES DO) Current Patient Data: Vital Signs: Vital Signs Date Time Temp Pulse Resp B/P (MAP) Pulse Ox O2 Delivery O2 Flow Rate FiO2 03/29/21 16:41 98.4 126 13 153/83 (106) 98 Room Air (SILVESTRE BENAVIDES DO) EKG: EKG: Sinus rhythm, rate 121, normal axis, no ST elevation or depression. [] (SILVESTRE BENAVIDES DO) EKG: My interpretation second EKG shows a sinus tachycardia 101 bpm. No other acute morphology. Overall morphology is unchanged from previous EKG at 1646 hrs. Time of this EKG is 2006 hrs. (SHABANA PINON MD) Radiology/Procedures: Radiology/Procedures: [] Impressions: XR CHEST 1V CLINICAL INDICATIONS: Reason: Palpitations / Spl. Instructions: / History: COMPARISON: February 10, 2021. Findings: Mild bilateral interstitial pulmonary edema is seen. This is more prominent within the lower lung zones. No lung consolidation or pleural effusion or pneumothorax is apparent otherwise. The heart size, pulmonary vasculature, mediastinum and both maurilio are unremarkable. IMPRESSION: Mild bilateral interstitial pulmonary edema. Electronically signed by: Tee Obrien MD (03/29/2021 5:17 PM) [id number] DICTATED AND SIGNED BY: TEE OBRIEN MD DATE: 03/29/21 1716 CC: SILVESTRE BENAVIDES DO; CHELSEA OLSON MD ~MTH0 0 (SILVESTRE BENAVIDES DO) Heart Score: C/O Chest Pain: No Risk Factors: Risk Factors: DM, Current or recent (<one month) smoker, HTN, HLP, family history of CAD, obesity. Risk Scores: Score 0 - 3: 2.5% MACE over next 6 weeks - Discharge Home Score 4 - 6: 20.3% MACE over next 6 weeks - Admit for Clinical Observation Score 7 - 10: 72.7% MACE over next 6 weeks - Early Invasive Strategies (SILVESTRE BENAVIDES DO) Course & Med Decision Making: Course & Med Decision Making Pertinent Labs and Imaging studies reviewed. (See chart for details) The patient's EKG is unremarkable except for sinus tachycardia with a rate of 121. I have ordered a liter of normal saline. CBC shows a slightly elevated white count of 13. Chest x-ray shows mild bilateral interstitial edema. I will order proBNP. The patient's been given 1 mg of Ativan IV for his anxiety. The rest of his work-up is pending. I signed the patient out to Dr. Pinon at 1800. [] (SILVESTRE BENAVIDES DO) Course & Med Decision Making See Dr. Benavides's chart for details prior to shift change Discussed presentation, testing and treatment plan with Dr. Melvin. Will admit for additional trops and start on beta-kedar and cover of Lovenox. Impression: 1. Recurrent episodes of dysrhythmia and tachycardia 2. Mild elevation in leukocytosis 13.1 3. Hx. GERD 4. Hx. Tobacco Use (SHABANA PINON MD) Dragon Disclaimer: Dragon Disclaimer: This electronic medical record was generated, in whole or in part, using a voice recognition dictation system. (SILVESTRE BENAVIDES DO) Departure Departure: Referrals: CHELSEA OLSON MD (PCP) Dragon Disclaimer This chart was dictated in whole or in part using Voice Recognition software in a busy, high-work load, and often noisy Emergency Department environment. It may contain unintended and wholly unrecognized errors or omissions. (SHABANA PINON MD) SILVESTRE BENAVIDES DO Mar 29, 2021 17:01 SHABANA PINON MD Mar 29, 2021 21:35
[2021-03-29 17:18] LABS: BASO # 0.1 x10^3/uL (0.0-0.2); BASO % 1 % (0-3); EOS # 0.3 x10^3/uL (0.0-0.7); EOS % 3 % (0-3); HEMOGLOBIN 14.9 g/dL (13.0-17.5); LYMPH # 3.3 x10^3/uL (1.0-4.8); LYMPH % 25 % (24-48); MEAN CORPUSCULAR HEMOGLOBIN 29 pg (25-35); MEAN CORPUSCULAR HGB CONC 33 g/dL (31-37); MEAN CORPUSCULAR VOLUME 87 fL (79-100); MONO # 1.3 x10^3/uL (0.0-1.1); MONO % 10 % (0-9); NEUT # 8.1 x10^3uL (1.8-7.7); NEUT % 62 % (31-73); PLATELET COUNT 393 x10^3/uL (140-400); RED BLOOD COUNT 5.19 x10^6/uL (4.30-5.70); RED CELL DISTRIBUTION WIDTH 13.7 % (11.5-14.5); WHITE BLOOD COUNT 13.1 x10^3/uL (4.0-11.0)
--- NOTE | 2021-03-29 17:20 | RAD ---
XR CHEST 1V CLINICAL INDICATIONS: Reason: Palpitations / Spl. Instructions: / History: COMPARISON: February 10, 2021. Findings: Mild bilateral interstitial pulmonary edema is seen. This is more prominent within the lowe r lung zones. No lung consolidation or pleural effusion or pneumothorax is apparent otherwise. The he art size, pulmonary vasculature, mediastinum and both maurilio are unremarkable. IMPRESSION: Mild bilateral interstitial pulmonary edema. Electronically signed by: Bonilla Obrien MD (03/29/2021 5:17 PM) [id number]
[2021-03-29 17:36] LABS: CALCIUM 9.5 mg/dL (8.5-10.1); CREATININE 1.1 mg/dL (0.7-1.3); GFR 78.6
[2021-03-29 17:41] LABS: ALBUMIN 4.2 g/dL (3.4-5.0); ALBUMIN/GLOBULIN RATIO 1.2 (1.0-1.7); TOTAL BILIRUBIN 0.2 mg/dL (0.2-1.0); TOTAL PROTEIN 7.7 g/dL (6.4-8.2)
[2021-03-29 18:09] LABS: BARBITURATES NEG (NEG); BENZODIAZEPINES NEG (NEG); CANNABINOIDS NEG (NEG); COCAINE NEG (NEG); METHADONE NEG (NEG); OPIATES NEG (NEG); PHENCYCLIDINE NEG (NEG)
[2021-03-29 18:13] LABS: AMPHETAMINE/METHAMPHETAMINE NEG (NEG)
[2021-03-29 18:38] LABS: BACTERIA,URINE 0 /HPF (0-FEW); BILIRUBIN,URINE NEG (NEG); CLARITY,URINE CLEAR; COLOR,URINE YELLOW; GLUCOSE,URINE NEG (NEG); NITRITE,URINE NEG (NEG); RBC,URINE OCC /HPF (0-2); UROBILINOGEN,URINE 0.2 mg/dL (0.2 mg/dL); WBC,URINE 0 /HPF (0-4)
[2021-03-29] MEDS ORDERED: METOPROLOL SUCC 24HR ER 25 MG TAB.ER.24H. PO ONE (20:15)
--- NOTE | 2021-03-29 20:56 | EKG ---
[address] [address] Test Date: 2021-03-29 Test Time: 20:06:54 Pat Name: NACHO JEROME Department: Room: Gender: M Digital Analyst: : 1990 Requested By: SHABANA TINSLEY Order Number: [id number] Reading MD: Jaswant Katz Measurements Intervals [place] Rate: 101 P: 49 SD: 142 QRS: 55 QRSD: 88 T: 31 QT: 330 QTc: 429 Interpretive Statements SINUS TACHYCARDIA Electronically Signed On 03-31-2021 7:19:58 AC/DC REWINDER by Jaswant Katz
[2021-03-29] MEDS ORDERED: ENOXAPARIN ** NOTE DOSE ** SYRINGE SQ ONE (21:30)
[2021-03-29] MEDS ORDERED: MORPHINE SULFATE 10 MG/ML SYRINGE. SQ ONE (22:15)
[2021-03-29] MEDS ORDERED: PANTOPRAZOLE 40 MG TABLET. PO ONE ×2 (22:45→23:00)
[2021-03-29] MEDS ORDERED: LORazepam 1 MG TABLET PO ONE (23:00)
[2021-03-29] MEDS ORDERED: ACETAMINOPHEN 325 MG TABLET PO PRN (23:15)
[2021-03-29] MEDS ORDERED: ONDANSETRON PF 4 MG/2 ML VIAL. IVP PRN (23:15)
[2021-03-30] MEDS ORDERED: SUCRALFATE 1 GM TABLET. PO ONE
[2021-03-30] MEDS ORDERED: MAGNESIUM HYDROXIDE 2,400 MG/30 ML ORAL.SUSP. PO ONE
[2021-03-30] MEDS ORDERED: FAMOTIDINE 20 MG/2 ML VIAL IVP ONE
[2021-03-30 02:08] VITALS: BP 114/77
--- NOTE | 2021-03-30 02:30 | NUR ---
The patient, NACHO JEROME, 30 y/o, M admitted by SNOW MO MD, was given written information regarding hospital policies, unit procedures and contact persons. Valuables were checked and left with the patient. Medical history, medications and symptoms reviewed. Assessments performed. Pt questions answered and pt oriented to room. Pt denies pain or discomfort but expresses anxiety. Will continue to monitor.
[2021-03-30] MEDS ORDERED: PANT20TA58 PO (03:59)
[2021-03-30] MEDS ORDERED: clonazePAM 0.5 MG TABLET PO PRN (04:45)
[2021-03-30] MEDS ORDERED: PANTOPRAZOLE 40 MG TABLET. PO SCH (07:30)
[2021-03-30 07:58] LABS: BASO % 0 % (0-3); EOS # 0.2 x10^3/uL (0.0-0.7); EOS % 2 % (0-3); HEMOGLOBIN 14.4 g/dL (13.0-17.5); LYMPH # 2.9 x10^3/uL (1.0-4.8); LYMPH % 30 % (24-48); MEAN CORPUSCULAR HEMOGLOBIN 29 pg (25-35); MEAN CORPUSCULAR HGB CONC 33 g/dL (31-37); MEAN CORPUSCULAR VOLUME 88 fL (79-100); MONO # 1.2 x10^3/uL (0.0-1.1); MONO % 12 % (0-9); NEUT # 5.5 x10^3uL (1.8-7.7); NEUT % 56 % (31-73); PLATELET COUNT 348 x10^3/uL (140-400); RED BLOOD COUNT 5.02 x10^6/uL (4.30-5.70); RED CELL DISTRIBUTION WIDTH 13.9 % (11.5-14.5); WHITE BLOOD COUNT 9.8 x10^3/uL (4.0-11.0)
[2021-03-30] MEDS ORDERED: IPRATRPIUM/ALBUTEROL 0.5/2.5MG 3 ML NEBU. NEB SCH (08:00)
[2021-03-30] MEDS ORDERED: ASPIRIN CHEWABLE 81 MG TABLET. PO SCH (08:00)
[2021-03-30 08:29] LABS: CALCIUM 8.5 mg/dL (8.5-10.1); CREATININE 1.1 mg/dL (0.7-1.3); GFR 78.6; POTASSIUM 4.1 mmol/L (3.5-5.1)
[2021-03-30] MEDS ORDERED: METOPROLOL TART IMMED RELEASE 50 MG TABLET PO SCH (09:00)
[2021-03-30 10:47] VITALS: BP 114/75
--- NOTE | 2021-03-30 12:40 | NUR ---
PATIENT IS LEVING AMA. PT STATED HE DID NOT WANT TO WAIT FOR DR MO TO COME IN AND DISCHARGE HIM. PTS IV IS REMOVED AND TELE MONITOR D/C'D. PT SIGNED AMA FORM AND WAS ESCORTED OFF OF UNIT ACCOMPANIED BY STAFF.
--- NOTE | 2021-03-30 15:13 | PDOC2 ---
CONSULT DOS: DATE: 03/30/21 TIME: 15:07 Reason for Consult: Tachycardia Referring Physician: Dr. Melvin Chief Complaint Palpitations and rapid heart rate. Source: Chart review, Patient Problem List Problems Medical Problems: (1) Tachyarrhythmia Status: Acute History of Present Illness The patient is a 30-year-old male who presented to the emergency room with episodes of increasing palpitations and mild atypical chest pressure. His initial EKG showed a sinus rhythm with no ischemic changes. Chest x-ray was read as mild bilateral interstitial edema. The patient has remained comfortable overnight. He has had no significant bradycardia or tachyarrhythmias. Troponin has been within normal limits x3. This morning he is feeling significantly better. He does have a history of anxiety and has had multiple ER visits over the past year. He has previously been seen at [facility] cardiology and reports that he is scheduled for an echocardiogram there in approximately 1 month. Cardiovascular: HTN GI: GERD Psych: Anxiety Past Surgical History: Appendectomy Family History: Hypertension Smoke: <1 pack per day ALCOHOL: occassional Current Medications Current Medications Lorazepam (Ativan Inj) 1 mg 1X ONCE IVP Last administered on 03/29/21at 17:34; Start 03/29/21 at 17:30; Stop 03/29/21 at 17:31; Status DC Metoprolol Succinate (Toprol Xl) 50 mg 1X ONCE PO Last administered on 03/29/21at 20:57; Start 03/29/21 at 20:15; Stop 03/29/21 at 20:16; Status DC Enoxaparin Sodium (Lovenox 120mg Syringe) 120 mg 1X ONCE SQ Last administered on 03/29/21at 22:30; Start 03/29/21 at 21:30; Stop 03/29/21 at 21:35; Status DC Morphine Sulfate (Morphine 10mg Syringe) 10 mg 1X ONCE SQ ; Start 03/29/21 at 22:15; Stop 03/29/21 at 22:16; Status DC Pantoprazole Sodium (Protonix) 40 mg 1X ONCE PO Last administered on 03/30/21at 00:34; Start 03/29/21 at 23:00; Stop 03/29/21 at 23:01; Status DC Lorazepam (Ativan Inj) 1 mg 1X ONCE IVP ; Start 03/29/21 at 22:45; Stop 03/29/21 at 22:46; Status DC Pantoprazole Sodium (Protonix) 40 mg 1X ONCE PO ; Start 03/29/21 at 22:45; Stop 03/29/21 at 22:46; Status UNV Lorazepam (Ativan) 2 mg 1X ONCE PO Last administered on 03/30/21at 00:34; Start 03/29/21 at 23:00; Stop 03/29/21 at 23:01; Status DC Ondansetron HCl (Zofran) 4 mg PRN Q4HRS PRN IVP NAUSEA/VOMITING; Start 03/29/21 at 23:15; Stop 03/30/21 at 12:49; Status DC Acetaminophen (Tylenol) 650 mg PRN Q4HRS PRN PO FEVER > 100.3'F; Start 03/29/21 at 23:15; Stop 03/30/21 at 12:49; Status DC Albuterol/ Ipratropium (Duoneb) 3 ml RTQID NEB ; Start 03/30/21 at 08:00; Stop 03/30/21 at 12:49; Status DC Aspirin (Aspirin Chewable) 81 mg [id number] PO Last administered on 03/30/21at 08:07; Start 03/30/21 at 08:00; Stop 03/30/21 at 12:49; Status DC Metoprolol Tartrate (Lopressor) 50 mg BID PO Last administered on 03/30/21at 08:07; Start 03/30/21 at 09:00; Stop 03/30/21 at 12:49; Status DC Famotidine (Pepcid Vial) 20 mg 1X ONCE IVP Last administered on 03/30/21at 01:02; Start 03/30/21 at 00:00; Stop 03/30/21 at 00:01; Status DC Magnesium Hydroxide (Milk Of Magnesia) 2,400 mg 1X ONCE PO Last administered on 03/30/21at 01:02; Start 03/30/21 at 00:00; Stop 03/30/21 at 00:01; Status DC Sucralfate (Carafate) 1 gm 1X ONCE PO Last administered on 03/30/21at 01:02; Start 03/30/21 at 00:00; Stop 03/30/21 at 00:01; Status DC Clonazepam (KlonoPIN) 0.5 mg PRN Q8HRS PRN PO ANXIETY Last administered on 03/30/21at 08:07; Start 03/30/21 at 04:45; Stop 03/30/21 at 12:49; Status DC Pantoprazole Sodium (Protonix) 40 mg BIDBFRMEAL PO Last administered on 03/30/21at 08:07; Start 03/30/21 at 07:30; Stop 03/30/21 at 12:49; Status DC Active Scripts Active Clonazepam 0.5 Mg Tablet 0.5 Mg PO Q8HRS PRN Reported Protonix (Pantoprazole Sodium) 20 Mg Tablet.dr 40 Mg PO BID Allergies: Coded Allergies: doxycycline (Verified Allergy, Severe, Hives, 03/29/21) Penicillins (Verified Allergy, Intermediate, 03/29/21) amoxicillin (Unverified Allergy, Intermediate, rash, 03/29/21) rocephin ok clavulanic acid (Unverified Allergy, Intermediate, 03/29/21) sulfamethoxazole (Verified Allergy, Intermediate, 03/29/21) trimethoprim (Verified Allergy, Intermediate, 03/29/21) PSYCHOLOGICAL ROS: YES: Anxiety Respiratory: YES: SOB with excertion General: No acute distress HEENT: Atraumatic Lungs: Clear to auscultation Heart: Regular rate Abdomen: Normal bowel sounds VITALS Vital Signs Date Time Temp Pulse Resp B/P (MAP) Pulse Ox O2 Delivery O2 Flow Rate FiO2 03/30/21 10:47 97.2 70 20 114/75 (88) 95 Room Air Labs Laboratory Tests Test 03/29/21 16:55 03/29/21 17:26 03/29/21 18:08 03/29/21 20:10 White Blood Count 13.1 x10^3/uL (4.0-11.0) Red Blood Count 5.19 x10^6/uL (4.30-5.70) Hemoglobin 14.9 g/dL (13.0-17.5) Hematocrit 45.0 % (39.0-53.0) Mean Corpuscular Volume 87 fL (79-100) Mean Corpuscular Hemoglobin 29 pg (25-35) Mean Corpuscular Hemoglobin Concent 33 g/dL (31-37) Red Cell Distribution Width 13.7 % (11.5-14.5) Platelet Count 393 x10^3/uL (140-400) Neutrophils (%) (Auto) 62 % (31-73) Lymphocytes (%) (Auto) 25 % (24-48) Monocytes (%) (Auto) 10 % (0-9) Eosinophils (%) (Auto) 3 % (0-3) Basophils (%) (Auto) 1 % (0-3) Neutrophils # (Auto) 8.1 x10^3uL (1.8-7.7) Lymphocytes # (Auto) 3.3 x10^3/uL (1.0-4.8) Monocytes # (Auto) 1.3 x10^3/uL (0.0-1.1) Eosinophils # (Auto) 0.3 x10^3/uL (0.0-0.7) Basophils # (Auto) 0.1 x10^3/uL (0.0-0.2) Sodium Level 143 mmol/L (136-145) Potassium Level 4.0 mmol/L (3.5-5.1) Chloride Level 104 mmol/L (98-107) Carbon Dioxide Level 27 mmol/L (21-32) Anion Gap 12 (6-14) Blood Urea Nitrogen 12 mg/dL (8-26) Creatinine 1.1 mg/dL (0.7-1.3) Estimated GFR (Cockcroft-Gault) 78.6 BUN/Creatinine Ratio 11 (6-20) Glucose Level 121 mg/dL (70-99) Calcium Level 9.5 mg/dL (8.5-10.1) Total Bilirubin 0.2 mg/dL (0.2-1.0) Aspartate Amino Transf (AST/SGOT) 22 U/L (15-37) Alanine Aminotransferase (ALT/SGPT) 32 U/L (16-63) Alkaline Phosphatase 94 U/L (46-116) Troponin I High Sensitivity 5 ng/L (4-75) 15 ng/L (4-75) Total Protein 7.7 g/dL (6.4-8.2) Albumin 4.2 g/dL (3.4-5.0) Albumin/Globulin Ratio 1.2 (1.0-1.7) Urine Collection Type Clean catch Urine Color Yellow Urine Clarity Clear Urine pH 7.0 Urine Specific Cobden 1.015 Urine Protein Neg (NEG-TRACE) Urine Glucose (UA) Neg mg/dL (NEG) Urine Ketones (Stick) Neg mg/dL (NEG) Urine Blood Trace (NEG) Urine Nitrite Neg (NEG) Urine Bilirubin Neg (NEG) Urine Urobilinogen Dipstick 0.2 mg/dL (0.2 mg/dL) Urine Leukocyte Esterase Neg (NEG) Urine RBC Occ /HPF (0-2) Urine WBC 0 /HPF (0-4) Urine Bacteria 0 /HPF (0-FEW) Urine Opiates Screen Neg (NEG) Urine Methadone Screen Neg (NEG) Urine Barbiturates Neg (NEG) Urine Phencyclidine Screen Neg (NEG) Urine Amphetamine/Methamphetamine Neg (NEG) Urine Benzodiazepines Screen Neg (NEG) Urine Cocaine Screen Neg (NEG) Urine Cannabinoids Screen Neg (NEG) Urine Ethyl Alcohol (NEG) HP-Boq-B-Type Natriuretic Peptide 189 pg/mL (0-124) Test 03/29/21 21:56 03/30/21 00:35 03/30/21 02:52 03/30/21 02:55 D-Dimer (Leatha) 0.20 mg/L (0.00-0.50) Triglycerides Level 106 mg/dL (0-150) Cholesterol Level 189 mg/dL (0-200) LDL Cholesterol, Calculated 135 mg/dL (0-100) VLDL Cholesterol, Calculated 21 mg/dL (0-40) Non-HDL Cholesterol Calculated 156 mg/dL (0-129) HDL Cholesterol 33 mg/dL (40-60) Cholesterol/HDL Ratio 5.0 Troponin I High Sensitivity 9 ng/L (4-75) 10 ng/L (4-75) Coronavirus (COVID-19)(PCR) Not detected (NOT DETECTD) SARS-CoV-2 Antigen (Rapid) Negative (NEGATIVE) Test 03/30/21 06:55 White Blood Count 9.8 x10^3/uL (4.0-11.0) Red Blood Count 5.02 x10^6/uL (4.30-5.70) Hemoglobin 14.4 g/dL (13.0-17.5) Hematocrit 44.0 % (39.0-53.0) Mean Corpuscular Volume 88 fL (79-100) Mean Corpuscular Hemoglobin 29 pg (25-35) Mean Corpuscular Hemoglobin Concent 33 g/dL (31-37) Red Cell Distribution Width 13.9 % (11.5-14.5) Platelet Count 348 x10^3/uL (140-400) Neutrophils (%) (Auto) 56 % (31-73) Lymphocytes (%) (Auto) 30 % (24-48) Monocytes (%) (Auto) 12 % (0-9) Eosinophils (%) (Auto) 2 % (0-3) Basophils (%) (Auto) 0 % (0-3) Neutrophils # (Auto) 5.5 x10^3uL (1.8-7.7) Lymphocytes # (Auto) 2.9 x10^3/uL (1.0-4.8) Monocytes # (Auto) 1.2 x10^3/uL (0.0-1.1) Eosinophils # (Auto) 0.2 x10^3/uL (0.0-0.7) Basophils # (Auto) 0.0 x10^3/uL (0.0-0.2) Sodium Level 142 mmol/L (136-145) Potassium Level 4.1 mmol/L (3.5-5.1) Chloride Level 106 mmol/L (98-107) Carbon Dioxide Level 27 mmol/L (21-32) Anion Gap 9 (6-14) Blood Urea Nitrogen 13 mg/dL (8-26) Creatinine 1.1 mg/dL (0.7-1.3) Estimated GFR (Cockcroft-Gault) 78.6 Glucose Level 100 mg/dL (70-99) Calcium Level 8.5 mg/dL (8.5-10.1) Troponin I High Sensitivity 9 ng/L (4-75) Images Chest x-ray as above. Assessment/Plan 1. Palpitations and tachycardia. The patient is feeling significantly better today. His EKG shows no acute ischemic changes. His rate is normal this morning. Troponins have been within normal limits x3. We did discuss his tachycardia and his frequent ER visits. In this setting I believe an outpatient monitor would be appropriate. Patient states he had an outpatient monitor greater than 5 years ago. Would not add new medication at this time. Of note he is scheduled through [facility] for an echo in approximately 1 month. He was given the option of following up with [facility] but he would like to perform a outpatient monitor through our office and we will contact him Thursday. 2. Mild chest pressure. Patient also has a history of gastroesophageal reflux disease. We discussed discontinuation of alcohol and tobacco use. After the monitor will consider a possible stress test and this was discussed with the patient. Of note he has an echo scheduled through [facility] in later April. He is unsure whether he wishes to obtain this test. Will discuss more with the patient post outpatient monitoring. 3. Anxiety. Patient is followed by his primary service for this. 4. History of gastroesophageal reflux disease. Continue present treatment. RUSSELL HANKINS MD Mar 30, 2021 15:13
== END 2021-03-30 12:33 | disposition left against medical advice (07) ==
LOC: ER 16:27 → 1 SOUTH 23:05 → INTOOBSV 23:05
PROVIDERS: ADMIT Internal Medicine; ATTEND Internal Medicine
DX: I49.9 Cardiac arrhythmia, unspecified (principal); Z20.822 Contact with and (suspected) exposure to COVID-19; D72.829 Elevated white blood cell count, unspecified; I10 Essential (primary) hypertension; K21.9 Gastro-esophageal reflux disease without esophagitis; F41.9 Anxiety disorder, unspecified; J40 Bronchitis, not specified as acute or chronic; F17.210 Nicotine dependence, cigarettes, uncomplicated; R00.2 Palpitations; Z90.49 Acquired absence of other specified parts of digestive tract; Z79.82 Long term (current) use of aspirin; Z79.899 Other long term (current) drug therapy; Z98.890 Other specified postprocedural states
CPT/HCPCS: 36415; 71045; 80048; 80053; 80061; 80307; 81001; 83880; 84484; 85025; 85379; 87426; 93005; 96372; 96374; 96375; 99285; G0378; J1650; J2060; J3490; U0003; G0379

== ENCOUNTER 2021-04-11 09:48 | Emergency (ER) | payer OTHER ==
[~2021-04-11] VITALS: Ht 177.8 cm; Wt 117.0 kg
[~2021-04-11 09:48] MED LIST changes: +PANT20TA58 PO
[2021-04-11 10:03] VITALS: BP 147/90
[2021-04-11] MEDS ORDERED: IV NORMAL SALINE 1,000ML 1,000 ML IV ONE (10:30)
[2021-04-11] MEDS ORDERED: ONDANSETRON PF 4 MG/2 ML VIAL. IVP ONE (10:30)
[2021-04-11] MEDS ORDERED: KETOROLAC 30 MG/ML VIAL. IVP ONE (10:30)
[2021-04-11 11:12] LABS: BASO # 0.1 x10^3/uL (0.0-0.2); BASO % 1 % (0-3); CALCIUM 8.3 mg/dL (8.5-10.1); CREATININE 1.1 mg/dL (0.7-1.3); EOS # 0.3 x10^3/uL (0.0-0.7); EOS % 2 % (0-3); GFR 78.6; HEMATOCRIT 44.7 % (39.0-53.0); HEMOGLOBIN 14.8 g/dL (13.0-17.5); LYMPH # 2.1 x10^3/uL (1.0-4.8); LYMPH % 14 % (24-48); MEAN CORPUSCULAR HEMOGLOBIN 29 pg (25-35); MEAN CORPUSCULAR HGB CONC 33 g/dL (31-37); MEAN CORPUSCULAR VOLUME 86 fL (79-100); MONO # 1.2 x10^3/uL (0.0-1.1); MONO % 8 % (0-9); NEUT # 11.5 x10^3uL (1.8-7.7); NEUT % 76 % (31-73); PLATELET COUNT 373 x10^3/uL (140-400); POTASSIUM 3.6 mmol/L (3.5-5.1); RED BLOOD COUNT 5.21 x10^6/uL (4.30-5.70); RED CELL DISTRIBUTION WIDTH 14.2 % (11.5-14.5); WHITE BLOOD COUNT 15.1 x10^3/uL (4.0-11.0)
[2021-04-11 11:27] LABS: ALBUMIN 3.8 g/dL (3.4-5.0); TOTAL BILIRUBIN 0.5 mg/dL (0.2-1.0); TOTAL PROTEIN 7.5 g/dL (6.4-8.2)
--- NOTE | 2021-04-11 12:46 | PHYS DOC ---
Past History Past Medical History: Anxiety, Bronchitis, GERD, Other Additional Past Medical Histor: Tachycardia (RATNA THAKUR APRN) Past Surgical History: Appendectomy (RATNA THAKUR APRN) Smoking: Cigarettes, Less than 1pk/day Alcohol Use: Rarely Drug Use: None (RATNA THAKUR APRN) Adult General Chief Complaint Chief Complaint: MULTIPLE COMPLAINTS HPI HPI Patient is a 30-year-old male presents to the emergency department with concerns he may have contacted the stomach bug his son had 2 days ago. Patient reports his son was brought to the emergency department 2 nights ago for nausea, vomiting, diarrhea was diagnosed with a viral stomach bug. Patient reports this morning he has had several bouts of nausea, vomiting, and diarrhea. Patient denies seeing blood in his stool or in his urine, patient denies increased urinary frequency, urinary burning, or urinary pressure. Patient denies STI concerns. Patient complains of mild abdominal pain all over with nausea at this time. Patient reports he cannot keep any water or food down. Patient denies other physical complaints or physical concerns. (RATNA THAKUR APRN) Review of Systems Review of Systems 14 body systems of review of systems have been reviewed. See HPI for pertinent positives and negative responses, otherwise all other systems are negative, nonpertinent or noncontributory. Constitutional: Negative except as outlined in HPI above. Skin: Negative except as outlined in HPI above. Eyes: Negative except as outlined in HPI above. HENT: Negative except as outlined in HPI above. Respiratory: Negative except as outlined in HPI above. Cardiovascular: Negative except as outlined in HPI above. GI: Negative except as outlined in HPI above. : Negative except as outlined in HPI above. Musculoskeletal: Negative except as outlined in HPI above. Integument: Negative except as outlined in HPI above. Neurologic: Negative except as outlined in HPI above. Endocrine: Negative except as outlined in HPI above. Lymphatic: Negative except as outlined in HPI above. Psychiatric: Negative except as outlined in HPI above. (RATNA THAKUR APRN) Current Medications Current Medications Current Medications Medications (Trade) Dose Ordered Sig/Lionel Start Time Stop Time Status Last Admin Dose Admin Ketorolac Tromethamine (Toradol 30mg Vial) 30 mg 1X ONCE 04/11/21 10:30 04/11/21 10:35 DC 04/11/21 11:41 30 MG Ondansetron HCl (Zofran) 4 mg 1X ONCE 04/11/21 10:30 04/11/21 10:35 DC 04/11/21 11:41 4 MG Sodium Chloride 1,000 ml @ 1,000 mls/hr 1X ONCE 04/11/21 10:30 04/11/21 11:29 DC 04/11/21 10:30 1,000 MLS/HR (RATNA THAKUR APRN) Allergies Allergies Allergies Coded Allergies Type Severity Reaction Last Updated Verified doxycycline Allergy Severe Hives 03/29/21 Yes Penicillins Allergy Intermediate 03/29/21 Yes amoxicillin Allergy Intermediate rash 03/29/21 No clavulanic acid Allergy Intermediate 03/29/21 No sulfamethoxazole Allergy Intermediate 03/29/21 Yes trimethoprim Allergy Intermediate 03/29/21 Yes (RATNA THAKUR APRN) Physical Exam Physical Exam Constitutional: Well developed, well nourished, no acute distress, non-toxic appearance. 30-year-old male in no apparent distress. HENT: Normocephalic, atraumatic. Eyes: Conjunctiva normal, no discharge. Neck: Normal range of motion, no stridor. Cardiovascular: No cyanosis appreciated, distal cap refill less than 2 seconds. Lungs & Thorax: Patient is in no respiratory distress, no audible adventitious lung sounds appreciated. Abdomen: Mild tenderness exacerbated with palpation all 4 quadrants, however negative Ralph's point tenderness, negative rebound tenderness, negative psoas sign, negative Butler's sign, no bruising or skin discoloration of the abdomen appreciated, no abnormalities noted. Skin: Warm, dry, no erythema, no rash. Back: No tenderness, no deformities. Extremities: No tenderness, no cyanosis, no clubbing, ROM intact, no edema. Neurologic: Alert and oriented X 3, normal motor function, normal sensory function, no focal deficits noted. Psychologic: Affect normal, judgement normal, mood normal. (RATNA THAKUR APRN) Current Patient Data Vital Signs Vital Signs Date Time Temp Pulse Resp B/P (MAP) Pulse Ox O2 Delivery O2 Flow Rate FiO2 04/11/21 10:03 98 20 147/90 (109) Room Air Lab Results Laboratory Tests Test 04/11/21 10:38 White Blood Count 15.1 x10^3/uL Red Blood Count 5.21 x10^6/uL Hemoglobin 14.8 g/dL Hematocrit 44.7 % Mean Corpuscular Volume 86 fL Mean Corpuscular Hemoglobin 29 pg Mean Corpuscular Hemoglobin Concent 33 g/dL Red Cell Distribution Width 14.2 % Platelet Count 373 x10^3/uL Neutrophils (%) (Auto) 76 % Lymphocytes (%) (Auto) 14 % Monocytes (%) (Auto) 8 % Eosinophils (%) (Auto) 2 % Basophils (%) (Auto) 1 % Neutrophils # (Auto) 11.5 x10^3uL Lymphocytes # (Auto) 2.1 x10^3/uL Monocytes # (Auto) 1.2 x10^3/uL Eosinophils # (Auto) 0.3 x10^3/uL Basophils # (Auto) 0.1 x10^3/uL Sodium Level 141 mmol/L Potassium Level 3.6 mmol/L Chloride Level 106 mmol/L Carbon Dioxide Level 27 mmol/L Anion Gap 8 Blood Urea Nitrogen 17 mg/dL Creatinine 1.1 mg/dL Estimated GFR (Cockcroft-Gault) 78.6 BUN/Creatinine Ratio 15 Glucose Level 103 mg/dL Calcium Level 8.3 mg/dL Total Bilirubin 0.5 mg/dL Aspartate Amino Transf (AST/SGOT) 17 U/L Alanine Aminotransferase (ALT/SGPT) 26 U/L Alkaline Phosphatase 81 U/L Total Protein 7.5 g/dL Albumin 3.8 g/dL Albumin/Globulin Ratio 1.0 Lipase 88 U/L Current Medications Medications (Trade) Dose Ordered Sig/Lionel Route PRN Reason Start Time Stop Time Status Last Admin Dose Admin Sodium Chloride 1,000 ml @ 1,000 mls/hr 1X ONCE IV 04/11/21 10:30 04/11/21 11:29 DC 04/11/21 10:30 Ketorolac Tromethamine (Toradol 30mg Vial) 30 mg 1X ONCE IVP 04/11/21 10:30 04/11/21 10:35 DC 04/11/21 11:41 Ondansetron HCl (Zofran) 4 mg 1X ONCE IVP 04/11/21 10:30 04/11/21 10:35 DC 04/11/21 11:41 Laboratory Tests Test 04/11/21 10:38 White Blood Count 15.1 x10^3/uL (4.0-11.0) H Red Blood Count 5.21 x10^6/uL (4.30-5.70) Hemoglobin 14.8 g/dL (13.0-17.5) Hematocrit 44.7 % (39.0-53.0) Mean Corpuscular Volume 86 fL (79-100) Mean Corpuscular Hemoglobin 29 pg (25-35) Mean Corpuscular Hemoglobin Concent 33 g/dL (31-37) Red Cell Distribution Width 14.2 % (11.5-14.5) Platelet Count 373 x10^3/uL (140-400) Neutrophils (%) (Auto) 76 % (31-73) H Lymphocytes (%) (Auto) 14 % (24-48) L Monocytes (%) (Auto) 8 % (0-9) Eosinophils (%) (Auto) 2 % (0-3) Basophils (%) (Auto) 1 % (0-3) Neutrophils # (Auto) 11.5 x10^3uL (1.8-7.7) H Lymphocytes # (Auto) 2.1 x10^3/uL (1.0-4.8) Monocytes # (Auto) 1.2 x10^3/uL (0.0-1.1) H Eosinophils # (Auto) 0.3 x10^3/uL (0.0-0.7) Basophils # (Auto) 0.1 x10^3/uL (0.0-0.2) Sodium Level 141 mmol/L (136-145) Potassium Level 3.6 mmol/L (3.5-5.1) Chloride Level 106 mmol/L (98-107) Carbon Dioxide Level 27 mmol/L (21-32) Anion Gap 8 (6-14) Blood Urea Nitrogen 17 mg/dL (8-26) Creatinine 1.1 mg/dL (0.7-1.3) Estimated GFR (Cockcroft-Gault) 78.6 BUN/Creatinine Ratio 15 (6-20) Glucose Level 103 mg/dL (70-99) H Calcium Level 8.3 mg/dL (8.5-10.1) L Total Bilirubin 0.5 mg/dL (0.2-1.0) Aspartate Amino Transferase (AST) 17 U/L (15-37) Alanine Aminotransferase (ALT) 26 U/L (16-63) Alkaline Phosphatase 81 U/L (46-116) Total Protein 7.5 g/dL (6.4-8.2) Albumin 3.8 g/dL (3.4-5.0) Albumin/Globulin Ratio 1.0 (1.0-1.7) Lipase 88 U/L (73-393) (RATNA THAKUR APRN) EKG EKG [] (RATNA THAKUR APRN) Radiology/Procedures Radiology/Procedures [] (RATNA THAKUR APRN) Heart Score C/O Chest Pain: No Risk Factors: Risk Factors: DM, Current or recent (<one month) smoker, HTN, HLP, family history of CAD, obesity. Risk Scores: Risk Factors: DM, Current or recent (<one month) smoker, HTN, HLP, family history of CAD, obesity. (RATNA THAKUR APRN) Course & Med Decision Making Course & Med Decision Making Pertinent Labs and Imaging studies reviewed. (See chart for details) 30-year-old male, vital signs reviewed, presents emergency department concerning he may have caught the flu bug his son had 2 days ago. Patient's physical examination and presentation consistent with a gastritis versus gastroenteritis, most likely viral in nature related to other family members with similar symptoms. Will order CBC, CMP, lipase, urinalysis assay, 1 L normal saline, 30 mg IV Toradol, 4 mg Zofran. Patient's labs unremarkable, upon reevaluation of the patient, the patient reports he feels much better and is ready to go home. Patient had no vomiting or diarrhea spells while in the emergency department. Discussed with patient incr ease oral fluids at home, strict follow-up with primary care soon for ongoing symptoms, return to ER precaution concerns, patient is amenable to and gave verbal understanding of ED discharge planning. Discussed with the patient all findings and diagnostic testing as well as the need to follow-up with their primary care provider for further evaluation and treatment or return to the ED if any new or worsening symptoms. Strict return precautions were also discussed at length, the patient voiced understanding and agreement with the discharge planning. The patient was nontoxic in appearance, in no apparent distress, and hemodynamically stable at the time of disposition. (RATNA THAKUR APRN) Dragon Disclaimer Dragon Disclaimer This electronic medical record was generated, in whole or in part, using a voice recognition dictation system. (RATNA THAKUR APRN) Departure Departure: Impression: Primary Impression: Gastroenteritis Disposition: 01 HOME / SELF CARE / HOMELESS Condition: GOOD Referrals: CHELSEA OLSON MD (PCP) Patient Instructions: Viral Gastroenteritis Additional Instructions: You are seen today in the emergency department for nausea, vomiting, diarrhea. You had indicated your son was seen here 2 days ago for similar symptoms. Your physical examination and presentation is consistent with a viral gastroenteritis or a viral stomach bug. Your lab work did not reveal any concerning findings of infectious process, you were given 1 L of normal saline, 30 mg of Toradol for pain, and 4 mg of IV Zofran for nausea, you reported your symptoms have resolved. Please increase fluid intake at home for a period of time while stomach bug is running its course. Follow-up with your primary care physician for ongoing symptoms. Return to the emergency department for worsening symptoms or other concerns. Keep all further doctor appointments. Thank you for visiting our Emergency Department. It was a pleasure taking care of you today in the emergency department and we appreciate you trusting us with your care. If any additional problems come up don't hesitate to return to visit us. Please follow up with your primary care provider so they can plan additional care if needed and know about the problem that you had. If symptoms worsen come back to the Emergency Department. Any concerning symptoms that start such as chest pain, shortness of air, weakness or numbness on one side of the body, running high fevers or any other concerning symptoms return to the ER. EMERGENCY DEPARTMENT GENERAL DISCHARGE INSTRUCTIONS Thank you for coming to [facility] (ED) today and trusting us with you care. We trust that you had a positivie experience in our Emergency Department. If you wish to speak to the department management, you may call the director at [phone]. YOUR FOLLOW UP INSTRUCTIONS ARE FOLLOWS: 1. Do you have a private Doctor? If you do not have a private doctor, please ask for a resource list of physicians or clinics that may be able to assist you with follow up care. 2. The Emergency Physician has interpreted your x-rays. The X-Ray specialist will also review them. If there is a change in the findings, you will be notified in 48 hours when at all possible. 3. A lab test or culture has been done, your results will be reviewed and you will be notified if you need a change in treatment. ADDITIONAL INSTRUCTIONS AND INFORMATION: 1. Your care today has been supervised by a physician who is specially trained in emergency care. Many problems require more than one evaluation for a complete diagnosis a nd treatment. We recommend that you schedule your follow up appointment as recommended to ensure complete treatment of you illness or injury. If you are unable to obtain follow up care and continue to have a problem, or if your condition worsens, we recommend that you return to the ED. 2. We are not able to safely determine your condition over the phone nor are we able to give sound medical advice over the phone. For these safety reasons, if you call for medical advice we will ask you to come to the ED for further evaluation. 3. If you have any questions regarding these discharge instructions please call the ED at [phone]. SAFETY INFORMATION: In the interest of safety, wellness, and injury prevention; we encourage you to wear your sealbelt, if you smoke; quite smoking, and we encourage family to use a protective helmet for bicycling and other sporting events that present an increased risk for head injury. IF YOUR SYMPTOMS WORSEN OR NEW SYMPTOMS DEVELOP, OR YOU HAVE CONCERNS ABOUT YOUR CONDITION; OR IF YOUR CONDITION WORSENS WHILE YOU ARE WAITING FOR YOUR FOLLOW UP APPOINTMENT; EITHER CONTACT YOUR PRIMARY CARE DOCTOR, THE PHYSICIAN WHOSE NAME AND NUMBER YOU WERE GIVEN, OR RETURN TO THE ED IMMEDIATELY. Attending Signature Attending Signature I have reviewed the PA/[employer]ULTURE [employer] PROFESSOR's note and plan of care. I was available for consultation as needed during the patient's visit in the emergency department. I agree with the clinical impression, plan, and disposition. (RATNA SILVA DO) RATNA THAKUR APRN Apr 11, 2021 12:46 RATNA SILVA DO Apr 12, 2021 15:25
[2021-04-11 13:05] LABS: BILIRUBIN,URINE NEG (NEG); CLARITY,URINE CLEAR; COLOR,URINE YELLOW; GLUCOSE,URINE NEG (NEG); NITRITE,URINE NEG (NEG); UROBILINOGEN,URINE 0.2 mg/dL (0.2 mg/dL)
[2021-04-11 13:09] LABS: BACTERIA,URINE 0 /HPF (0-FEW); RBC,URINE 0 /HPF (0-2); WBC,URINE 0 /HPF (0-4)
== END 2021-04-11 13:00 | disposition home or self-care (01) ==
LOC: ER 09:48
DX: K52.9 Noninfective gastroenteritis and colitis, unspecified (principal); F17.210 Nicotine dependence, cigarettes, uncomplicated; K21.9 Gastro-esophageal reflux disease without esophagitis; Z88.0 Allergy status to penicillin; Z88.1 Allergy status to other antibiotic agents; Z88.2 Allergy status to sulfonamides
CPT/HCPCS: 36415; 80053; 81001; 83690; 85025; 96361; 96374; 96375; 99284; J1885; J2405; J7030

== ENCOUNTER 2021-04-22 10:42 | Emergency (ER) | payer OTHER ==
[~2021-04-22] VITALS: Ht 175.3 cm; Wt 115.0 kg
[2021-04-22] MEDS ORDERED: CYCL10TA19 PO (11:43)
[2021-04-22] MEDS ORDERED: IBUP600T16 PO (11:43)
--- NOTE | 2021-04-22 11:43 | PHYS DOC ---
Past History Past Medical History: Anxiety, Bronchitis, GERD, Other Additional Past Medical Histor: Tachycardia Past Surgical History: Appendectomy Smoking: Cigarettes, Less than 1pk/day Alcohol Use: Rarely Drug Use: None General Adult EDM: Chief Complaint: BACK PAIN - NO INJURY HPI: HPI: Patient is a 30-year-old male that presents today with midthoracic back pain. Patient states he woke up this morning and was walking around and had a sudden onset of midthoracic back pain, patient states he had an echocardiogram done at [facility] this morning and did go to that appointment, but then decided to come here to the emergency department at [facility] for further evaluation of his back pain. Patient states he recently had a Holter monitor as well for chest tightness, and was evaluated by his primary care physician 2 days ago. Patient also stated that he has had an exposure to Covid over 14 days ago and had a negative test last Thursday, patient states he has a test scheduled for tomorrow at [facility]. Review of Systems: Review of Systems: Constitutional: Denies fever or chills Eyes: Denies change in visual acuity HENT: Denies nasal congestion or sore throat Respiratory: Denies cough or shortness of breath Cardiovascular: Denies chest pain or edema GI: Denies abdominal pain, nausea, vomiting, bloody stools or diarrhea : Denies dysuria Musculoskeletal: Midthoracic back pain Integument: Denies rash Neurologic: Denies headache, focal weakness or sensory changes Endocrine: Denies polyuria or polydipsia Lymphatic: Denies swollen glands Psychiatric: Denies depression or anxiety Allergies: Allergies: Allergies Coded Allergies Type Severity Reaction Last Updated Verified doxycycline Allergy Severe Hives 04/22/21 Yes Penicillins Allergy Intermediate 04/22/21 Yes amoxicillin Allergy Intermediate rash 04/22/21 No clavulanic acid Allergy Intermediate 04/22/21 No sulfamethoxazole Allergy Intermediate 04/22/21 Yes trimethoprim Allergy Intermediate 04/22/21 Yes Physical Exam: PE: Constitutional: Well developed, well nourished, no acute distress, non-toxic appearance. [] HENT: Normocephalic, atraumatic, bilateral external ears normal, oropharynx moist, no oral exudates, nose normal. [] Eyes: PERRLA, EOMI, conjunctiva normal, no discharge. [] Neck: Normal range of motion, no tenderness, supple, no stridor. [] Cardiovascular:Heart rate regular rhythm, no murmur [] Lungs & Thorax: Bilateral breath sounds clear to auscultation [] Abdomen: Bowel sounds normal, soft, no tenderness, no masses, no pulsatile masses. [] Skin: Warm, dry, no erythema, no rash. [] Back: Tenderness located mid thoracic area around T10-T11 no midline tenderness musculoskeletal pain with trigger points noted] Extremities: No tenderness, no cyanosis, no clubbing, ROM intact, no edema. [] Neurologic: Alert and oriented X 3, normal motor function, normal sensory function, no focal deficits noted. [] Psychologic: Affect normal, judgement normal, mood normal. [] Current Patient Data: Vital Signs: Vital Signs Date Time Temp Pulse Resp B/P (MAP) Pulse Ox O2 Delivery O2 Flow Rate FiO2 04/22/21 10:54 97.9 89 20 137/76 (96) 99 Room Air EKG: EKG: [] Radiology/Procedures: Radiology/Procedures: [] Heart Score: C/O Chest Pain: N/A Risk Factors: Risk Factors: DM, Current or recent (<one month) smoker, HTN, HLP, family history of CAD, obesity. Risk Scores: Score 0 - 3: 2.5% MACE over next 6 weeks - Discharge Home Score 4 - 6: 20.3% MACE over next 6 weeks - Admit for Clinical Observation Score 7 - 10: 72.7% MACE over next 6 weeks - Early Invasive Strategies Course & Med Decision Making: Course & Med Decision Making Pertinent Labs and Imaging studies reviewed. (See chart for details) After examination, and the fact the patient was at the hospital and evaluated via echocardiogram through cardiology we will treat this patient for musculoskeletal pain, will give an injection of Toradol while here in the emergency department because patient drove, will send a prescription for Flexeril and Motrin to his pharmacy and have him follow-up with his primary care physician towards the end of the week Rosey Disclaimer: Rosey Disclaimer: This electronic medical record was generated, in whole or in part, using a voice recognition dictation system. Departure Departure: Impression: Primary Impression: Back pain Qualified Codes: M54.6 - Pain in thoracic spine Disposition: HOME / SELF CARE / HOMELESS Condition: STABLE Referrals: CHELSEA OLSON MD (PCP) Patient Instructions: Back Pain, Adult Additional Instructions: Ice to affected area 20 minutes on 3-4 times daily Motrin 600 mg every 6 hours as needed for pain Flexeril 10 mg 1 tablet every 8 hours as needed for muscle spasm Follow-up with primary care physician on or Thursday for further management Scripts Ibuprofen (IBUPROFEN) 600 Mg Tablet 600 MG PO PRN Q6HRS PRN for PAIN, #20 TAB Prov: DAVEY MAURICIO 04/22/21 Cyclobenzaprine Hcl (CYCLOBENZAPRINE HCL) 10 Mg Tablet 1 TAB PO TID PRN PRN for PAIN, #20 TAB Prov: DAVEY MAURICIO 04/22/21 DAVEY MAURICIO UX DESIGNER Apr 22, 2021 11:43
[2021-04-22] MEDS ORDERED: KETOROLAC 60 MG/2 ML VIAL. IM ONE (11:45)
[2021-04-22 12:07] VITALS: BP 109/71
== END 2021-04-22 12:07 | disposition home or self-care (01) ==
LOC: ER 10:42
DX: M54.6 Pain in thoracic spine (principal); R07.89 Other chest pain; F41.9 Anxiety disorder, unspecified; K21.9 Gastro-esophageal reflux disease without esophagitis; F17.210 Nicotine dependence, cigarettes, uncomplicated; Z88.0 Allergy status to penicillin; Z88.1 Allergy status to other antibiotic agents
CPT/HCPCS: 96372; 99283; J1885

== ENCOUNTER 2021-04-25 07:51 | Emergency (ER) | payer OTHER ==
[~2021-04-25] VITALS: Ht 175.3 cm; Wt 115.0 kg
[2021-04-25] MEDS ORDERED: KETOROLAC 30 MG/ML VIAL. IVP ONE (08:45)
[2021-04-25] MEDS ORDERED: IV NORMAL SALINE 1,000ML 1,000 ML IV SCH (08:45)
[2021-04-25] MEDS ORDERED: IOHEXOL 350 MG/ML 100 ML VIAL. IV ONE (08:45)
[2021-04-25] MEDS ORDERED: ORPHENADRINE CITRATE 60 MG/2 ML VIAL. IV ONE (08:45)
[2021-04-25] MEDS ORDERED: CONTRAST GIVEN. MC PRN (09:00)
[2021-04-25 09:24] LABS: BASO # 0.1 x10^3/uL (0.0-0.2); BASO % 1 % (0-3); EOS # 0.2 x10^3/uL (0.0-0.7); EOS % 2 % (0-3); HEMATOCRIT 44.5 % (39.0-53.0); HEMOGLOBIN 14.8 g/dL (13.0-17.5); LYMPH # 2.6 x10^3/uL (1.0-4.8); LYMPH % 24 % (24-48); MEAN CORPUSCULAR HEMOGLOBIN 28 pg (25-35); MEAN CORPUSCULAR HGB CONC 33 g/dL (31-37); MEAN CORPUSCULAR VOLUME 85 fL (79-100); MONO # 0.8 x10^3/uL (0.0-1.1); MONO % 7 % (0-9); NEUT # 7.1 x10^3uL (1.8-7.7); NEUT % 66 % (31-73); PLATELET COUNT 397 x10^3/uL (140-400); RED BLOOD COUNT 5.21 x10^6/uL (4.30-5.70); RED CELL DISTRIBUTION WIDTH 13.6 % (11.5-14.5); WHITE BLOOD COUNT 10.7 x10^3/uL (4.0-11.0)
[2021-04-25 09:56] LABS: CREATININE 1.1 mg/dL (0.7-1.3); GFR 78.6; POTASSIUM 4.1 mmol/L (3.5-5.1)
--- NOTE | 2021-04-25 10:01 | RAD ---
EXAM: CT CHEST WITH CONTRAST - PULMONARY ANGIOGRAM CT ABDOMEN AND PELVIS WITHOUT CONTRAST INDICATION: Pleuritic chest pain, Covid, evaluate for PE. Right flank pain, evaluate for calculus COMPARISON: CT abdomen pelvis 06/17/2020. TECHNIQUE: Helical CT of the abdomen and pelvis performed without contrast. Helical CT of the chest performed after the administration of 100 mL Omnipaque [address] of the chest was timed for angiographic evaluation of the pulmonary arteries per PE protocol. Coronal and sagittal 3D MIP reformations were obtained of the chest. Sagittal and coronal reformats were obtained of the abd omen and pelvis. One or more of the following individualized dose reduction techniques were utilized for this examinat ion: 1. Automated exposure control 2. Adjustment of the mA and/or kV according to patient size 3. Use of iterative reconstruction technique. FINDINGS: CHEST: Pulmonary Arteries: Contrast bolus is adequate. No acute pulmonary embolism. Heart/Systemic Vasculature: Heart is normal in size. No pericardial effusion. Mediastinum and maurilio: Small mediastinal lymph nodes, likely reactive. Lungs and pleura: The lungs are clear. No pleural effusion or pneumothorax. Neck/Axilla/Body Wall: No axillary lymphadenopathy. Bones: No acute osseous abnormality in the chest. ABDOMEN AND PELVIS: Liver: Normal noncontrast appearance of the liver. Gallbladder/Biliary Tree: Normal. Pancreas: Normal. Spleen: Normal. Adrenal Glands: Normal. Kidneys/Ureters/Bladder: Kidneys are normal in size. No nephrolithiasis or hydronephrosis. The ureter s and bladder are normal Reproductive Organs: Prostate gland is normal. Stomach, small bowel, and colon: The stomach is normal. There is no small bowel obstruction. There ar e surgical changes of appendectomy. The colon is normal. Vasculature: Abdominal aorta is normal in caliber. Lymph Nodes: No lymphadenopathy. Peritoneum and retroperitoneum: No free fluid or free air. Bones: No acute osseous abnormality in the abdomen and pelvis. 9 mm sclerotic lesion in the left acet abulum unchanged and likely bone island. IMPRESSION: 1. No acute pulmonary embolism or evidence of pneumonia. 2. No acute abnormality in the abdomen and pelvis. Electronically signed by: Selina Fox MD (04/25/2021 9:59 AM) [facility]
[2021-04-25 10:06] LABS: ALBUMIN 4.2 g/dL (3.4-5.0); ALBUMIN/GLOBULIN RATIO 1.2 (1.0-1.7); MAGNESIUM 2.3 mg/dL (1.8-2.4); TOTAL BILIRUBIN 0.3 mg/dL (0.2-1.0); TOTAL PROTEIN 7.6 g/dL (6.4-8.2)
--- NOTE | 2021-04-25 10:09 | PHYS DOC ---
Past History Past Medical History: Anxiety, Bronchitis, GERD, Other Additional Past Medical Histor: Tachycardia Past Surgical History: Appendectomy Smoking: Cigarettes, Less than 1pk/day Alcohol Use: Rarely Drug Use: None General Adult EDM: Chief Complaint: BACK PAIN - NO INJURY HPI: HPI: Patient is a [age] year old [sex] who presents with [] Review of Systems: Review of Systems: Constitutional: Denies fever or chills Eyes: Denies redness or eye pain HENT: Denies nasal congestion or sore throat Respiratory: Denies cough or shortness of breath Cardiovascular: Denies chest pain or palpitations GI: Denies abdominal pain, nausea, or vomiting : Denies dysuria or hematuria Musculoskeletal: Denies back pain or joint pain Integument: Denies rash or skin lesions Neurologic: Denies headache, focal weakness or sensory changes Complete systems were reviewed and found to be within normal limits, except as documented in this note. Current Medications: Current Meds: Current Medications Medications (Trade) Dose Ordered Sig/Lionel Start Time Stop Time Status Last Admin Dose Admin Info (Do NOT chart on this entry -- for MONITORING) 1 each PRN DAILY PRN 04/25/21 09:00 04/27/21 08:59 Iohexol (Omnipaque 350 Mg/ml) 100 ml 1X ONCE 04/25/21 08:45 04/25/21 08:46 DC 04/25/21 09:16 100 ML Ketorolac Tromethamine (Toradol 30mg Vial) 15 mg 1X ONCE 04/25/21 08:45 04/25/21 08:46 DC 04/25/21 08:56 15 MG Orphenadrine Citrate (Norflex) 60 mg 1X ONCE 04/25/21 08:45 04/25/21 08:46 DC 04/25/21 08:55 60 MG Sodium Chloride 1,000 ml @ 1,000 mls/hr Q1H 04/25/21 08:45 04/25/21 09:44 DC 04/25/21 08:56 1,000 MLS/HR Allergies: Allergies: Allergies Coded Allergies Type Severity Reaction Last Updated Verified doxycycline Allergy Severe Hives 04/25/21 Yes Penicillins Allergy Intermediate 04/25/21 Yes amoxicillin Allergy Intermediate rash 04/25/21 No clavulanic acid Allergy Intermediate 04/25/21 No sulfamethoxazole Allergy Intermediate 04/25/21 Yes trimethoprim Allergy Intermediate 04/25/21 Yes Physical Exam: PE: Constitutional: Well developed, well nourished, no acute distress, non-toxic appearance HENT: Normocephalic, atraumatic Eyes: PERRL, EOMI, conjunctiva normal, no discharge Neck: Normal range of motion, no tenderness, supple Lungs & Thorax: No respiratory distress, equal chest rise and fall Abdomen: Soft, no tenderness Skin: Warm, dry, no erythema, no rash Back: No tenderness, no CVA tenderness Extremities: No tenderness, ROM intact, no edema Neurologic: Alert and oriented X 3, normal motor function, normal sensory function, no focal deficits noted Psychologic: Affect normal, judgment normal Current Patient Data: Labs: Laboratory Tests Test 04/25/21 08:52 White Blood Count 10.7 x10^3/uL (4.0-11.0) Red Blood Count 5.21 x10^6/uL (4.30-5.70) Hemoglobin 14.8 g/dL (13.0-17.5) Hematocrit 44.5 % (39.0-53.0) Mean Corpuscular Volume 85 fL (79-100) Mean Corpuscular Hemoglobin 28 pg (25-35) Mean Corpuscular Hemoglobin Concent 33 g/dL (31-37) Red Cell Distribution Width 13.6 % (11.5-14.5) Platelet Count 397 x10^3/uL (140-400) Neutrophils (%) (Auto) 66 % (31-73) Lymphocytes (%) (Auto) 24 % (24-48) Monocytes (%) (Auto) 7 % (0-9) Eosinophils (%) (Auto) 2 % (0-3) Basophils (%) (Auto) 1 % (0-3) Neutrophils # (Auto) 7.1 x10^3uL (1.8-7.7) Lymphocytes # (Auto) 2.6 x10^3/uL (1.0-4.8) Monocytes # (Auto) 0.8 x10^3/uL (0.0-1.1) Eosinophils # (Auto) 0.2 x10^3/uL (0.0-0.7) Basophils # (Auto) 0.1 x10^3/uL (0.0-0.2) Sodium Level 140 mmol/L (136-145) Potassium Level 4.1 mmol/L (3.5-5.1) Chloride Level 105 mmol/L (98-107) Carbon Dioxide Level 27 mmol/L (21-32) Anion Gap 8 (6-14) Blood Urea Nitrogen 13 mg/dL (8-26) Creatinine 1.1 mg/dL (0.7-1.3) Estimated GFR (Cockcroft-Gault) 78.6 BUN/Creatinine Ratio 12 (6-20) Glucose Level 109 mg/dL (70-99) H Calcium Level 9.0 mg/dL (8.5-10.1) Magnesium Level Pending Total Bilirubin Pending Aspartate Amino Transferase (AST) Pending Alanine Aminotransferase (ALT) Pending Alkaline Phosphatase Pending Troponin I High Sensitivity 5 ng/L (4-75) JV-Vay-R-Type Natriuretic Peptide Pending Total Protein Pending Albumin Pending Albumin/Globulin Ratio Pending Lipase Pending Vital Signs: Vital Signs Date Time Temp Pulse Resp B/P (MAP) Pulse Ox O2 Delivery O2 Flow Rate FiO2 04/25/21 09:57 63 14 127/65 (85) 99 Room Air 04/25/21 08:13 98.7 EKG: EKG: @0908 NSR at 71bpm, NO ST elevation, QRS 90ms, QT/QTc 384/417ms Radiology/Procedures: Radiology/Procedures: PROCEDURE: CT CHEST WITH CONTRAST - PULMONARY ANGIOGRAM CT ABDOMEN AND PELVIS WITHOUT CONTRAST INDICATION: Pleuritic chest pain, Covid, evaluate for PE. Right flank pain, evaluate for calculus COMPARISON: CT abdomen pelvis 06/17/2020. TECHNIQUE: Helical CT of the abdomen and pelvis performed without contrast. Helical CT of the chest performed after the administration of 100 mL Omnipaque [address] of the chest was timed for angiographic evaluation of the pulmonary arteries per PE protocol. Coronal and sagittal 3D MIP reformati ons were obtained of the chest. Sagittal and coronal reformats were obtained of the abdomen and pelvis. One or more of the following individualized dose reduction techniques were utilized for this examination: 1. Automated exposure control 2. Adjustment of the mA and/or kV according to patient size 3. Use of iterative reconstruction technique. FINDINGS: CHEST: Pulmonary Arteries: Contrast bolus is adequate. No acute pulmonary embolism. Heart/Systemic Vasculature: Heart is normal in size. No pericardial effusion. Mediastinum and maurilio: Small mediastinal lymph nodes, likely reactive. Lungs and pleura: The lungs are clear. No pleural effusion or pneumothorax. Neck/Axilla/Body Wall: No axillary lymphadenopathy. Bones: No acute osseous abnormality in the chest. ABDOMEN AND PELVIS: Liver: Normal noncontrast appearance of the liver. Gallbladder/Biliary Tree: Normal. Pancreas: Normal. Spleen: Normal. Adrenal Glands: Normal. Kidneys/Ureters/Bladder: Kidneys are normal in size. No nephrolithiasis or hydronephrosis. The ureters and bladder are normal Reproductive Organs: Prostate gland is normal. Stomach, small bowel, and colon: The stomach is normal. There is no small bowel obstruction. There are surgical changes of appendectomy. The colon is normal. Vasculature: Abdominal aorta is normal in caliber. Lymph Nodes: No lymphadenopathy. Peritoneum and retroperitoneum: No free fluid or free air. Bones: No acute osseous abnormality in the abdomen and pelvis. 9 mm sclerotic lesion in the left acetabulum unchanged and likely bone island. IMPRESSION: 1. No acute pulmonary embolism or evidence of pneumonia. 2. No acute abnormality in the abdomen and pelvis. Electronically signed by: Selina Fox MD (04/25/2021 9:59 AM) [facility] Heart Score: C/O Chest Pain: Yes HEART Score for Chest Pain: HEART Score for Chest Pain Response (Comments) Value History Slighlty/Non-Suspicious 0 ECG Normal 0 Age < 45 0 Risk Factors No Risk Factors 0 Troponin < Normal Limit 0 Total 0 Risk Factors: Risk Factors: DM, Current or recent (<one month) smoker, HTN, HLP, family history of CAD, obesity. Risk Scores: Score 0 - 3: 2.5% MACE over next 6 weeks - Discharge Home Score 4 - 6: 20.3% MACE over next 6 weeks - Admit for Clinical Observation Score 7 - 10: 72.7% MACE over next 6 weeks - Early Invasive Strategies Course & Med Decision Making: Course & Med Decision Making Pertinent Labs and Imaging studies reviewed. (See chart for details) Patient stable for discharge with outpatient follow-up with PCP. Discussed findings and plan with patient, who acknowledges understanding and agreement. Rosey Disclaimer: Rosey Disclaimer: This electronic medical record was generated, in whole or in part, using a voice recognition dictation system. Departure Departure: Impression: Primary Impression: Acute flank pain Additional Impressions: Pleuritic pain History of COVID-19 Disposition: 01 HOME / SELF CARE / HOMELESS Condition: STABLE Referrals: CHELSEA OLSON MD (PCP) Patient Instructions: Chest Wall Pain, Nasy-tn-Tbed, Flank Pain, [id number], Viral Syndrome Additional Instructions: You have previously been diagnosed with COVID-19. It is an infection caused by a new type of coronavirus. COVID-19 will cause cold-like or mild flu symptoms in most. It can cause more severe symptoms like problems breathing in some. There is no treatment for COVID-19. The body will clear the infection over time. Self-care will help to ease discomfort. Steps to Take: Self-Care Rest as needed. Healthy habits may help you feel better. Steps include: Choose healthy foods including fruits and vegetables. Drink water throughout the day. Get plenty of sleep each night. If you smoke, try to quit. It may ease breathing. Avoid alcohol. Keep Others Healthy The virus can spread to others. Droplets are released every time you sneeze or cough. The droplets can get into the mouth, nose, or eyes of people near you and lead to infection. To lower the chances of spreading COVID-19 to others: Stay at home until your doctor has said it is safe to leave. If you tested positive this will mean staying isolated until both of the following are true: At least 7 days have passed since the start of illness. You are free of fever for at least 72 hours without the use of medicine. During this time: - Avoid public areas, events, or transportation. Do not return to work or school until your doctor has said it is safe to do so. - Call ahead if you need to go to a medical center. Let them know you may have COVID-19. It will help them guide you where to go. They may also ask you to wear a facemask when you come to the office. - If you call for emergency medical services, let them know you may have COVID- 19. While at home: - Try to avoid close contact with others. Stay about 6 feet away. - If possible, spend most of your time in a separate room from others. - Use a face mask if you will be in close contact with others such as sharing a room or vehicle. - Have someone wipe down common surfaces in the home. Use household satin finisher every day on areas like doorknobs, counters, or sinks. - Cough or sneeze into a tissue. Throw the tissue away right after use. If a t issue is not available, cough or sneeze into your elbow. - Wash your hands often. Wash them after sneezing or coughing. Use soap and water and wash for at least 20 seconds. Alcohol based hand building cleaner can be used if soap and water is not available. - Do not prepare food for others. Avoid sharing personal items like forks, spoons, or toothbrushes. - Avoid close contact with pets while you are sick. There is no evidence of the virus passing to pets. This is a safety step until more is known about this virus. Isolation can be frustrating. Social interaction can help. Keep in touch with friends and family through phone and tech options. You can still interact with others in your home, just keep a safe distance of about 6 feet. Follow-up: Your doctors office will check in with you to see if there are any changes in your health. You may be asked to keep track of symptoms to share with them. They will also let you know when you are clear to be in public again. Problems to Look Out For: Contact your doctor if your recovery is not going as you expect. Get emergency care if you have problems such as: - Trouble breathing - Nonstop chest pain or pressure - Changes in awareness, confusion, or problems waking - Lips or face have bluish color - Worsening of symptoms If you think you have an emergency, call for emergency medical services right away. As taken from [facility] Hydrocodone Bit/Acetaminophen (HYDROCODONE-APAP 5-325 ) 1 Each Tablet 0.5-1 TAB PO PRN Q6HRS PRN for PAIN, #10 TAB 0 Refills Prov: RATNA SILVA DO 04/25/21 Orphenadrine Citrate (ORPHENADRINE CITRATE) 100 Mg Tablet.er 1 TAB PO BID PRN for MUSCLE PAIN, #14 TAB 0 Refills Prov: RATNA SILVA DO 04/25/21 RATNA SILVA DO Apr 25, 2021 10:09
[2021-04-25 10:16] LABS: BACTERIA,URINE 0 /HPF (0-FEW); BILIRUBIN,URINE NEG (NEG); CLARITY,URINE CLEAR; COLOR,URINE YELLOW; GLUCOSE,URINE NEG (NEG); NITRITE,URINE NEG (NEG); UROBILINOGEN,URINE 0.2 mg/dL (0.2 mg/dL); WBC,URINE OCC /HPF (0-4)
[2021-04-25 10:17] LABS: SQUAMOUS EPITHELIAL CELL,UR OCC /LPF
[2021-04-25] MEDS ORDERED: HYDR-2155 PO (11:13)
[2021-04-25] MEDS ORDERED: ORPH-16 PO (11:13)
[2021-04-25] MEDS ORDERED: HYDROcodone/APAP 5/325MG 1 TAB TABLET PO ONE (11:15)
[2021-04-25 11:28] VITALS: BP 122/66
--- NOTE | 2021-04-25 21:14 | EKG ---
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
== END 2021-04-25 11:32 | disposition home or self-care (01) ==
LOC: ER 07:55
DX: R07.81 Pleurodynia (principal); R10.9 Unspecified abdominal pain; K21.9 Gastro-esophageal reflux disease without esophagitis; F17.210 Nicotine dependence, cigarettes, uncomplicated; Z86.16 Personal history of COVID-19; Z88.0 Allergy status to penicillin; Z88.1 Allergy status to other antibiotic agents
CPT/HCPCS: 36415; 71275; 74176; 80053; 81001; 83605; 83690; 83735; 83880; 84484; 85025; 93005; 96361; 96374; 96375; 99285; J1885; J2360; J7030; Q9967

== ENCOUNTER 2021-06-15 20:59 | Emergency (ER) | payer OTHER ==
[~2021-06-15] VITALS: Ht 175.3 cm; Wt 115.0 kg
[~2021-06-15 20:59] MED LIST changes: +HYDR-2155 PO; +ORPH-16 PO
--- NOTE | 2021-06-15 21:38 | PHYS DOC ---
Past History Past Medical History: Anxiety, Bronchitis, GERD, Hypertension, Other Additional Past Medical Histor: Tachycardia Past Surgical History: Appendectomy Smoking: Cigarettes, Less than 1pk/day Alcohol Use: Rarely Drug Use: None Adult General HPI HPI Patient is a 30-year-old male with a past medical history significant for anxiety and hypertension who presents with a chief complaint of neck pain. States has had this neck pain over the last couple of years and has had MRIs and CAT scans which showed a little bit of arthritis but nothing serious. Denies any real trauma, travel, illnesses, fevers, pain or trouble swallowing, chest pain, shortness of breath, abdominal pain, nausea, vomiting. Denies any numbness/weakness/tingling. Denies any trouble sitting, standing or walking. States he is making urine and stool normally for him. States he took 2 Tylenol earlier. Review of Systems Review of Systems Review of system otherwise unremarkable except noted in HPI Allergies Allergies Allergies Coded Allergies Type Severity Reaction Last Updated Verified doxycycline Allergy Severe Hives 04/25/21 Yes Penicillins Allergy Intermediate 04/25/21 Yes amoxicillin Allergy Intermediate rash 04/25/21 No clavulanic acid Allergy Intermediate 04/25/21 No sulfamethoxazole Allergy Intermediate 04/25/21 Yes trimethoprim Allergy Intermediate 04/25/21 Yes Physical Exam Physical Exam Constitutional: Well developed, well nourished, no acute distress, non-toxic appearance. [] HENT: Normocephalic, atraumatic, bilateral external ears normal, oropharynx moist, no oral exudates, nose normal. [] Eyes: PERRLA, EOMI, conjunctiva normal, no discharge. [] Neck: Normal range of motion, no tenderness, supple, no stridor. [] Cardiovascular:Heart rate regular rhythm, no murmur [] Lungs & Thorax: Bilateral breath sounds clear to auscultation [] Skin: Warm, dry, no erythema, no rash. [] Back: No tenderness, no CVA tenderness. [] Extremities: No tenderness, no cyanosis, no clubbing, ROM intact, no edema. [] Neurologic: Alert and oriented X 3, normal motor function, normal sensory function, able to sit, stand and walk without issue, no focal deficits noted. [] Psychologic: Affect normal, judgement normal, mood normal. [] EKG EKG [] Radiology/Procedures Radiology/Procedures [] Heart Score C/O Chest Pain: No Risk Factors: Risk Factors: DM, Current or recent (<one month) smoker, HTN, HLP, family history of CAD, obesity. Risk Scores: Risk Factors: DM, Current or recent (<one month) smoker, HTN, HLP, family history of CAD, obesity. Course & Med Decision Making Course & Med Decision Making Patient is a 30-year-old male with acute on chronic neck pain Vital signs not concerning. Physical exam noted above. Given pain medicine. Given ice pack. Discussed symptomatic treatment at home. Discussed plan for including visit with primary care physician, and an MRI and possibly orthopedic consult. Gave strict return precautions to the ED. Patient grateful, verbalized understanding and agreed with plan of discharge. Dragon Disclaimer Dragon Disclaimer This electronic medical record was generated, in whole or in part, using a voice recognition dictation system. Departure Departure: Impression: Primary Impression: Neck pain Disposition: HOME / SELF CARE / HOMELESS Condition: GOOD Referrals: CHELSEA OLSON MD (PCP) Patient Instructions: Cervical Sprain, RICE - Routine Care for Injuries Additional Instructions: Fever coming into the emergency department tonight and allowing us to take care of you. Please read the attached information carefully to go over things we discussed. Please begin a Tylenol, ibuprofen, Benadryl and ice regimen as needed daily for symptom control as tolerated as long as you are not allergic. Please follow-up on Thursday with your primary care physician to discuss your ED visit. Please visit your eye doctor as soon as you can for reevaluation of your prescription. Please come back with new or concerning symptoms as discussed. NUHA GARCIA MD Jun 15, 2021 21:38
[2021-06-15] MEDS ORDERED: ACETAMINOPHEN 500 MG TABLET PO ONE (22:00)
[2021-06-15] MEDS ORDERED: diphenhydrAMINE HCL 25 MG CAPSULE PO ONE (22:00)
[2021-06-15] MEDS ORDERED: IBUPROFEN 600 MG TABLET. PO ONE (22:00)
[2021-06-15 22:25] VITALS: BP 138/76
== END 2021-06-15 22:25 | disposition home or self-care (01) ==
LOC: ER 20:59
DX: M54.2 Cervicalgia (principal); F41.9 Anxiety disorder, unspecified; K21.9 Gastro-esophageal reflux disease without esophagitis; I10 Essential (primary) hypertension; F17.210 Nicotine dependence, cigarettes, uncomplicated; Z88.1 Allergy status to other antibiotic agents; Z88.0 Allergy status to penicillin; Z88.2 Allergy status to sulfonamides
CPT/HCPCS: 99284; Q0163

== ENCOUNTER 2021-06-19 17:59 | Emergency (ER) | payer OTHER ==
[~2021-06-19] VITALS: Ht 175.3 cm; Wt 115.0 kg
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
[2021-06-19] MEDS ORDERED: KETOROLAC 60 MG/2 ML VIAL. IM ONE (18:30)
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
[2021-06-19] MEDS ORDERED: CYCL10TA19 PO (19:21)
== END 2021-06-19 19:34 | disposition home or self-care (01) ==
LOC: ER 17:59
DX: S10.93XA Contusion of unspecified part of neck, initial encounter (principal); M43.6 Torticollis; M62.838 Other muscle spasm; F41.9 Anxiety disorder, unspecified; F17.210 Nicotine dependence, cigarettes, uncomplicated; M19.90 Unspecified osteoarthritis, unspecified site; K21.9 Gastro-esophageal reflux disease without esophagitis; I10 Essential (primary) hypertension; Z88.1 Allergy status to other antibiotic agents; Z88.0 Allergy status to penicillin; Z88.2 Allergy status to sulfonamides; W20.8XXA Other cause of strike by thrown, projected or falling object, initial encounter; Y93.89 Activity, other specified; Y92.89 Other specified places as the place of occurrence of the external cause; Y99.8 Other external cause status
CPT/HCPCS: 72125; 96372; 99284; J1885

== ENCOUNTER 2021-07-28 15:52 | Emergency (ER) | payer OTHER ==
[~2021-07-28] VITALS: Ht 175.3 cm; Wt 112.4 kg
[2021-07-28] MEDS ORDERED: DEXAMETHASONE 4 MG TABLET PO ONE (16:15)
[2021-07-28] MEDS ORDERED: OSEL75CA PO (16:38)
--- NOTE | 2021-07-28 16:38 | PHYS DOC ---
Past History Past Medical History: Anxiety, Arthritis, Bronchitis, GERD, Hypertension, Other Additional Past Medical Histor: Tachycardia Past Surgical History: Appendectomy Smoking: Cigarettes, Less than 1pk/day Alcohol Use: Rarely Drug Use: None General Adult EDM: Chief Complaint: FLU SYMPTOM HPI: HPI: 30-year-old male presents with 2 day history of subjective fever and chills with shortness of breath, body aches, sore throat, and headache. Patient reports positive sick contact of son who recently was tested for influenza A. Patient reports history of COVID infection approxi-1 month ago. Denies leg swelling or calf tenderness. Denies pleuritic pain. Review of Systems: Review of Systems: Constitutional: Reports subjective fever and chills and myalgias Eyes: Denies redness or eye pain HENT: Reports nasal congestion and sore throat Respiratory: Reports shortness of breath; denies cough Cardiovascular: Denies chest pain or palpitations GI: Denies abdominal pain, nausea, or vomiting : Denies dysuria or hematuria Musculoskeletal: Denies back pain or joint pain Integument: Denies rash or skin lesions Neurologic: Reports headache; denies focal weakness or sensory changes Complete systems were reviewed and found to be within normal limits, except as documented in this note. Current Medications: Current Meds: Current Medications Medications (Trade) Dose Ordered Sig/Lionel Start Time Stop Time Status Last Admin Dose Admin Dexamethasone (Decadron) 10 mg 1X ONCE 07/28/21 16:15 07/28/21 16:16 DC Allergies: Allergies: Allergies Coded Allergies Type Severity Reaction Last Updated Verified doxycycline Allergy Severe Hives 04/25/21 Yes Penicillins Allergy Intermediate 04/25/21 Yes amoxicillin Allergy Intermediate rash 04/25/21 No clavulanic acid Allergy Intermediate 04/25/21 No sulfamethoxazole Allergy Intermediate 04/25/21 Yes trimethoprim Allergy Intermediate 04/25/21 Yes Physical Exam: PE: Constitutional: Well developed, well nourished, anxious, non-toxic appearance HENT: Normocephalic, atraumatic, pharynx clear and without exudate, TMs clear bilaterally Eyes: Conjunctiva normal, no discharge Neck: Normal range of motion, no tenderness, supple, no meningeal signs Lungs & Thorax: No respiratory distress, equal chest rise and fall Abdomen: Soft, no tenderness Skin: Warm, dry, no erythema, no rash Extremities: No tenderness, ROM intact, no edema Neurologic: Alert and oriented X 3, no focal deficits noted Psychologic: Affect anxious, judgment normal Current Patient Data: Vital Signs: Vital Signs Date Time Temp Pulse Resp B/P (MAP) Pulse Ox O2 Delivery O2 Flow Rate FiO2 07/28/21 15:58 101.8 113 18 129/81 (97) 99 Room Air EKG: EKG: [] Radiology/Procedures: Radiology/Procedures: [] Heart Score: C/O Chest Pain: N/A Course & Med Decision Making: Course & Med Decision Making Pertinent Lab studies reviewed. (See chart for details) Nontoxic patient presents with history of exposure to influenza A from son. HPI and physical exam consistent for viral syndrome. Rapid and PCR Covid testing pending. Rapid influenza also pending. Symptomatic treatment provided. Fever addressed. Patient stable for discharge with outpatient follow-up with PCP. Discussed findings and plan with patient, who acknowledges understanding and agreement. Patient advised given exposure to influenza A the likelihood of coming back positive for same was high. Tamiflu therefore provided. Patient subsequently was positive for influenza A. Dragon Disclaimer: Rosey Disclaimer: This electronic medical record was generated, in whole or in part, using a voice recognition dictation system. Departure Departure: Impression: Primary Impression: Viral upper respiratory illness Additional Impression: Exposure to influenza Disposition: 01 HOME / SELF CARE / HOMELESS Condition: STABLE Referrals: CHELSEA OLSON MD (PCP) Patient Instructions: Fever, Adult, [id number]-[id number], Influenza Facts, Influenza, Adult, Mytz-[id number], Viral Syndrome Additional Instructions: Use Tylenol and/or ibuprofen for fever. Take Tamiflu to completion. Use [id number] cold and cough remedies as needed for your other symptoms. Scripts Oseltamivir Phosphate (TAMIFLU) 75 Mg Capsule 1 CAP PO BID for influenza, #10 CAP Prov: RATNA SILVA DO 07/28/21 RATNA SILVA DO Jul 28, 2021 16:38
[2021-07-28] MEDS ORDERED: IBUPROFEN 600 MG TABLET. PO ONE (16:45)
[2021-07-28 16:53] VITALS: BP 122/75
[2021-07-28 17:24] LABS: INFLUENZA B PATIENT NEGATIVE (NEGATIVE)
[2021-07-28 17:27] LABS: INFLUENZA A PATIENT POSITIVE (NEGATIVE)
== END 2021-07-28 16:55 | disposition home or self-care (01) ==
LOC: ER 15:52
DX: J10.1 Influenza due to other identified influenza virus with other respiratory manifestations (principal); M19.90 Unspecified osteoarthritis, unspecified site; K21.9 Gastro-esophageal reflux disease without esophagitis; I10 Essential (primary) hypertension; F17.210 Nicotine dependence, cigarettes, uncomplicated; Z20.822 Contact with and (suspected) exposure to COVID-19; Z86.16 Personal history of COVID-19; Z88.1 Allergy status to other antibiotic agents; Z88.0 Allergy status to penicillin; Z88.2 Allergy status to sulfonamides
CPT/HCPCS: 87428; 99283; C9803; U0003

== ENCOUNTER 2021-07-28 23:21 | Emergency (ER) | payer OTHER ==
[~2021-07-28] VITALS: Ht 175.3 cm; Wt 111.9 kg
[~2021-07-28 23:21] MED LIST changes: +OSEL75CA PO
--- NOTE | 2021-07-28 23:59 | PHYS DOC ---
Past History Past Medical History: Anxiety, Arthritis, Bronchitis, GERD, Hypertension, Other Additional Past Medical Histor: Tachycardia, Influenza A, panic d/o Past Surgical History: Appendectomy Smoking: Cigarettes, Less than 1pk/day Alcohol Use: Rarely Drug Use: None General Adult EDM: Chief Complaint: FEVER HPI: HPI: Patient is a 30 year old male who presents with c/o fever X 2 days. Patient states that he was seen here earlier today with c/o fevers, chills, myalgias, dizziness and sore throat. He was ultimately diagnosed with influenza A and was discharged with tamiflu and told to treat any fevers at home with tylenol and ibuprofen. He states that he had been feeling mildly better but soon developed some fevers/chills again and checked his temperature which was 103.2. He became lightheaded with a mild 2/10 nonradiating generalized headache but denies any vision changes, LOC or nausea/vomiting. He took 1000mg of extra strength tylenol at 2200 and 800mg ibuprofen at 2240 with no relief. He has been able to tolerate fluids and started his tamiflu prescription. Review of Systems: Review of Systems: Constitutional: Reports fever or chills Eyes: Denies redness or eye pain HENT: Denies nasal congestion,; reports sore throat Respiratory: Denies cough; reports shortness of breath Cardiovascular: Denies chest pain, reports palpitations GI: Denies abdominal pain, nausea, or vomiting : Denies dysuria or hematuria Musculoskeletal: Denies back pain or joint pain Integument: Denies rash or skin lesions Neurologic: Reports headache; denies focal weakness or sensory changes Complete systems were reviewed and found to be within normal limits, except as documented in this note. Allergies: Allergies: Allergies Coded Allergies Type Severity Reaction Last Updated Verified doxycycline Allergy Severe Hives 04/25/21 Yes Penicillins Allergy Intermediate 04/25/21 Yes amoxicillin Allergy Intermediate rash 04/25/21 No clavulanic acid Allergy Intermediate 04/25/21 No sulfamethoxazole Allergy Intermediate 04/25/21 Yes trimethoprim Allergy Intermediate 04/25/21 Yes Physical Exam: PE: Constitutional: Well developed, well nourished, anxious, non-toxic appearance HENT: Normocephalic, atraumatic Eyes: PERRL, EOMI, conjunctiva normal, no discharge, no nystagmus Neck: Normal range of motion, no tenderness, supple, no meningeal signs Lungs & Thorax: No respiratory distress, equal chest rise and fall CV: Tachycardia; regular rhythm, no murmurs, +2 b/l radial pulses, less than 2 second capillary refill Abdomen: Soft, no tenderness Skin: Warm, dry, no erythema, no rash Extremities: No tenderness, ROM intact, no edema Neurologic: Alert and oriented X 3, normal motor function, normal sensory function, no focal deficits noted, normal [id number] Psychologic: Affect anxious, judgment normal Current Patient Data: Vital Signs: Vital Signs Date Time Temp Pulse Resp B/P (MAP) Pulse Ox O2 Delivery O2 Flow Rate FiO2 07/28/21 23:38 102.8 129 140/65 (90) 98 Room Air 07/28/21 23:25 18 Heart Score: C/O Chest Pain: N/A Course & Med Decision Making: Course & Med Decision Making Patient with known influenza A infection presents with report of continued fever this evening. Patient has been taking jsmj-sof-[id number] ibuprofen and or Tylenol as needed. Reports last dose of Tylenol at 2200 and ibuprofen just prior to ar rival. Patient previously received symptomatic dexamethasone. Patient is to start Tamiflu. Vital signs stable. Additional dose of Tylenol provided. Patient with interval improvement of fever. Advised symptoms also likely secondary to anxiety component. Anxiety therefore addressed. Patient stable for discharge with outpatient follow-up with PCP/mental health professional. Discussed findings and plan with patient and spouse, who acknowledge understanding and agreement. Rosey Disclaimer: [place] Disclaimer: This electronic medical record was generated, in whole or in part, using a voice recognition dictation system. Departure Departure: Impression: Primary Impression: Influenza A Additional Impression: Anxiety Disposition: 01 HOME / SELF CARE / HOMELESS Condition: STABLE Referrals: CHELSEA OLSON MD (PCP) Patient Instructions: Anxiety and Panic Attacks, [id number], Fever, Adult, [id number]-[id number], Influenza Facts, Influenza, Adult, [id number] RATNA SILVA DO Jul 28, 2021 23:59
[2021-07-29] MEDS: ACETAMINOPHEN 500 MG TABLET PO ONE (00:31)
[2021-07-29 00:32] VITALS: BP 125/65
[2021-07-29] MEDS: LORazepam 1 MG TABLET PO ONE (00:32)
== END 2021-07-29 00:38 | disposition home or self-care (01) ==
LOC: ER 23:21
DX: J10.1 Influenza due to other identified influenza virus with other respiratory manifestations (principal); F41.9 Anxiety disorder, unspecified; M19.90 Unspecified osteoarthritis, unspecified site; K21.9 Gastro-esophageal reflux disease without esophagitis; I10 Essential (primary) hypertension; F17.210 Nicotine dependence, cigarettes, uncomplicated; Z88.1 Allergy status to other antibiotic agents; Z88.0 Allergy status to penicillin; Z88.2 Allergy status to sulfonamides
CPT/HCPCS: 99283

== ENCOUNTER 2021-08-08 21:42 | Emergency (ER) | payer OTHER ==
[~2021-08-08] VITALS: Ht 175.3 cm; Wt 104.0 kg
[~2021-08-08 21:42] MED LIST changes: -OMEP20TA8 PO; +OMEP20TA91 PO
[2021-08-08 23:25] LABS: BASO # 0.1 x10^3/uL (0.0-0.2); BASO % 1 % (0-3); EOS # 0.2 x10^3/uL (0.0-0.7); EOS % 2 % (0-3); HEMOGLOBIN 14.3 g/dL (13.0-17.5); LYMPH # 4.2 x10^3/uL (1.0-4.8); LYMPH % 38 % (24-48); MEAN CORPUSCULAR HEMOGLOBIN 28 pg (25-35); MEAN CORPUSCULAR HGB CONC 33 g/dL (31-37); MEAN CORPUSCULAR VOLUME 86 fL (79-100); MONO # 0.8 x10^3/uL (0.0-1.1); MONO % 7 % (0-9); NEUT % 53 % (31-73); PLATELET COUNT 388 x10^3/uL (140-400); RED BLOOD COUNT 5.01 x10^6/uL (4.30-5.70); RED CELL DISTRIBUTION WIDTH 14.2 % (11.5-14.5); WHITE BLOOD COUNT 11.3 x10^3/uL (4.0-11.0)
[2021-08-08 23:27] LABS: CREATININE 1.1 mg/dL (0.7-1.3); GFR 78.6; POTASSIUM 3.6 mmol/L (3.5-5.1)
[2021-08-08] MEDS ORDERED: IV NORMAL SALINE 1,000ML 1,000 ML IV ONE (23:30)
[2021-08-08] MEDS ORDERED: ONDANSETRON PF 4 MG/2 ML VIAL. IVP ONE (23:30)
[2021-08-08 23:33] LABS: ALBUMIN/GLOBULIN RATIO 1.1 (1.0-1.7); TOTAL BILIRUBIN 0.3 mg/dL (0.2-1.0); TOTAL PROTEIN 7.6 g/dL (6.4-8.2)
--- NOTE | 2021-08-08 23:36 | PHYS DOC ---
Past History Past Medical History: Anxiety, Arthritis, Bronchitis, GERD, Hypertension, Other Additional Past Medical Histor: Tachycardia, Influenza A, panic d/o Past Surgical History: Appendectomy Smoking: Cigarettes, Less than 1pk/day Alcohol Use: None Drug Use: None General Adult EDM: Chief Complaint: ABDOMINAL PAIN HPI: HPI: 30-year-old male presents with right-sided abdominal pain. The patient started a keto diet a couple weeks ago. Since that time he has had more gas and generalized abdominal pain. He presents tonight because the pain has been a cramping sensation and persistent of moderate intensity. He has been having less severe and intermittent episodes prior to this and he just decided he had it checked out. Denies fever chills. He has been having bowel movements but has a history of difficulty with constipation. Review of Systems: Review of Systems: Constitutional: Denies fever or chills Eyes: Denies change in visual acuity HENT: Denies nasal congestion or sore throat Respiratory: Denies cough or shortness of breath Cardiovascular: Denies chest pain or edema GI: Right-sided abdominal pain. Denies nausea, vomiting, bloody stools or diarrhea : Denies dysuria Musculoskeletal: Denies back pain or joint pain Integument: Denies rash Neurologic: Denies headache, focal weakness or sensory changes Endocrine: Denies polyuria or polydipsia Lymphatic: Denies swollen glands Psychiatric: Denies depression or anxiety Current Medications: Current Meds: Current Medications Medications (Trade) Dose Ordered Sig/Lionel Start Time Stop Time Status Last Admin Dose Admin Ondansetron HCl (Zofran) 4 mg 1X ONCE 08/08/21 23:30 08/08/21 23:31 DC 08/08/21 23:33 4 MG Sodium Chloride 1,000 ml @ 1,000 mls/hr 1X ONCE 08/08/21 23:30 08/09/21 00:29 08/08/21 23:32 1,000 MLS/HR Allergies: Allergies: Allergies Coded Allergies Type Severity Reaction Last Updated Verified doxycycline Allergy Severe Hives 04/25/21 Yes Penicillins Allergy Intermediate 04/25/21 Yes amoxicillin Allergy Intermediate rash 04/25/21 No clavulanic acid Allergy Intermediate 04/25/21 No sulfamethoxazole Allergy Intermediate 04/25/21 Yes trimethoprim Allergy Intermediate 04/25/21 Yes Physical Exam: PE: Constitutional: Well developed, well nourished, obese, no acute distress, non- toxic appearance. [] HENT: Normocephalic, atraumatic, bilateral external ears normal, oropharynx moist, no oral exudates, nose normal. [] Eyes: PERRLA, EOMI, conjunctiva normal, no discharge. [] Neck: Normal range of motion, no tenderness, supple, no stridor. [] Cardiovascular:Heart rate regular rhythm, no murmur [] Lungs & Thorax: Bilateral breath sounds clear to auscultation [] Abdomen: Bowel sounds normal, soft, no tenderness, no masses, no pulsatile masses. [] Skin: Warm, dry, no erythema, no rash. [] Back: No tenderness, no CVA tenderness. [] Extremities: No tenderness, no cyanosis, no clubbing, ROM intact, no edema. [] Neurologic: Alert and oriented X 3, normal motor function, normal sensory function, no focal deficits noted. [] Psychologic: Affect normal, judgement normal, mood normal. [] Current Patient Data: Labs: Laboratory Tests Test 08/08/21 22:02 White Blood Count 11.3 x10^3/uL (4.0-11.0) H Red Blood Count 5.01 x10^6/uL (4.30-5.70) Hemoglobin 14.3 g/dL (13.0-17.5) Hematocrit 43.0 % (39.0-53.0) Mean Corpuscular Volume 86 fL (79-100) Mean Corpuscular Hemoglobin 28 pg (25-35) Mean Corpuscular Hemoglobin Concent 33 g/dL (31-37) Red Cell Distribution Width 14.2 % (11.5-14.5) Platelet Count 388 x10^3/uL (140-400) Neutrophils (%) (Auto) 53 % (31-73) Lymphocytes (%) (Auto) 38 % (24-48) Monocytes (%) (Auto) 7 % (0-9) Eosinophils (%) (Auto) 2 % (0-3) Basophils (%) (Auto) 1 % (0-3) Neutrophils # (Auto) 6.0 x10^3uL (1.8-7.7) Lymphocytes # (Auto) 4.2 x10^3/uL (1.0-4.8) Monocytes # (Auto) 0.8 x10^3/uL (0.0-1.1) Eosinophils # (Auto) 0.2 x10^3/uL (0.0-0.7) Basophils # (Auto) 0.1 x10^3/uL (0.0-0.2) Sodium Level 138 mmol/L (136-145) Potassium Level 3.6 mmol/L (3.5-5.1) Chloride Level 102 mmol/L (98-107) Carbon Dioxide Level 29 mmol/L (21-32) Anion Gap 7 (6-14) Blood Urea Nitrogen 18 mg/dL (8-26) Creatinine 1.1 mg/dL (0.7-1.3) Estimated GFR (Cockcroft-Gault) 78.6 BUN/Creatinine Ratio 16 (6-20) Glucose Level 101 mg/dL (70-99) H Calcium Level 9.0 mg/dL (8.5-10.1) Total Bilirubin 0.3 mg/dL (0.2-1.0) Aspartate Amino Transferase (AST) 21 U/L (15-37) Alanine Aminotransferase (ALT) 26 U/L (16-63) Alkaline Phosphatase 78 U/L (46-116) Total Protein 7.6 g/dL (6.4-8.2) Albumin 4.0 g/dL (3.4-5.0) Albumin/Globulin Ratio 1.1 (1.0-1.7) EKG: EKG: [] Radiology/Procedures: Radiology/Procedures: [] Impressions: EXAMINATION: CT ABDOMEN+PELVIS W CLINICAL HISTORY: Right lower quadrant pain. History of appendectomy. TECHNIQUE: CT of the abdomen and pelvis was performed using standard technique, scanning from just above the dome of the diaphragm to the symphysis pubis following administration of intravenous contrast. CT Dose Reduction Employed: One or more of the following individualized dose reduction techniques were utilized for this examination: 1. Automated exposure control 2. Adjustment of the mA and/or kV according to patient size 3. Use of iterative reconstruction technique. COMPARISON: 04/25/2021 FINDINGS: Visualized heart and lungs unremarkable. Collapsed gallbladder, suboptimally evaluated. Liver, pancreas, spleen, adrenal glands, and kidneys unremarkable. Minimally filled urinary bladder suboptimally evaluated. No bowel dilation or definite wall thickening. Appendectomy. No abdominal aortic or iliac artery aneurysm. No evidence of acute osseous abnormality. IMPRESSION: No evidence of acute abdominopelvic abnormality. Electronically signed by: Yonatan Mcgrath DO (08/09/2021 12:15 AM) [facility] DICTATED AND SIGNED BY: YONATAN MCGRATH DO DATE: 08/09/21 0011 CC: SILVESTRE BENAVIDES DO; CHELSEA OLSON MD ~ Heart Score: C/O Chest Pain: N/A Risk Factors: Risk Factors: DM, Current or recent (<one month) smoker, HTN, HLP, family history of CAD, obesity. Risk Scores: Score 0 - 3: 2.5% MACE over next 6 weeks - Discharge Home Score 4 - 6: 20.3% MACE over next 6 weeks - Admit for Clinical Observation Score 7 - 10: 72.7% MACE over next 6 weeks - Early Invasive Strategies Course & Med Decision Making: Course & Med Decision Making Pertinent Labs and Imaging studies reviewed. (See chart for details) The patient's labs are unremarkable. Urinalysis is negative for infection. His CT of the abdomen pelvis are unremarkable. I am not sure why the patient is having this moving around abdominal pain. He does not appear to be life- threatening at this time. He is stable for discharge. [] Dragon Disclaimer: Dragon Disclaimer: This electronic medical record was generated, in whole or in part, using a voice recognition dictation system. Departure Departure: Impression: Primary Impression: Abdominal pain Additional Impression: Anxiety Disposition: HOME / SELF CARE / HOMELESS Condition: STABLE Referrals: CHELSEA OLSON MD (PCP) Patient Instructions: Abdominal Pain, [id number] SILVESTRE BENAVIDES DO Aug 08, 2021 23:36
[2021-08-08] MEDS ORDERED: IOHEXOL 300 MG/ML 75 ML VIAL. IV ONE (23:45)
[2021-08-08] MEDS ORDERED: CONTRAST GIVEN. MC PRN (23:45)
--- NOTE | 2021-08-09 00:18 | RAD ---
EXAMINATION: CT ABDOMEN+PELVIS W CLINICAL HISTORY: Right lower quadrant pain. History of appendectomy. TECHNIQUE: CT of the abdomen and pelvis was performed using standard technique, scanning from just ab ove the dome of the diaphragm to the symphysis pubis following administration of intravenous contrast . CT Dose Reduction Employed: One or more of the following individualized dose reduction techniques wer e utilized for this examination: 1. Automated exposure control 2. Adjustment of the mA and/or kV ac cording to patient size 3. Use of iterative reconstruction technique. COMPARISON: 04/25/2021 FINDINGS: Visualized heart and lungs unremarkable. Collapsed gallbladder, suboptimally evaluated. Liver, pancreas, spleen, adrenal glands, and kidneys u nremarkable. Minimally filled urinary bladder suboptimally evaluated. No bowel dilation or definite wall thickening. Appendectomy. No abdominal aortic or iliac artery aneurysm. No evidence of acute osseous abnormality. IMPRESSION: No evidence of acute abdominopelvic abnormality. Electronically signed by: Yonatan Hernandez DO (08/09/2021 12:15 AM) [facility]
[2021-08-09 01:00] VITALS: BP 136/63
[2021-08-09 01:11] LABS: BACTERIA,URINE 0 /HPF (0-FEW); CLARITY,URINE CLEAR; COLOR,URINE YELLOW; GLUCOSE,URINE NEG (NEG); NITRITE,URINE NEG (NEG); UROBILINOGEN,URINE 0.2 mg/dL (0.2 mg/dL); WBC,URINE OCC /HPF (0-4)
== END 2021-08-09 01:34 | disposition home or self-care (01) ==
LOC: ER 21:42
DX: R10.84 Generalized abdominal pain (principal); F41.9 Anxiety disorder, unspecified; M19.90 Unspecified osteoarthritis, unspecified site; I10 Essential (primary) hypertension; K21.9 Gastro-esophageal reflux disease without esophagitis; F17.210 Nicotine dependence, cigarettes, uncomplicated; Z90.89 Acquired absence of other organs; Z88.1 Allergy status to other antibiotic agents; Z88.0 Allergy status to penicillin; Z88.2 Allergy status to sulfonamides
CPT/HCPCS: 36415; 74177; 80053; 81001; 85025; 96361; 96374; 99285; J2405; J7030; Q9967